=== PATIENT | female | born 1995 | race Caucasian/White ===

== ENCOUNTER → 2025-04-26 | Outpatient (CLI) | payer OTHER, SELFPAY ==
--- NOTE | 2025-04-26 15:47 | MRI_ITS ---
PROCEDURE: BRAIN WITHOUT CONTRAST 04/26/2025 REASON FOR EXAM: EPILEPSY AND HEADACHES TECHNIQUE: Procedure Code: MRIBR Modality: MR Procedure: BRAIN WITHOUT CONTRAST Multiplanar and multisequence images were obtained. FINDINGS: A cluster of FLAIR hyperintensities are noted in the subcortical and deep white matter of the right frontal lobe, nonspecific. Otherwise the brain parenchyma appears unremarkable. No rivera matter heterotopia or cortical dysplasia. The bilateral hippocampal gyri are symmetric, without asymmetric atrophy nor abnormal signal. The midline structures are intact, specifically the corpus callosum, septum pellucidum, pituitary gland, and cerebellar vermis. The cervicomedullary junction appears unremarkable. A 10 mm oval low T1, low T2 lesion is noted in the midline of the posterior scalp, probably representing a small sebaceous cyst. The paranasal sinuses and mastoid air cells are clear. MRI/Brain without Contrast IMPRESSION: Cluster of nonspecific FLAIR hyperintensities in the right frontal white matter . Diagnostic considerations include findings which can be seen in patients experiencing migraine headaches. Otherwise unremarkable MRI of the brain. 10 mm oval posterior scalp lesion, probably a sebaceous cyst. Reading Location: [id number]
--- OUTSIDE RECORDS SUMMARY | 2025-04-26 17:54 | XMS RPT_ITS | CCD ---
Author Organization [facility] Care Team Providers Care Pattern Developer Name Role Phone Sam Orlando Unavailable Unavailable Rosalina Santillan Unavailable Unavailable Rosalina Santillan MD Primary Care Provider Rosalina Santillan Unavailable Unavailable Unavailable HANS SIMMONS Referring UnavailHANS Savage Attending UnavailVicenta Jc Primary Care Unavailable Unavailable Primary Care Provider UnavailRosalina Ackerman MD Primary Care Provider [phone] Unavailable Primary Care Provider UnavailGERARD Aquino Attending Unavailable HANS SIMMONS Attending Unavailable HANS SIMMONS Attending Unavailable Rosalina Santillan MD Primary Care Provider Unavailable Primary Care Provider UnavailLIBERTAD Wiley Attending Unavailable Assessment, Health Risk Referring Unavaila ellis Garcia, Health Risk Attending UnavailHANS Savage Attending Unavailable HANS SIMMONS Referring Unavailable ROSALINA SANTILLAN Primary Care Unavailable ROSALINA SANTILLAN Attending Unavailable ROSALINA SANTILLAN Primary Care Unavailable CATE ZAPATA Attending Unavailable ROSALINA SANTILLAN Primary Care Unavailable Medications Current Medications Medication Drug Class(es) Dates Sig (Normalized) Sig (Original) cholecalciferol 0.05 mg oral tablet (7 sources) Vitamin D take 1 tablet by mouth once daily cholecalciferol (Vitamin D-3) 50 MCG (1999 UT) tablet Take 1 tablet (2,000 Units) by mouth once daily. Active ferrous sulfate 325 mg oral tablet (17 sources) Start: 06-04-2023 End: 12-20-2024 take 1 tablet by mouth once daily at breakfast FeroSul 325 (65 Fe) MG tablet TAKE 1 TABLET BY MOUTH DAILY WITH BREAKFAST 90 tablet 1 12/20/2024 Active fluconazole 150 mg oral tablet (1 source) Azole Antifungal Start: 10-12-2024 fluconazole (Diflucan) 150 mg tablet Indications: Theresa vaginitis Take 1 tablet by mouth every 72 hours as needed, up to 3 doses 3 tablet 10/12/2024 Active folic acid 1 mg oral tablet (20 sources) Start: 03-14-2020 End: 02-01-2025 take 1 tablet by mouth once daily folic acid (Folvite) 1 MG tablet Take 1,000 mcg by mouth daily. 05/21/2023 Active Start: 11-04-2013 folic acid 1 m g tablet Take 1,000 mcg by mouth. 0 11/04/2013 Active Comment on above: Take 1,000 mcg by mo uth. lamoTRIgine 150 mg oral tablet (20 sources) Mood Stabilizer, Anti-epileptic Agent Start: 07-17-2015 lamoTRIgine (LAMICTAL) 150 MG tablet 150 mg daily 150 mg in the morning, and 1.5 tablets in the evening (225 mg) 11 07/17/2015 Active Start: 05-06-2014 take 1 tablet by haim th once daily in the morning, then take 1 tablet by mouth once daily at bedtime lamoTRIgine (LaMICtal) 150 MG tablet TAKE 1 TABLET BY MOUTH EVERY MORNING and TAKE 1 & 1/2 (ONE AND ONE-HALF) TABLETS BY MOUTH EVERY DAY AT BEDTIME 05/21/2023 Active Comment on above: TAKE 1 TABLET BY HAIM TH EVERY MORNING and TAKE 1 & 1/2 (ONE AND ONE-HALF) TABLETS BY MOUTH EVERY DAY AT BEDTIME Multiple Vitamins-Minerals (THERAPEUTIC MULTIVITAMIN-MINERA LS) tablet (4 sources) take 1 tablet by mouth once daily Multiple Vitamins-Minerals (THERAPEUTIC MULTIVITAMIN-MINERALS) tablet Take 1 tablet by mouth daily 0 Active ofloxacin 3 mg/ml ophthalmic solution (1 source) Quinolone Antimicrobial Start: 06-26-19 End: 07-03-19 take 2 drop(s) into the eye(s) three times daily ofloxacin (OCUFLOX) 0.3 % ophthalmic solution Indications: Acute bacterial conjunctivitis of right eye Use 2 Drops in the right eye three times a day for 7 days. 5 mL 0 06/26/2023 07/03/2023 Active Comment on above: Use 2 Drops in the r ight eye three times a day for 7 days. omega-3 fatty acids-fish oil (One-Per-Day [place]-3) 684-1,200 mg capsule (3 sources) omega-3 fatty acids-fish oil (One-Per-Day [place]-3) 684-1,200 mg capsule Take by mouth. Active omega-3 fatty ac ids-fish oil (One-Per-Day [place]-3) 684-1,200 mg capsule Take by mouth. 0 Active spironolactone 50 mg oral tablet (8 sources) Aldosterone Antagonist Start: 04-19-2015 take 1 tablet by mouth twice daily spironolactone (ALDACTONE) 50 MG tablet Take 50 mg by mouth 2 times daily 0 04/19/2015 Active End: 03-14-2022 take 1 tablet by mouth once daily Spironolactone 50 MG Oral Tablet TAKE 1 TABLET DAILY. Quantity: 30 Refills: 4 Ordered: 14-Mar-2022 DO End : 14-Mar-2022 Complete vitamin b12 1 mg oral tablet (7 sources) Vitamin B12 take 1 tablet by mouth once daily cyanocobalamin (Vitamin B-12) 1,000 mcg tablet Take 1 tablet (1,000 mcg) by mouth once daily. Active Completed/Discontinued Medications Medication Drug Class(es) Dates Sig (Normalized) Sig (Original) ibuprofen 600 mg oral tablet (3 sources) Nonsteroidal Anti-inflammatory Drug Start: 06-21-2020 End: 03-14-2022 take 1 tablet by mouth every six hours Ibuprofen 600 MG Oral Tablet TAKE 1 TABLET EVERY 6 HOURS. Start one day pre-op Quantity: 15 Refills: 0 Ordered: 21-Jun-2020 DO Start : 21-Jun-2020 End : 14-Mar-2022 Complete norethindrone 0.35 mg oral tablet (1 source) Norethindrone 0. 35 MG Oral Tablet Refills: 0 Active [place] 3 1200 MG Oral Capsule (4 sources) [place] 3 1200 MG Oral Capsule TAKE DIRECTED. Quantity: 0 Refills: 0 Ordered: 14-Mar-2022 DO Active [place] 3 1200 MG Oral Capsule TAKE DIRECTED. Quantity: 0 Refills: 0 Ordered: 28-Feb-2021 DO Active Vitamin K TABS (4 sources) Vitamin K TABS T THIAGO 1 TABLET DAILY DIRECTED. Quantity: 0 Refills: 0 Ordered: 14-Mar-2022 DO Active Vitamin K TABS T THIAGO 1 TABLET DAILY DIRECTED. 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-relat ed (focal) (partial) epilepsy and epileptic syndromes with simple partial seizures, without mention of intractable epilepsy] Onset: 04-02-2023 04-03-2023 Chronic Epilepsy; convulsions (20 sources) Seizure; Translations: [Unspecified convulsions] Onset: 02-27-2021 Episodic Headache; including migraine (1 source) Tension-type headache; Translations: [Tension-type headache, unspecified, not intractable] 02-12-2024 Chronic Inflammation; infection of eye (except that caused by tuberculosis or sexually transmitteddisease) (1 source) Acute infectious conjunctivitis; Translations: [Unspecified acute conjunctivitis, right eye] 06-26-2023 Episodic Malaise and fatigue (7 sources) Malaise and fatigue; Translations: [Chronic fatigue, unspecified] Onset: 11-25-2024 06-03-2023 Chronic Malaise and fatigue (2 sources) Other malaise; Translations: [Other malaise] Onset: 11-25-2024 Episodic Menstrual disorders (5 sources) Irregular periods; Translations: [Irregular menstruation, unspecified] 06-03-2023 Chronic Mycoses (1 source) Candidiasis of vagina; Translations: [Theresa vaginitis] 10-12-2024 Episodic Nutritional deficiencies (2 sources) Vitamin D deficiency; Translations: [Vitamin D deficiency, unspecified] 10-24-2023 Chronic Nutritional deficiencies (2 sources) Iron deficiency; Translations: [Iron deficiency] 10-24-2023 Episodic Other lower respiratory disease (3 sources) Cough; Translations: [Cough in adult] 06-03-2023 Episodic Other screening for suspected conditions (not mental disorders or infectious disease) (2 sources) Patient encounter status; Translations: [Encounter for screening for lipoid disorders] 10-24-2023 Episodic Other skin disorders (4 sources) Loss of hair; Translations: [Nonscarring hair loss, unspecified] Episodic Other skin disorders (2 sources) Nonscarring hair loss, unspecified; Translations: [Nonscarring hair loss, unspecified] Onset: 11-25-2024 Episodic Residual codes; unclassified (2 sources) Family history of cancer of colon; Translations: [Family history of malignant neoplasm of digestive organs] 10-24-2023 Episodic Residual codes; unclassified (2 sources) Blood pressure alteration; Translations: [Other general symptoms and signs] 11-25-2024 Episodic Past or Other Problems Problem Classification Problem Date Documented Date Episodic/Chronic Headache; including migraine (2 sources) Headache; Translations: [Headache] Onset: 02-12-2024 Episodic Other aftercare (4 sources) Surgical follow-up; Translations: [Encounter for follow-up examination after completed treatment for conditions other than malignant neoplasm] Onset: 12-21-2015 Resolved: 02-19-2018 02-19-2018 Episodic Other and unspecified benign neoplasm (20 sources) Benign neoplasm, unspecified site; Translations: [Benign neoplasm of unspecified site] Onset: 10-27-2015 10-27-2015 Episodic Other skin disorders (20 sources) Cyst of scalp; Translations: [Follicular cyst of the skin and subcutaneous tissue, unspecified] Onset: 12-07-2015 12-07-2015 Episodic Other skin disorders (20 sources) Acne; Translations: [Acne, unspecified] Onset: 02-27-2021 02-27-2021 Episodic Unclassified (3 sources) Onset: 04-03-2023 Resolved: 02-02-2024 04-03-2023 NEGATED: Highlighted row has been ruled out! trauma (4 sources) trauma; Translations: [ trauma, unspecified] Episodic NEGATED: Highlighted row has been ruled out!Other injuries and conditions due to external causes (4 sources) H/O: head injury; Translations: [Personal history of other injury] Episodic NEGATED: Highlighted row has been ruled out!Other nervous system disorders (4 sources) H/O: meningitis; Translations: [Personal history of infections of the central nervous system] Episodic NEGATED: Highlighted row has been ruled out!Other nervous system disorders (4 sources) H/O: encephalitis; Translations: [Personal history of infections of the central nervous system] Episodic NEGATED: Highlighted row has been ruled out!Other nutritional; endocrine; and metabolic disorders (4 sources) Developmental delay; Translations: [Lack of normal physiological development, unspecified] Episodic NEGATED: Highlighted row has not occurred!Residual codes; unclassified (2 sources) Disease Episodic NEGATED: Highlighted row has been ruled out!Residual codes; unclassified (4 sources) H/O: febrile convulsions; Translations: [Personal history of other disorders of nervous system and sense organs] Episodic NEGATED: Highlighted row has been ruled out!Short gestation; low weight; and growth retardation (4 sources) Premature infant; Translations: [Other infants, unspecified [weight]] Episodic Results Test Name Value Interpretation Reference Range Facility 36on 12-20-2024 36 Recent Visits Date Type Provider Dept 11/25/24 Office Visit Rosalina Santillan MD [facility] Showing recent visits within past 365 days and meeting all other requirements Future Appointments No visits were found meeting these conditions. Showing future appointments within next 90 days and meeting all other requirements Requested Prescriptions Pending Prescriptions Disp Refills FeroSul 325 (65 Fe) MG tablet [Pharmacy Med Name: FeroSul 325 mg (65 mg iron) tablet] 90 tablet 1 Sig: TAKE 1 TABLET BY MOUTH DAILY WITH BREAKFAST Provider: Rosalina Santillan MD Verified pharmacy: yes Verified day(s) supplied: yes Verified refill(s) needed (previous prescription showing no refills in chart): Yes Have you received any controlled medications from any other provider? N/A Overdue for visit: No If yes - patient scheduled? No Most recent labs completed in chart? Yes Anemia: Lab Results Component Value Date HGB 13.8 10/25/2023 HCT 40.7 10/25/2023 MCV 87.9 10/25/2023 MCH 29.8 10/25/2023 MCHC 33.9 10/25/2023 Normal [facility] Office Visiton 11-25-2024 Follow-up visit [id number] Sweta Chris 1995 F Date Provider Department Center 11/25/2024 [id number] SANTILLAN [facility] Family History Problem Relation Age of Onset Breast cancer Mother's Sister Other Brother No Known Problems Mother Heart attack Father's Brother No Known Problems Father Asthma Brother Family Status - Relation Status Age at Mother's Sister Brother Alive Mother Alive Father's Brother Father Alive Brother Alive Sister Alive Level of Service:55661 [place] OFFICE/OUTPATIENT ESTABLISHED LOW MDM 20 MIN Reason for Visit and Comments: Hypertension [[id number]] Normal [facility] Progress Noteon 11-25-2024 Progress Note [facility] - [address] [place] [address] Dept: [phone] Dept Loc: [phone] Reason for Visit: Hypertension Assessment and Plan Assessment & Plan Chronic fatigue and malaise Orders: CBC auto differential; Future Comprehensive metabolic panel; Future Lipid panel; Future Iron level; Future Seizures (HCC) Chronic stable issue neurology is following patient currently on Lamictal Orders: CBC auto differential; Future Comprehensive metabolic panel; Future Lipid panel; Future Iron level; Future Hair loss No acute issue. I ordered vitamin D to TSH recommend [id number] multivitamin or biotin. Orders: Vitamin D Deficiency Screening (Vit D 25); Future Vitamin D Deficiency Screening (Vit D 25); Future TSH; Future Blood pressure alteration Blood pressure was discussed in detail will have her return in about 1 to 2 weeks to get another blood pressure we can continue to monitor if it does get elevated we discussed starting medications but at this time we will continue to monitor a low-salt DASH diet recommended current treatment plan is effective, no change in therapy, orders and follow up as documented in EMR, lab results reviewed with patient, repeat labs ordered prior to next appointment, reviewed compliance with lifestyle measures, reviewed diet, exercise and weight control, reviewed medications and side effects in detail Return visit in 3 months. Subjective Hypertension Pertinent negatives include no headaches. is a 29-year-old female who is here for follow-up. She was seeing her neurologist who stated that her blood pressure was elevated at the time. During his appointment. Her blood pressure today is borderline. We discussed this. She states sometimes she gets anxious at doctors offices she is asymptomatic no chest pain or shortness of breath no headache or blurred vision her past medical history significant as her seizures in which she is seeing neurology for. Review of Systems Constitutional: Negative. Negative for activity change, appetite change and fever. HENT: Negative. Negative for congestion. Eyes: Negative. Negative for discharge. Respiratory: Negative. Negative for chest tightness. Cardiovascular: Negative. Gastrointestinal: Negative. Endocrine: Negative. Negative for cold intolerance. Genitourinary: Negative for difficulty urinating. Musculoskeletal: Negative. Neurological: Negative. Negative for dizziness, facial asymmetry and headaches. Hematological: Negative. Allergies[1] Current Medications[2] Problem List[3] Medical History[4] Social History Tobacco Use Smoking status: Never Smokeless tobacco: Never Substance Use Topics Alcohol use: Not Currently Alcohol/week: 2.0 standard drinks of alcohol Surgical History[5] Family History[6] Health Maintenance Topic Date Due HIV Screening Never done Varicella Vaccines (1 of 2 - 13+ 2-dose series) Never done Pap Smear Never done DTaP/Tdap/Td Vaccines (7 - Td or Tdap) 08/08/2020 COVID-19 Vaccine ( - season) Never done Influenza Vaccine (1) 01/24/2025 Depression Screening 11/25/2025 Zoster Vaccines (1 of 2) 11/15/2045 RSV Immunization for Adults (1 - 1-dose 75+ series) 11/15/2070 HIB Vaccines Completed Hepatitis B Vaccines Completed IPV Vaccines Completed Hepatitis A Vaccines Completed MMR Vaccines Completed Hepatitis C Screening Completed RSV Immunization under 20 Months Aged Out Meningococcal Vaccine Aged Out Rotavirus Vaccines Aged Out HPV Vaccines Aged Out Pneumococcal Vaccine: Pediatrics (0 to 5 Years) and At-Risk Patients (6 to 49 Years) Aged Out Meningococcal B Vaccine Aged Out Objective BP 138/88 (BP Location: Left arm, Patient Position: Sitting, BP Cuff Size: Adult) Pulse 95 Temp 36.8 ?C (98.2 ?F) (Temporal) Ht 5' 10.5 (1.791 m) Wt 212 lb (96.2 kg) BMI 29.99 kg/m? Physical Exam Vitals and nursing note reviewed. Constitutional: Appearance: Normal appearance. HENT: Head: Normocephalic and atraumatic. Nose: No congestion or rhinorrhea. Mouth/Throat: Mouth: Mucous membranes are moist. Pharynx: Oropharynx is clear. No posterior oropharyngeal erythema. Eyes: Extraocular Movements: Extraocular movements intact. Conjunctiva/sclera: Conjunctivae normal. Pupils: Pupils are equal, round, and reactive to light. Cardiovascular: Pulses: Normal pulses. Heart sounds: Normal heart sounds. No murmur heard. Pulmonary: Effort: Pulmonary effort is normal. No respiratory distress. Breath sounds: Normal breath sounds. No wheezing. Abdominal: General: Abdomen is flat. Bowel sounds are normal. Palpations: Abdomen is soft. Tenderness: There is no abdominal tenderness. Musculoskeletal: General: No swelling. Cervical back: Normal range of motion. Skin: General: Skin is warm and dry. Neur (more content not included)... Normal [facility] Progress Note Chronic stable issue neurology is following patient currently on Lamictal Orders: CBC auto differential; Future Comprehensive metabolic panel; Future Lipid panel; Future Iron level; Future Normal [facility] Hepatitis B Surface Antibody on 11-23-2024 HEP B Surf Ab Non-Reactive Normal [facility] Comment on above: Result Comment: <8.5 mIU/mL: Non-Reactive 8.5<= x <11.5 mIU/mL: Indeterminate >=11.5 mIU/mL: Reactive Non Reactive: Inconsistent with immunity less than <10 mIU/mL Reactive: Consistent with immunity greater than or equal to 10 mIU/mL Performed By: #### L [id number] #### [facility] Laboratory [facility] [address]el[address]ero. [place], [place], [id number] Lamotrigine levelon 09-29-19 25 lamoTRIgine [Mass/Vol] 7.[address] [facility] Comment on above: This test was developed and its analytical performance characteristics have been determined by [employer] [place], [place]. It has not been cleared or approved by the U.S. Food and Drug Administration. This assay has been validated pursuant to the CLIA regulations and is used for clinical purposes. Test Performed by [employer], [employer] [facility], [address] [facility], [place], [place] Norman Ward M.D., Ph.D., Director of Laboratories , CLIA [id number] [facility] LAMOTRIGINE LEVEL (BKR QUEST )on 09-25-2024 QUEST LAMOTRIGINE 7.5 mcg/mL Normal 2.5-15.0 [facility] Comment on above: Result Comment: This test was developed and its analytical performance characteristics have been determined by [facility]. It has not been cleared or approved by the U.S. Food and Drug Administration. This assay has been validated pursuant to the CLIA regulations and is used for clinical purposes. Test Performed by [employer] [facility] [place] [facility], [address] [place], [place] Norman Ward M.D., Ph.D., Director of Laboratories , CLIA [id number] Performed By: #### L [id number] #### [employer]) [address] [place], [place] [facility] 36on 03-15-2024 36 Recent Visits Date Type Provider Dept 10/24/23 Office Visit Rosalina Santillan MD [facility] 06/03/23 Office Visit Rosalina Santillan MD [facility] Showing recent visits within past 365 days and meeting all other requirements Future Appointments Date Type Provider Dept 04/30/24 Appointment Rosalina Santillan MD [facility] Showing future appointments within next 90 days and meeting all other requirements Requested Prescriptions Pending Prescriptions Disp Refills FeroSul 325 (65 Fe) MG tablet [Pharmacy Med Name: FeroSul 325 mg (65 mg iron) tablet] 90 tablet 1 Sig: TAKE 1 TABLET BY MOUTH DAILY WITH BREAKFAST Provider: Rosalina Santillan MD Verified pharmacy: yes Verified day(s) supplied: yes Verified refill(s) needed (previous prescription showing no refills in chart): Yes Have you received any controlled medications from any other provider? N/A Overdue for visit: No If yes - patient scheduled? Yes Most recent labs completed in chart? Yes Anemia: Lab Results Component Value Date HGB 13.8 10/25/2023 HCT 40.7 10/25/2023 MCV 87.9 10/25/2023 MCH 29.8 10/25/2023 MCHC 33.9 10/25/2023 Normal [facility] Office Visiton 02-12-2024 Follow-up visit [id number] Cole 1995 F Date Provider Department Center 02/12/2024 [id number] ZAPATA [facility] Family History Problem Relation Age of Onset Breast cancer Mother's Sister Other Brother No Known Problems Mother Heart attack Father's Brother No Known Problems Father Asthma Brother Family Status - Relation Status Age at Mother's Sister Brother Alive Mother Alive Father's Brother Father Alive Brother Alive Sister Alive Level of Service:04926 [place] OFFICE/OUTPATIENT ESTABLISHED LOW [facility] 20 MIN Reason for Visit and Comments: Headache [52] - Ongoing headaches. Started last Friday02/03/24. Has had a headache everyday since then. Some days are better than others. Has been taking tylenol. Pain is mostly in the front behind eyes, sometimes its on the top of head, sometimes its on the side. Started period last Friday-unsure if related. Normal [facility] Progress Noteon 02-12-2024 Progress Note [facility] [place] [id number] [facility] [address] [facility] [address] Dept Visit Date: 02/12/24 HPI: Sweta Chris is a 28 y.o. female who presents today for: Chief Complaint Patient presents with Headache Ongoing headaches. Started last Friday02/03/24. Has had a headache everyday since then. Some days are better than others. Has been taking tylenol. Pain is mostly in the front behind eyes, sometimes its on the top of head, sometimes its on the side. Started period last Friday-unsure if related. Patient of Dr. Santillan, here today for evaluation of acute problem; POD schedule. Headache This is a new problem. The current episode started in the past 7 days. The problem occurs constantly. The problem has been gradually improving. The pain is located in the Left unilateral and temporal region. The pain does not radiate. The pain quality is not similar to prior headaches. The quality of the pain is described as aching and band-like. The pain is at a severity of 4/10. The pain is moderate. Associated symptoms include insomnia and phonophobia. Pertinent negatives include no abnormal behavior, anorexia, blurred vision, dizziness, ear pain, eye pain, eye redness, fever, hearing loss, loss of balance, nausea, numbness, photophobia, scalp tenderness, sinus pressure, sore throat, tinnitus, visual change or weakness. The symptoms are aggravated by menstrual cycle and fatigue. She has tried acetaminophen and darkened room for the symptoms. The treatment provided mild relief. There is no history of cluster headaches, hypertension, migraine headaches or migraines in the family. Answers submitted by the patient for this visit: Other (Submitted on 02/11/2024) Please describe your symptoms.: Headache that varies in intensity and can sometimes be helped with Tylenol. Occurs mostly around the zoroastrian or behind the eyes, but sometimes on top of head as well. Have you had these symptoms before?: No How long have you been having these symptoms?: For a week Please list any medications you are currently taking for this condition.: Tylenol Extra Strength Please describe any probable cause for these symptoms. : The first day I had the headache was after I had a random sleepless night. I gave it a few days to go away thinking it was from lack of sleep, but it hasn?t gone away in the last 7 days Current Outpatient Medications Medication Sig Dispense Refill FeroSul 325 (65 Fe) MG tablet TAKE 1 TABLET BY MOUTH DAILY WITH BREAKFAST 90 tablet 1 folic acid (Folvite) 1 MG tablet Take 1,000 mcg by mouth daily. lamoTRIgine (LaMICtal) 150 MG tablet TAKE 1 TABLET BY MOUTH EVERY MORNING and TAKE 1 & 1/2 (ONE AND ONE-HALF) TABLETS BY MOUTH EVERY DAY AT BEDTIME No current facility-administered medications for this visit. No Known Allergies Past Medical History: Diagnosis Date Epilepsy (HCC) Scalp cyst Subjective: Review of Systems Constitutional: Negative for fever. HENT: Negative for ear pain, hearing loss, sinus pressure, sore throat and tinnitus. Eyes: Negative for blurred vision, photophobia, pain and redness. Gastrointestinal: Negative for anorexia and nausea. Neurological: Positive for headaches. Negative for dizziness, weakness, numbness and loss of balance. Psychiatric/Behaviora l: Positive for sleep disturbance. The patient has insomnia. Objective: BP (!) 142/80 Pulse 90 Temp 36.8 ?C (98.2 ?F) (Temporal) Ht 5' 10.7 (1.796 m) Wt 195 lb (88.5 kg) SpO2 97% BMI 27.43 kg/m? Physical Exam Vitals and nursing note reviewed. Constitutional: General: She is not in acute distress. Appearance: Normal appearance. She is not toxic-appearing. HENT: Head: Normocephalic and atraumatic. Jaw: There is normal jaw occlusion. Eyes: Extraocular Movements: Extraocular movements intact. Conjunctiva/sclera: Conjunctivae normal. Pupils: Pupils are equal, round, and reactive to light. Cardiovascular: Rate and Rhythm: Normal rate and regular rhythm. Pulmonary: Effort: Pulmonary effort is normal. Neurological: Mental Status: She is alert and oriented to person, place, and time. Cranial Nerves: No cranial nerve deficit. Motor: No weakness. Coordination: Coordination normal. Gait: Gait normal. Psychiatric: Mood and Affect: Mood normal. Assessment: Diagnosis Plan 1. Acute non intractable tension-type headache Plan: Sweta was seen today for headache. Diagnoses and all orders for this visit: Acute non intractable tension-type headache (Primary) Acute problem. Symptoms and exam consistent with tension headache. No red flags, no neuro deficits. No signs of URI/sinusitis or other infectious process. Offered toradol today, declines. Advised to continue to treat with rest, cold packs, tylenol, dark room, ensure adequate hydration. Reviewed red flags to return. Follow up if symptoms worsen or fail to improve. (more content not included)... Normal [facility] 25-hydroxyvitamin D3 [Mass/V ol]on 10-25-2023 Interpretation and review of laboratory results Normal [facility] Therapy is based on measurement of Total 25-OHD with the following classification levels: Less than 20 ng/mL: Indicative of Vit D deficiency 20-30 ng/mL: Suggests Vit D insufficiency Optimal: Greater than or equal to 30 ng/mL Test performed by [employer] Competitive Immunoassay, measuring Total Vitamin D, not individual fractions. [facility] CBC W Auto Differential pane l (Bld)on 10-25-2023 Basophils (Bld) [#/Vol] 0.1 10*3/uL 0.0 - 0.2 10*3/uL [facility] Basophils/100 WBC (Bld) 1.1 % 0.0 - 2.0 % [facility] Eosinophils (Bld) [#/Vol] 0.2 10*3/uL 0.0 - 0.5 10*3/uL [facility] Eosinophils/100 WBC (Bld) 5.1 % 0.0 - 6.0 % [facility] Erythrocyte distribution width (RBC) [Ratio] 12.7 % 11.5 - 15.0 % [facility] Hematocrit (Bld) [Volume fraction] 40.7 % 35.0 - 47.0 % [facility] Hemoglobin (Bld) [Mass/Vol] 13.8 g/dL 11.7 - 16.0 g/dL [facility] Immature granulocytes (Bld) [#/Vol] 0.0 10*3/uL NINF - 0.1 10*3/uL [facility] Immature granulocytes/100 WBC (Bld) 0.2 % 0.0 - 2.0 % [facility] Interpretation and review of laboratory results Normal [facility] Lymphocytes (Bld) [#/Vol] 1.3 10*3/uL 1.0 - 4.3 10*3/uL [facility] Lymphocytes/100 WBC (Bld) 26.7 % 15.0 - 45.0 % [facility] MCH (RBC) [Entitic mass] 29.8 pg 26.0 - 34.0 pg [facility] MCHC (RBC) [Mass/Vol] 33.9 % 30.5 - 36.0 % [facility] MCV (RBC) [Entitic vol] 87.9 fL 77.0 - 99.0 fL [facility] Monocytes (Bld) [#/Vol] 0.4 10*3/uL 0.0 - 0.9 10*3/uL [facility] Monocytes/100 WBC (Bld) 8.9 % 5.0 - 13.0 % [facility] Neutrophils (Bld) [#/Vol] 2.7 10*3/uL 1.8 - 7.5 10*3/uL [facility] Neutrophils/100 WBC (Bld) 58.0 % 38.0 - 82.0 % [facility] Nucleated RBC/100 WBC (Bld) [Ratio] 0.0 % [facility] Platelet mean volume (Bld) [Entitic vol] 9.8 fL 9.0 - 12.7 fL [facility] Comment on above: MPV is a calculated measurement using platelet volume ratio Platelets (Bld) [#/Vol] 281 10*3/uL 140 - 440 10*3/uL [facility] RBC (Bld) [#/Vol] 4.63 10*6/uL 3.80 - 5.2 0 10*6/uL [facility] WBC (Bld) [#/Vol] 4.7 10*3/uL 3.6 - 10.7 10*3/uL [facility] Iron and Iron binding capaci ty panelon 10-25-2023 Interpretation and review of laboratory results Normal [facility] Iron [Mass/Vol] 131 ug/dL 37 - 170 ug/dL [facility] Lipid 1996 panelon Cholesterol [Mass/Vol] 185 mg/dL NINF - 200 mg/dL [facility] Cholesterol in HDL [Mass/Vol] 65 mg/dL High 40 - 60 mg/dL [facility] Cholesterol in LDL [Mass/Vol] 107 mg/dL High 0 - <100 [facility] Cholesterol.total/Lashawn sterol in HDL [Mass ratio] 3 {ratio} [facility] Comment on above: Ref Range: < 3 Low Risk for CHD 3-6 Mod Risk for CHD > 6 High Risk for CHD Interpretation and review of laboratory results Abnormal [facility] Triglyceride [Mass/Vol] 66 mg/dL NINF - 150 mg/dL [facility] No Panel Informationon 10-24 [facility] TSHon 10-25-2023 [facility] Interpretation and review of laboratory results Normal [facility] Vitamin D Deficiency Screeni ng (Vit D 25)on 10-25-2023 25-hydroxyvitamin D3 [Mass/Vol] 54 ng/mL 30 - 100 ng/mL [facility] US Pelvison 08-15-2023 1. Normal pelvic ultrasound. Report Dictated on Electronically Signed By: Tanmay De La Fuente MD Electronically Signed Date/Time: 08/15/2023 4:04 PM EDT [facility] Patient Name: SWETA CHRIS : 1995 Exam Date/Time: 08/15/2023 15:19 Procedure: US PELVIS Ordering Provider: SANTILLAN DIANA Reason For Exam: PELVIC PAIN ULTRASOUND PELVIS: CLINICAL INDICATION: Pelvic pain, irregular menses LMP: 07/01/2023 COMPARISON: none TECHNIQUE: Transabdominal ultrasound of pelvis, including color flow and spectral Doppler imaging FINDINGS: Uterus: Orientation: Anteverted Size: 8.6 x 5.2 x 3.9 cm Endometrium: 10 mm Mass: none Cervix: Normal Right Ovary: Size: 2.0 x 2.0 x 1.7 cm Mass: none Cyst: None Color flow/Doppler waveform: normal Left Ovary: Size: 1.9 x 1.7 x 2.5 cm Mass: none Cyst: None Color flow/Doppler waveform: normal Cul-de-sac: No free pelvic fluid [facility] Tanmay De La Fuente MD - 08/15/2023 Patient Name: SWETA CHRIS : 1995 Exam Date/Time: 08/15/2023 15:19 Procedure: US PELVIS Ordering Provider: SANTILLAN DIANA Reason For Exam: PELVIC PAIN ULTRASOUND PELVIS: CLINICAL INDICATION: Pelvic pain, irregular menses LMP: 07/01/2023 COMPARISON: none TECHNIQUE: Transabdominal ultrasound of pelvis, including color flow and spectral Doppler imaging FINDINGS: Uterus: Orientation: Anteverted Size: 8.6 x 5.2 x 3.9 cm Endometrium: 10 mm Mass: none Cervix: Normal Right Ovary: Size: 2.0 x 2.0 x 1.7 cm Mass: none Cyst: None Color flow/Doppler waveform: normal Left Ovary: Size: 1.9 x 1.7 x 2.5 cm Mass: none Cyst: None Color flow/Doppler waveform: normal Cul-de-sac: No free pelvic fluid IMPRESSION: 1. Normal pelvic ultrasound. Report Dictated on Electronically Signed By: Tanmay De La Fuente MD Electronically Signed Date/Time: 08/15/2023 4:04 PM EDT [facility] Radiology Study observation (narrative) [facility] US PelvisOrdered By: Avril De La Fuente on 08-15-2023 [employer] Work Phone: [facility] 06-26-2023 [facility] Office Visit ([place] ) SWETA CHRIS ([id number]) 1995 F Date Time Provider Department 06/26/23 6:05 PM GERARD HARPER During your visit today, we recorded the following information about you: Temperature Pulse Respiration Blood pressure 98.6 degrees 84/minute 18/minute 117/84 Weight 92.7 kg Gerard Harper PA-C 06/26/2023 6:23 PM Signed 06/26/2023 Patient presents with: Eye Problem: Right eye discomfort, red, swollen and drainage. Started this morning SUBJECTIVE: This is a 27 year old that is here today here for right red eye with matting and thick discharge that she awoke with today. It has gradually worsened throughout the day today. The upper lid is slightly swollen but not tender. 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 No vision changes or eye pain. No concern for foreign object or trauma. No itchy or watery eyes. No other allergy or sinus symptoms. Denies fever, chills, sweats, or fatigue. Patient denies wheezing, shortness of breath, increased WOB, or chest pain. No other URI or sick symptoms. Pain on scale of 0-10 with 0 being no pain and 10 being greatest pain: - Nothing makes the symptoms better. Nothing makes them worse. Self-treatment:. none The severity is mild and the symptoms are not improving. The patient did not have a similar problem in the last 3 months. The patient did not take any antibiotics in the last 3 months. Barriers to learning: none. Reviewed meds, OTCs, herbals or supplements. Reviewed allergies, medications, social history, and past medical history. No past medical history on file. ALLERGIES Patient has no known allergies. MEDICATIONS No current outpatient medications on file. No current facility-administered medications for this visit. Medications and allergies reviewed by this provider SOCIAL HISTORY REVIEW OF SYSTEMS Review of Systems ROS: constitutional-neg, HENT-neg, Eyes- eye complaint, heart-neg, respiratory-neg, skin-neg, lymph-neg, neuro- neg, Allergy- neg- All systems neg except as noted above in HPI. OBJECTIVE: BP 117/84 Pulse 84 Temp 37 ?C (98.6 ?F) (Tympanic) Resp 18 Wt 92.7 kg (204 lb 5.9 oz) SpO2 99% . Vital signs reviewed by this provider. Physical Exam Vitals reviewed. Constitutional: General: She is not in acute distress. Appearance: Normal appearance. She is well-developed and normal weight. She is not ill-appearing, toxic-appearing or diaphoretic. HENT: Head: Normocephalic and atraumatic. No right periorbital erythema or left periorbital erythema. Salivary Glands: Right salivary gland is not diffusely enlarged or tender. Left salivary gland is not diffusely enlarged or tender. Right Ear: Tympanic membrane, ear canal and external ear normal. Left Ear: Tympanic membrane, ear canal and external ear normal. Nose: Nose normal. No congestion or rhinorrhea. Right Sinus: No maxillary sinus tenderness or frontal sinus tenderness. Left Sinus: No maxillary sinus tenderness or frontal sinus tenderness. Eyes: General: Lids are normal. No allergic shiner, visual field deficit or scleral icterus. Right eye: No foreign body, discharge or hordeolum. Left eye: No foreign body, discharge or hordeolum. Extraocular Movements: Extraocular movements intact. Right eye: Normal extraocular motion and no nystagmus. Left eye: Normal extraocular motion and no nystagmus. Conjunctiva/sclera: Right eye: Right conjunctiva is injected. Exudate present. Pupils: Pupils are equal, round, and reactive to light. Pupils are equal. Musculoskeletal: Cervical back: Full passive range of motion without pain. No spinous process tenderness or muscular tenderness. Lymphadenopathy: Head: Right side of head: No submental, submandibular, tonsillar, preauricular or posterior auricular adenopathy. Left side of head: No submental, submandibular, tonsillar, preauricular or posterior auricular adenopathy. Cervical: No cervical adenopathy. Skin: General: Skin is warm. Capillary Refill: Capillary refill takes less than 2 seconds. Findings: No rash. Neurological: General: No focal deficit present. Mental Status: She is alert and oriented to person, place, and time. Cranial Nerves: No facial asymmetry. Psychiatric: Attention and Perception: Attention normal. Behavior: Behavior is cooperative. ASSESSMENT/PLAN: 1. Acute bacterial conjunctivitis of right eye - ICD9: 372.03, ICD10: H10.31 - OFLOXACIN 0.3 % EYE DROPS - Wash hands frequently. - Do not itch or touch eyes. - Use paper towels to wash eyes, and then dispose of after using. - Wash all linens (wash cloths) after each use. Do not share linens.. - Keep out contacts until symptoms have been gone for 3 days, and then start with a new pair.. - Recommend that if you wear eye make-up, you throw away everything you have used recently (more content not included)... Normal [facility] 25-hydroxyvitamin D3 [Mass/V ol]on 06-03-2023 Interpretation and review of laboratory results Abnormal [employer] [facility] Therapy is based on measurement of Total 25-OHD with the following classification levels: Less than 20 ng/mL: Indicative of Vit D deficiency 20-30 ng/mL: Suggests Vit D insufficiency Optimal: Greater than or equal to 30 ng/mL Test performed by [employer] Competitive Immunoassay, measuring Total Vitamin D, not individual fractions. [facility] CBC W Auto Differential pane l (Bld)Ordered By: Diaz Gould on 06-03-2023 Basophils (Bld) [#/Vol] 0.1 10*3/uL 0.0 - 0.2 10*3/uL [employer] [facility] [employer] Basophils/100 WBC (Bld) 1.0 % 0.0 - 2.0 % [facility] [employer] Eosinophils (Bld) [#/Vol] 0.1 10*3/uL 0.0 - 0.5 10*3/uL [employer] [facility] [employer] Eosinophils/100 WBC (Bld) 2.1 % 1.0 - 6.0 % [employer] [facility] [employer] Erythrocyte distribution width (RBC) [Ratio] 13.6 % 11.5 - 14.5 % [employer] [facility] [employer] Hematocrit (Bld) [Volume fraction] 37.8 % 35.0 - 47.0 % [employer] [facility] [employer] Hemoglobin (Bld) [Mass/Vol] 12.2 g/dL 11.7 - 16.0 g/dL [facility] Immature granulocytes (Bld) [#/Vol] 0.0 10*3/uL NINF - 0.0 10*3/uL [facility] Immature granulocytes/100 WBC (Bld) 0.2 % High NINF - 0.0 % [facility] Interpretation and review of laboratory results Abnormal [facility] Lymphocytes (Bld) [#/Vol] 1.6 10*3/uL 1.0 - 4.3 10*3/uL [facility] Lymphocytes/100 WBC (Bld) 25.3 % 20.0 - 40.0 % [facility] MCH (RBC) [Entitic mass] 26.6 pg 26.0 - 34.0 pg [facility] MCHC (RBC) [Mass/Vol] 32.3 % 32.0 - 36.0 % [facility] MCV (RBC) [Entitic vol] 82.5 fL 80.0 - 98.0 fL [facility] Monocytes (Bld) [#/Vol] 0.5 10*3/uL 0.0 - 0.8 10*3/uL [facility] Monocytes/100 WBC (Bld) 7.7 % 2.0 - 10.0 % [facility] Neutrophils (Bld) [#/Vol] 4.0 10*3/uL 1.8 - 7.0 10*3/uL [facility] Neutrophils/100 WBC (Bld) 63.7 % 40.0 - 80.0 % [facility] Platelet mean volume (Bld) [Entitic vol] 9.7 fL 7.4 - 12.4 fL [facility] Comment on above: MPV is a calculated measurement using platelet volume ratio Platelets (Bld) [#/Vol] 349 10*3/uL 140 - 440 10*3/uL [facility] RBC (Bld) [#/Vol] 4.58 10*6/uL 3.8 - 5.20 10*6/uL [facility] WBC (Bld) [#/Vol] 6.3 10*3/uL 3.6 - 10.7 10*3/uL [facility] CBC W Auto Differential pane l (Bld)on 06-03-2023 Basophils (Bld) [#/Vol] 0.1 10*3/uL 0.0 - 0.2 10*3/uL [facility] Basophils/100 WBC (Bld) 0.8 % 0.0 - 2.0 % [facility] Eosinophils (Bld) [#/Vol] 0.1 10*3/uL 0.0 - 0.5 10*3/uL [facility] Eosinophils/100 WBC (Bld) 1.5 % 1.0 - 6.0 % [facility] Erythrocyte distribution width (RBC) [Ratio] 13.7 % 11.5 - 14.5 % [facility] Hematocrit (Bld) [Volume fraction] 37.6 % 35.0 - 47.0 % [facility] Hemoglobin (Bld) [Mass/Vol] 12.2 g/dL 11.7 - 16.0 g/dL [facility] Immature granulocytes (Bld) [#/Vol] 0.0 10*3/uL NINF - 0.0 10*3/uL [facility] Immature granulocytes/100 WBC (Bld) 0.0 % NINF - 0.0 % [facility] Interpretation and review of laboratory results Normal [facility] Lymphocytes (Bld) [#/Vol] 1.8 10*3/uL 1.0 - 4.3 10*3/uL [facility] Lymphocytes/100 WBC (Bld) 27.0 % 20.0 - 40.0 % [facility] MCH (RBC) [Entitic mass] 26.8 pg 26.0 - 34.0 pg [facility] MCHC (RBC) [Mass/Vol] 32.4 % 32.0 - 36.0 % [facility] MCV (RBC) [Entitic vol] 82.6 fL 80.0 - 98.0 fL [facility] Monocytes (Bld) [#/Vol] 0.5 10*3/uL 0.0 - 0.8 10*3/uL [facility] Monocytes/100 WBC (Bld) 7.9 % 2.0 - 10.0 % [facility] Neutrophils (Bld) [#/Vol] 4.1 10*3/uL 1.8 - 7.0 10*3/uL [facility] Neutrophils/100 WBC (Bld) 62.8 % 40.0 - 80.0 % [facility] Platelet mean volume (Bld) [Entitic vol] 9.7 fL 7.4 - 12.4 fL [facility] Comment on above: MPV is a calculated measurement using platelet volume ratio Platelets (Bld) [#/Vol] 343 10*3/uL 140 - 440 10*3/uL [facility] RBC (Bld) [#/Vol] 4.55 10*6/uL 3.8 - 5.20 10*6/uL [facility] WBC (Bld) [#/Vol] 6.5 10*3/uL 3.6 - 10.7 10*3/uL [facility] Cobalamin (Vitamin B12) [Mas s/Vol]on 06-03-2023 Interpretation and review of laboratory results Normal [facility] Comprehensive metabolic 1998 panelon 06-03-2023 Albumin [Mass/Vol] 4.8 g/dL 3.5 - 5.0 g/dL [facility] ALP [Catalytic activity/Vol] 69 U/L 38 - 126 U/L [facility] ALT [Catalytic activity/Vol] 29 U/L 0 - 34 U/L [facility] Anion gap [Moles/Vol] 10 mmol/L 3 - 13 mmol/L [facility] AST [Catalytic activity/Vol] 33 U/L 15 - 46 U/L [facility] Bilirubin [Mass/Vol] 0.4 mg/dL 0.2 - 1 .3 mg/dL [facility] Calcium [Mass/Vol] 9.4 mg/dL 8.4 - 10. 4 mg/dL [facility] Chloride [Moles/Vol] 103 mmol/L 98 - 10 7 mmol/L [facility] CO2 [Moles/Vol] 26 mmol/L 22 - 30 mmol/L [facility] Creatinine [Mass/Vol] 0.56 mg/dL 0.52 - 1.04 mg/dL [facility] GFR/1.73 sq M.predicted MDRD (S/P/Bld) [Vol rate/Area] - PINF [facility] Comment on above: Calculation based on the Chronic Kidney Disease Epidemiology Collaboration (CKD-EPI) equation refit without adjustment for race Glucose [Mass/Vol] 97 mg/dL 70 - 100 mg/dL [facility] Potassium [Moles/Vol] 3.9 mmol/L 3.5 - 5.1 mmol/L [facility] Protein [Mass/Vol] 8.1 g/dL 6.3 - 8.2 g/dL [facility] Sodium [Moles/Vol] 139 mmol/L 135 - 145 mmol/L [facility] Urea nitrogen [Mass/Vol] 6 mg/dL Low 7 - 17 mg/dL [facility] Hepatic function 2000 panelo n 06-03-2023 Albumin [Mass/Vol] 4.8 g/dL 3.5 - 5.0 g/dL [facility] ALP [Catalytic activity/Vol] 67 U/L 38 - 126 U/L [facility] ALT [Catalytic activity/Vol] 29 U/L 0 - 34 U/L [facility] AST [Catalytic activity/Vol] 34 U/L 15 - 46 U/L [facility] Bilirubin [Mass/Vol] 0.4 mg/dL 0.2 - 1 .3 mg/dL [facility] Bilirubin.conjugated [Mass/Vol] 0.0 mg/dL 0.0 - 0.3 mg/dL [facility] Interpretation and review of laboratory results Normal [facility] Protein [Mass/Vol] 7.8 g/dL 6.3 - 8.2 g/dL [facility] Iron and Iron binding capaci ty panelon 06-03-2023 Iron [Mass/Vol] 33 ug/dL Low 37 - 170 ug/dL [facility] No Panel Informationon 06-03 Interpretation and review of laboratory results Abnormal [facility] Vitamin B12on 06-03-2023 Cobalamin (Vitamin B12) [Mass/Vol] 772 pg/mL 239 - 931 pg/mL [facility] Vitamin D Deficiency Screeni ng (Vit D 25)on 06-03-2023 25-hydroxyvitamin D3 [Mass/Vol] 28 ng/mL Low 30 - 100 ng/mL [facility] XR Chest 2 Viewson No acute cardiopulmonary abnormality identified. Report Dictated on Electronically Signed By: David hO MD Electronically Signed Date/Time: 06/03/2023 4:42 PM [facility] Patient Name: SWETA CHRIS : 1995 Exam Date/Time: 06/03/2023 16:17 Procedure: XR CHEST 2 VIEWS Ordering Provider: SANTILLAN DIANA Reason For Exam: COUGH EXAMINATION: XR chest PA and lateral. EXAM DATE & TIME: 06/03/2023 4:17 PM EST INDICATION: COUGH ADDITIONAL INFORMATION: 27-year-old female with cough presents for evaluation COMPARISON: None TECHNIQUE: Frontal and lateral views of the chest were obtained. FINDINGS: The cardiomediastinal silhouette is within normal limits. No focal consolidation, pleural effusion or pneumothorax. No acute osseous abnormality is demonstrated. [facility] David Oh MD - 06/03/2023 Patient Name: SWETA CHRIS : 1995 Exam Date/Time: 06/03/2023 16:17 Procedure: XR CHEST 2 VIEWS Ordering Provider: SANTILLAN DIANA Reason For Exam: COUGH EXAMINATION: XR chest PA and lateral. EXAM DATE & TIME: 06/03/2023 4:17 PM EST INDICATION: COUGH ADDITIONAL INFORMATION: 27-year-old female with cough presents for evaluation COMPARISON: None TECHNIQUE: Frontal and lateral views of the chest were obtained. FINDINGS: The cardiomediastinal silhouette is within normal limits. No focal consolidation, pleural effusion or pneumothorax. No acute osseous abnormality is demonstrated. IMPRESSION: No acute cardiopulmonary abnormality identified. Report Dictated on Electronically Signed By: David Oh MD Electronically Signed Date/Time: 06/03/2023 4:42 PM EST [facility] Radiology Study observation (narrative) [facility] XR Chest 2 ViewsOrdered By: David Oh on 06-03-2023 [facility] Work Phone: CBC W Auto Differential pane l (Bld)Ordered By: Adilene Strange on 04-06-2022 Basophils (Bld) [#/Vol] 0.0 10*3/uL 0.0 - 0.2 10*3/uL [facility] Basophils/100 WBC (Bld) 0.6 % 0.0 - 2.0 % [facility] Eosinophils (Bld) [#/Vol] 0.1 10*3/uL 0.0 - 0.5 10*3/uL [facility] Eosinophils/100 WBC (Bld) 2.0 % 1.0 - 6.0 % [facility] Erythrocyte distribution width (RBC) [Ratio] 12.2 % 11.5 - 14.5 % [facility] Hematocrit (Bld) [Volume fraction] 40.1 % 35.0 - 47.0 % [facility] Hemoglobin (Bld) [Mass/Vol] 13.3 g/dL 11.7 - 16.0 g/dL [facility] Immature granulocytes (Bld) [#/Vol] 0.0 10*3/uL NINF - 0.0 10*3/uL [facility] Immature granulocytes/100 WBC (Bld) 0.3 % High NINF - 0.0 % [facility] Interpretation and review of laboratory results Abnormal [facility] Lymphocytes (Bld) [#/Vol] 1.6 10*3/uL 1.0 - 4.3 10*3/uL [facility] Lymphocytes/100 WBC (Bld) 25.0 % 20.0 - 40.0 % [facility] MCH (RBC) [Entitic mass] 28.9 pg 26.0 - 34.0 pg [facility] MCHC (RBC) [Mass/Vol] 33.2 % 32.0 - 36.0 % [facility] MCV (RBC) [Entitic vol] 87.2 fL 80.0 - 98.0 fL [facility] Monocytes (Bld) [#/Vol] 0.6 10*3/uL 0.0 - 0.8 10*3/uL [facility] Monocytes/100 WBC (Bld) 8.7 % 2.0 - 10.0 % [facility] Neutrophils (Bld) [#/Vol] 4.0 10*3/uL 1.8 - 7.0 10*3/uL [facility] Neutrophils/100 WBC (Bld) 63.4 % 40.0 - 80.0 % [facility] Platelet mean volume (Bld) [Entitic vol] 10.0 fL 7.4 - 12.4 fL [facility] Comment on above: MPV is a calculated measurement using platelet volume ratio Platelets (Bld) [#/Vol] 290 10*3/uL 140 - 440 10*3/uL [facility] RBC (Bld) [#/Vol] 4.60 10*6/uL 3.8 - 5.20 10*6/uL [facility] WBC (Bld) [#/Vol] 6.4 10*3/uL 3.6 - 10.7 10*3/uL [facility] Hepatic function 2000 panelo n 04-06-2022 Albumin [Mass/Vol] 4.7 g/dL 3.5 - 5.0 g/dL [facility] ALP [Catalytic activity/Vol] 62 U/L 38 - 126 U/L [facility] ALT [Catalytic activity/Vol] 13 U/L 0 - 34 U/L [facility] AST [Catalytic activity/Vol] 26 U/L 15 - 46 U/L [facility] Bilirubin [Mass/Vol] 0.6 mg/dL 0.2 - 1 .3 mg/dL [facility] Bilirubin.conjugated [Mass/Vol] 0.0 mg/dL 0.0 - 0.3 mg/dL [facility] Interpretation and review of laboratory results Normal [facility] Protein [Mass/Vol] 7.8 g/dL 6.3 - 8.2 g/dL [facility] Office Visit (Neuro-General) on 03-14-2022 Follow-up visit Patient Discussion/Summary The patient is stable from a neurological standpoint. The patient should continue her lamotrigine at the current dose. The patient needs to continue folic acid 1 mg a day The patient does need a CBC and liver function test done every 6 months. The patient needs to get at least 8 hours of sleep a night and avoid excessive alcohol intake. It is certainly okay for the patient to drive. I discussed all these issues in detail with the patient and answered all her questions. The patient will follow up with me in one year. 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) Orders Jacksonian epilepsy Continue: lamoTRIgine 150 MG Oral Tablet; TAKE 1 TABLET IN THE MORNING and TAKE 1 AND 1/2 (ONE AND ONE-HALF) TABLETS AT BEDTIME EVERY DAY Seizure Continue: Folic Acid 1 MG Oral Tablet; TAKE 1 TABLET BY MOUTH EVERY DAY Complete Blood Count + Differential; Status:Active; Requested for:14Mar2022; Hepatic Function Panel; Status:Active; Requested for:14Mar2022; SocHx: Occupation Continue: [place] 3 1200 MG Oral Capsule; TAKE DIRECTED Continue: Vitamin B-12 1000 MCG Oral Tablet; Take 1 tablet daily Continue: Vitamin D 50 MCG (2000 UT) Oral Tablet; TAKE ONE TABLET BY MOUTH DAILY Continue: Vitamin K TABS; TAKE 1 TABLET DAILY DIRECTED Chief Complaint Seizures Neurologic Evaluation. Follow up on seizures History of Present Illness The patient states that she is doing well from a neurological standpoint. The patient has had no seizures or new neurological problems. She is compliant with her lamotrigine and folic acid. The patient states that she gets about 8 to 9 hours of sleep at night. She rarely drinks alcohol. In February 2020, the patient had a CBC liver function tests were normal. Her lamotrigine level at that time was 12.9. The patient did have a CBC and liver function test done last year that were normal. Her B12 and vitamin D levels were normal as well. Review of Systems Constitutional: no fever, no unexplained weight gain and no unexplained weight loss. Eyes: no blurred vision and no diplopia. ENT: no hearing loss, no tinnitus, no earache, no sore throat, no hoarseness and no swollen glands in the neck. Cardiovascular: no chest pain, no shortness of breath, no palpitations and no lower extremity edema. Respiratory: no chronic cough, not coughing up sputum and no wheezing that is consistent with asthma. Gastrointestinal: no abdominal pain, no nausea, no vomiting, no diarrhea, no constipation and no bloody stools. Genitourinary: no urinary frequency, no dysuria, no burning sensation during urination and no hematuria. Musculoskeletal: no arthralgias, no joint stiffness, no muscle weakness, no back pain and no difficulty walking. Skin: no skin rashes, no change in skin color and pigmentation, no skin lesions and no skin lumps. Neurological: seizures, but no headaches, no dizziness, no tingling, no numbness and no limb weakness. Psychiatric: no confusion, no memory lapses or loss, no depression and no sleep disturbances. Endocrine: no excessive thirst, no cold intolerance, no heat intolerance, no dry skin and no increased urinary frequency. Hematologic/Lymphatic : is not slow to heal, does not bleed easily, does not bruise easily, no thrombophlebitis and no anemia. All other systems have been reviewed and are negative for complaint. 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) Seizure (780.39) (R56.9) Past Medical History Problems Denied: History of trauma Denied: History of Developmental delay History of Epilepsy (345.90) (G40.909) Denied: History of encephalitis Denied: History of febrile seizure Denied: History of head injury Denied: History of meningitis Denied: History of Premature baby Surgical History Problems History of Cyst excision History of [place] tooth extraction Family History Brother Family history of Duchenne muscle dystrophy (V17.89) (Z82.0) Denied: Family history of seizures Maternal Grandmother Family history of Alzheimer's disease (V17.2) (Z82.0) Family history of cerebrovascular accident (CVA) (V17.1) (Z82.3) Paternal Grandmother Family history of Alzheimer's disease (V17.2) (Z82.0) Social History Problems Lives with parents No alcohol use Non-smoker (V49.89) (Z78.9) Occupation Allergies Medication No Known Drug Allergies Recorded By: Kathya Loera; 07/22/2014 9:08:11 AM Current Meds Medication NameInstruction Folic Acid 1 MG Oral TabletTAKE 1 TABLET BY MOUTH EVERY DAY lamoTRIgine 150 MG Oral TabletTAKE 1 TABLET IN THE MORNING and TAKE 1 AND 1/2 (ONE AND ONE-HALF) TABLETS AT BEDTIME EVERY DAY [place] 3 1200 MG Oral CapsuleTAKE DIRECTED. Vitamin B-12 1000 MCG Oral TabletTake 1 tablet daily Vitamin D 50 MCG (2000 UT) Oral TabletTAKE ONE TABLET BY MOUTH DAILY Vitamin K TABSTAKE 1 TABLET DAILY DIRECTED. Vit (more content not included)... Normal [employer] Tobacco Screening.on 022 Fall risk assessment a) No falls within the last year -Neurology- [place] [address] Work Phone: Tobacco use status CP b) No M -Neurology- [place] [address] Work Phone: CBC Auto DifferentialOrdered By: Rosalina Santillan on 02-27-2021 Absolute Baso # 0.1 10*3/uL 0.0 - 0.2 10*3/uL [facility] Work Phone: Absolute Neut # 3.1 10*3/uL 1.8 - 7.0 10*3/uL [facility] Work Phone: Basophils/100 WBC (Bld) 1.1 % 0.0 - 2.0 % [facility] Work Phone: Eosinophils (Bld) [#/Vol] 0.0 10*3/uL 0.0 - 0.5 10*3/uL [facility] Work Phone: Eosinophils/100 WBC (Bld) 1.0 % 1.0 - 6.0 % [facility] Work Phone: Granulocytes/100 WBC (Bld) 67.7 % 40.0 - 80.0 % [facility] Work Phone: Hematocrit (Bld) [Volume fraction] 39.7 % 35.0 - 47.0 % [facility] Work Phone: Hemoglobin.gastrointest inal spec 1 Ql (Stl) 13.5 g/dL 11.7 - 16.0 g/dL [facility] Work Phone: Lymphocytes (Bld) [#/Vol] 1.0 10*3/uL 1.0 - 4.3 10*3/uL [facility] Work Phone: Lymphocytes/100 WBC (Bld) 22.2 % 20.0 - 40.0 % [facility] Work Phone: MCH (RBC) [Entitic mass] 31.0 pg 26.0 - 34.0 pg [facility] Work Phone: MCHC (RBC) [Mass/Vol] 33.9 % 32.0 - 36.0 % [facility] Work Phone: MCV (RBC) [Entitic vol] 91.5 fL 79.0 - 98.0 fL [facility] Work Phone: Monocytes (Bld) [#/Vol] 0.4 10*3/uL 0.0 - 0.8 10*3/uL [facility] Work Phone: Monocytes/100 WBC (Bld) 8.0 % 2.0 - 10.0 % [facility] Work Phone: Platelet distribution width (Bld) [Ratio] 12.4 % 11.5 - 14.5 % [employer] Work Phone: Platelet mean volume (Bld) [Entitic vol] 8.4 fL 7.4 - 10.4 fL [employer] Work Phone: Platelets (Bld) [#/Vol] 236 10*3/uL 140 - 440 10*3/uL [facility] Work Phone: RBC (Bld) [#/Vol] 4.33 10*6/uL 3.80 - 5.2 0 10*6/uL [employer] Work Phone: WBC (Bld) [#/Vol] 4.6 10*3/uL 3.6 - 10.7 10*3/uL [employer] Work Phone: Test Performed by [employer], [address] [facility]. [address] Work Phone: [employer] Work Phone: Comp Metabolic Panelon 02-27 Calcium [Mass/Vol] 10.1 mg/dL Normal 8.4-10.4 [facility] [employer] Comment on above: Performed By: #### H EMDF, B12, CMP3, TSH5 #### [facility] [address] [place] [address] #### [id number] #### [employer] [address] [place] [address] #### HEPC #### [facility] [address] [place] [id number] ALP [Catalytic activity/Vol] 59 U/L Normal 38-126 [facility] [employer] Comment on above: Performed By: #### H EMDF, B12, CMP3, TSH5 #### [employer] [address] [place] [address] #### VD25H #### [facility] [address] [place] [address] #### HEPC #### [facility] [address] [place] [phone] ALT [Catalytic activity/Vol] 9 U/L Normal 0-34 [facility] Comment on above: Result Comment: The ALT test is performed by an updated assay method. Please note that the reference intervals have been changed and are now sex specific. Performed By: #### H EMDF, B12, CMP3, TSH5 #### [facility] [address] [place] [address] #### [id number] #### [facility] [address] [place] [address] #### HEPC #### [address] [phone] Anion gap [Moles/Vol] 8 mmol/L Normal 3-13 [facility] Comment on above: Performed By: #### H EMDF, B12, CMP3, TSH5 #### [facility] [address] [place] [address] #### [id number] #### [place] [address] [place] [address] #### HEPC #### [address] [address] AST [Catalytic activity/Vol] 21 U/L Normal 15-46 [facility] Comment on above: Performed By: #### H EMDF, B12, CMP3, TSH5 #### [facility] [address] [place] [address] #### [id number] #### [place] [address] [place] [address] #### HEPC #### [address] [address] Bilirubin [Mass/Vol] 0.6 mg/dL Normal 0.2-1.3 [facility] Comment on above: Performed By: #### H EMDF, B12, CMP3, TSH5 #### [facility] [address] [place] [address] #### VD25H #### [place] [address] [place] [address] #### HEPC #### [address] [place] [address] CO2 [Moles/Vol] 27 mmol/L Normal 22-30 [facility] Comment on above: Performed By: #### H EMDF, B12, CMP3, TSH5 #### [facility] [address] [place] [address] #### VD25H #### [address] [place] [address] #### HEPC #### [address] [address] Creatinine [Mass/Vol] 0.71 mg/dL Normal 0.52-1.25 [facility] Comment on above: Performed By: #### H EMDF, B12, CMP3, TSH5 #### [facility] [address] [place] [address] #### VD25H #### [address] [address] #### HEPC #### [address] [address] eGFR OTHER > 90.0 Normal >60 [facility] Comment on above: Result Comment: KDIG O guidelines provide the following GFR categories: Stage GFR(ml/min/1.73 m2) Terms G1 >=90 Normal or high G2 60-89 Mildly decreased* G3a 45-59 Mildly to moderately decreased G3b 30-44 Moderately to severely decreased G4 15-29 Severely decreased G5 <15 Kidney failure *Relative to young adult level. In the absence of evidence of kidney damage, neither GFR category G1 nor G2 fulfill the criteria for CKD. The CKD-EPI equation is validated in individuals 18 years of age and older. Currently the best equation for estimating glomerular filtration rate (GFR) from serum creatinine in children is the Bedside Francisco equation. It is less accurate in patients with extremes of muscle mass, restriction of dietary protein, ingestion of creatine, extra-renal metabolism of creatinine, or treatment with medications that affect renal tubular creatinine secretion. Performed By: #### H EMDF, B12, CMP3, TSH5 #### [facility] [address] [place] [address] #### VD25H #### [address] [place] [address] #### HEPC #### [address] [address] GFR/1.73 sq M.predicted among blacks MDRD (S/P/Bld) [Vol rate/Area] mL/min/{1.73_m2} Normal >60 [facility] Comment on above: Performed By: #### H EMDF, B12, CMP3, TSH5 #### [facility] [address] [place] [address] #### VD25H #### [place] [address] [place] [address] #### HEPC #### [address] [address] Glucose [Mass/Vol] 84 mg/dL Normal 70-100 [facility] Comment on above: Performed By: #### H EMDF, B12, CMP3, TSH5 #### [facility] [address] [place] [address] #### VD25H #### [address] [place] [address] #### HEPC #### [address] [address] Protein [Mass/Vol] 7.6 g/dL Normal 6.3-8.2 [facility] Comment on above: Performed By: #### H EMDF, B12, CMP3, TSH5 #### [facility] [address] [place] [address] #### VD25H #### [facility] [address] [place] [address] #### HEPC #### [address] [address] Urea nitrogen [Mass/Vol] 6 mg/dL Low 9-20 [facility] Comment on above: Performed By: #### H EMDF, B12, CMP3, TSH5 #### [facility] [address] [place] [address] #### VD25H #### [place] [address] [place] [address] #### HEPC #### [address] [address] Albumin [Mass/Vol] 4.6 g/dL Normal 3.5-5.0 [facility] Comment on above: Performed By: #### H EMDF, B12, CMP3, TSH5 #### [facility] [address] [place] [address] #### VD25H #### [facility] [address] [place] [address] #### HEPC #### [address] [address] Chloride [Moles/Vol] 105 mmol/L Normal 98-107 [facility] Comment on above: Performed By: #### H EMDF, B12, CMP3, TSH5 #### [facility] [address] [place] [address] #### VD25H #### [place] [address] [place] [address] #### HEPC #### [address] [address] Potassium [Moles/Vol] 4.7 mmol/L Normal 3.5-5.1 [facility] Comment on above: Performed By: #### H EMDF, B12, CMP3, TSH5 #### [facility] [address] [place] [address] #### VD25H #### [place] [address] [place] [address] #### HEPC #### [address] [address] Sodium [Moles/Vol] 140 mmol/L Normal 135-145 [facility] Comment on above: Performed By: #### H EMDF, B12, CMP3, TSH5 #### [facility] [address] [place] [address] #### VD25H #### [place] [address] [place] [address] #### HEPC #### [facility] [address] [place] [phone] Comprehensive Metabolic Pane lOrdered By: Rosalina Santillan on 02-27-2021 Albumin [Mass/Vol] 4.6 g/dL 3.5 - 5.0 g/dL [employer] Work Phone: ALP (Bld) [Catalytic activity/Vol] 59 U/L 38 - 126 U/L [employer] Work Phone: ALT [Catalytic activity/Vol] 9 U/L 0 - 34 U/L [employer] Work Phone: Comment on above: The ALT test is perf ormed by an updated assay method. Please note that the reference intervals have been changed and are now sex specific. Anion gap [Moles/Vol] 8 mmol/L 3 - 13 mmol/L [employer] Work Phone: AST [Catalytic activity/Vol] 21 U/L 15 - 46 U/L [employer] Work Phone: Bilirubin [Mass/Vol] 0.6 mg/dL 0.2 - 1 .3 mg/dL [employer] Work Phone: Calcium [Mass/Vol] 10.1 mg/dL 8.4 - 10. 4 mg/dL [employer] Work Phone: Chloride [Moles/Vol] 105 mmol/L 98 - 10 7 mmol/L [employer] Work Phone: CO2 [Moles/Vol] 27 mmol/L 22 - 30 mmol/L [employer] Work Phone: Creatinine [Mass/Vol] 0.71 mg/dL 0.52 - 1.25 mg/dL [employer] Work Phone: EGFR IF NonAfrican Citizen Of [place] >90.0 >60 mL/min [employer] Work Phone: Comment on above: KDIGO guidelines pro vide the following GFR categories: Stage GFR(ml/min/1.73 m2) Terms G1 >=90 Normal or high G2 60-89 Mildly decreased* G3a 45-59 Mildly to moderately decreased G3b 30-44 Moderately to severely decreased G4 15-29 Severely decreased G5 <15 Kidney failure *Relative to young adult level. In the absence of evidence of kidney damage, neither GFR category G1 nor G2 fulfill the criteria for CKD. The CKD-EPI equation is validated in individuals 18 years of age and older. Currently the best equation for estimating glomerular filtration rate (GFR) from serum creatinine in children is the Bedside Francisco equation. It is less accurate in patients with extremes of muscle mass, restriction of dietary protein, ingestion of creatine, extra-renal metabolism of creatinine, or treatment with medications that affect renal tubular creatinine secretion. Free PSA/Total PSA [Mass fraction] 7.6 g/dL 6.3 - 8.2 g/dL [employer] Work Phone: GFR/1.73 sq M.predicted among blacks MDRD (S/P/Bld) [Vol rate/Area] mL/min/{1.73_m2} >60 mL/min [employer] Work Phone: Glucose [Mass/Vol] 84 mg/dL 70 - 100 mg/dL [employer] Work Phone: Interpretation and review of laboratory results Abnormal [employer] Work Phone: Potassium [Moles/Vol] 4.7 mmol/L 3.5 - 5.1 mmol/L [employer] Work Phone: Sodium [Moles/Vol] 140 mmol/L 135 - 145 mmol/L [employer] Work Phone: Urea nitrogen (BldV) [Mass/Vol] 6 mg/dL Low 9 - 20 mg/dL [employer] Phone: Test Performed by [employer], [address] [place] [address] [employer] Work Phone: [employer] Phone: Hemogram w/ [employer] 02-27 Abs Baso Cnt 0.1 10*3/uL Normal 0.0-0.2 [employer] Comment on above: Performed By: #### H EMDF, B12, CMP3, TSH5 #### [employer] [address] [place] [address] #### VD25H #### [facility] [address] [place] [address] #### HEPC #### [facility] [address] [place] [address] Abs Neutrophile Cnt 3.1 10*3/uL Normal 1.8-7.0 [facility] Comment on above: Performed By: #### H EMDF, B12, CMP3, TSH5 #### [facility] [address] [facility] [place] [address] #### VD25H #### [facility] [address] [place] [address] #### HEPC #### [address] [address] Basophils/100 WBC (Bld) 1.1 % Normal 0.0-2.0 [facility] Comment on above: Performed By: #### H EMDF, B12, CMP3, TSH5 #### [facility] [address] [place] [address] #### VD25H #### [place] [address] [place] [address] #### HEPC #### [address] [address] Eosinophils (Bld) [#/Vol] 0.0 10*3/uL Normal 0.0-0.5 [facility] Comment on above: Performed By: #### H EMDF, B12, CMP3, TSH5 #### [facility] [address] [place] [address] #### VD25H #### [place] [address] [place] [address] #### HEPC #### [address] [address] Eosinophils/100 WBC (Bld) 1.0 % Normal 1.0-6.0 [facility] Comment on above: Performed By: #### H EMDF, B12, CMP3, TSH5 #### [facility] [address] [place] [address] #### VD25H #### [facility] [address] [place] [address] #### HEPC #### [address] [address] Erythrocyte distribution width (RBC) [Ratio] 12.4 % Normal 11.5-14.5 [facility] Comment on above: Performed By: #### H EMDF, B12, CMP3, TSH5 #### [facility] [address] [place] [address] #### VD25H #### [facility] [address] [place] [address] #### HEPC #### [address] [address] Granulocytes/100 WBC (Bld) 67.7 % Normal 40.0-80.0 [facility] Comment on above: Performed By: #### H EMDF, B12, CMP3, TSH5 #### [facility] [address] [place] [address] #### VD25H #### [place] [address] [place] [address] #### HEPC #### [address] [address] Hematocrit (Bld) [Volume fraction] 39.7 % Normal 35.0-47.0 [facility] Comment on above: Performed By: #### H EMDF, B12, CMP3, TSH5 #### [facility] [address] [place] [address] #### VD25H #### [place] [address] [place] [address] #### HEPC #### [address] [address] Hemoglobin (Bld) [Mass/Vol] 13.5 g/dL Normal 11.7-16.0 [facility] Comment on above: Performed By: #### H EMDF, B12, CMP3, TSH5 #### [facility] [address] [place] [address] #### VD25H #### [place] [address] [facility] [address] #### HEPC #### [address] [address] Lymphocytes (Bld) [#/Vol] 1.0 10*3/uL Normal 1.0-4.3 [facility] Comment on above: Performed By: #### H EMDF, B12, CMP3, TSH5 #### [facility] [address] [place] [address] #### VD25H #### [facility] [address] [facility] [place] [address] #### HEPC #### [address] Lymphocytes/100 WBC (Bld) 22.2 % Normal 20.0-40.0 [facility] Comment on above: Performed By: #### H EMDF, B12, CMP3, TSH5 #### [facility] [address] [place] [address] #### VD25H #### [facility] [address] [place] [address] #### HEPC #### [address] [address] MCH (RBC) [Entitic mass] 31.0 pg Normal 26.0-34.0 [facility] Comment on above: Performed By: #### H EMDF, B12, CMP3, TSH5 #### [facility] [address] [place] [address] #### VD25H #### [facility] [address] [place] [address] #### HEPC #### [address] [address] MCHC 33.9 % Normal 32.0-36.0 [facility] Comment on above: Performed By: #### H EMDF, B12, CMP3, TSH5 #### [facility] [address] [place] [address] #### VD25H #### [facility] [address] [place] [address] #### HEPC #### [address] [address] MCV (RBC) [Entitic vol] 91.5 fL Normal 79.0-98.0 [facility] Comment on above: Performed By: #### H EMDF, B12, CMP3, TSH5 #### [facility] [address] [place] [address] #### VD25H #### [facility] [address] [place] [address] #### HEPC #### [address] [address] Monocytes (Bld) [#/Vol] 0.4 10*3/uL Normal 0.0-0.8 [facility] Comment on above: Performed By: #### H EMDF, B12, CMP3, TSH5 #### [facility] [address] [place] [address] #### VD25H #### [address] [place] [address] #### HEPC #### [address] [address] Monocytes/100 WBC (Bld) 8.0 % Normal 2.0-10.0 [facility] Comment on above: Performed By: #### H EMDF, B12, CMP3, TSH5 #### [facility] [address] [place] [address] #### VD25H #### [address] [place] [address] #### HEPC #### [address] [address] Platelet mean volume (Bld) [Entitic vol] 8.4 fL Normal 7.4-10.4 [facility] Comment on above: Performed By: #### H EMDF, B12, CMP3, TSH5 #### [facility] [address] [place] [address] #### VD25H #### [address] [place] [address] #### HEPC #### [address] [address] Platelets (Bld) [#/Vol] 236 10*3/uL Normal 140-440 [facility] Comment on above: Performed By: #### H EMDF, B12, CMP3, TSH5 #### [facility] [address] [place] [address] #### VD25H #### [facility] [address] [place] [address] #### HEPC #### [address] [phone] RBC (Bld) [#/Vol] 4.33 10*6/uL Normal 3.80-5.20 [facility] Comment on above: Performed By: #### H EMDF, B12, CMP3, TSH5 #### [address] [address] #### VD25H #### [address] [place] [address] #### HEPC #### [address] [address] WBC (Bld) [#/Vol] 4.6 10*3/uL Normal 3.6-10.7 [facility] Comment on above: Performed By: #### H EMDF, B12, CMP3, TSH5 #### [facility] [address] [place] [address] #### [id number] #### [address] [place] [address] #### HEPC #### [address] [phone] Hep C Antibodyon 02-27-2021 Hep C Antibody Not detected Normal Not Detected [facility] Comment on above: Result Comment: Patients with DETECTED Hepatitis C Ab results should have a new specimen submitted for supplemental testing with a Hepatitis C Quantitative RNA assay (viral load), if clinically indicated. Performed By: #### H EMDF, B12, CMP3, TSH5 #### [facility] [address] [place] [address] #### [id number] #### [employer] [address] [place] [address] #### HEPC #### [employer] [address] [place] [phone] Hepatitis C AntibodyOrdered By: Rosalina Santillan on 02-27-2021 Hepatitis C Ab Not detected Not Detected NA [employer] Work Phone: Comment on above: Patients with DETECTED Hepatitis C Ab results should have a new specimen submitted for supplemental testing with a Hepatitis C Quantitative RNA assay (viral load), if clinically indicated. Test Performed by [employer], [address] [place] [id number] [employer] Work Phone: [employer] Work Phone: TSH without ReflexOrdered By : Rosalina Santillan on 02-27-2021 TSH Qn 2.849 u[IU]/mL 0.465 - 4.680 u[IU]/mL [employer] Work Phone: Test Performed by [employer], [address] [place] [address]. , [place] [address] [employer] Work Phone: [employer] Work Phone: Thyroid Stim. Hormoneon Thyroid Stim. Hormone 2.849 u[IU]/mL Normal 0.465-4.68 0 [employer] Comment on above: Performed By: #### H EMDF, B12, CMP3, TSH5 #### [employer] [address] [place] [address] #### [id number] #### [employer] [address] [place] [address] #### HEPC #### [employer] [address] [place] [phone] Vit D 25-OH, Totalon 021 Vit D 25-OH, Total 61 ng/mL Normal 30-100 [employer] Comment on above: Result Comment: Ther apy is based on measurement of Total 25-OHD with the following classification levels: Less than 20 ng/mL: Indicative of Vit D deficiency 20-30 ng/mL: Suggests Vit D insufficiency Optimal: Greater than or equal to 30 ng/mL Test performed by [employer] Immuno[employer], measuring Total Vitamin D, not individual fractions. Performed By: #### H EMDF, B12, CMP3, TSH5 #### [facility] [address] [place] [address] #### [id number] #### [employer] [facility] [address] [place] [address] #### HEPC #### [facility] [address] [place] [address] Vitamin B12on 02-27-2021 Cobalamin (Vitamin B12) [Mass/Vol] 998 pg/mL High 239-931 [facility] [employer] Comment on above: Performed By: #### H EMDF, B12, CMP3, TSH5 #### [facility] [address] [place] [address] #### [id number] #### [employer] [facility] [address] [place] [address] #### HEPC #### [employer] [address] [place] [phone] Vitamin H38Czzsbul By: Rosalina Santillan on 02-27-2021 Cobalamin (Vitamin B12) [Mass/Vol] 998 pg/mL High 239 - 931 pg/mL [employer] Work Phone: Interpretation and review of laboratory results Abnormal [employer] Work Phone: Test Performed by [employer], [address] [place], [place] [address] [employer] Work Phone: [employer] Work Phone: Vitamin D 25 HydroxyOrdered By: Rosalina Santillan on 02-27-2021 Vit D, 25-Hydroxy 61 ng/mL 30 - 100 ng/mL [employer] Work Phone: Comment on above: Therapy is based on measurement of Total 25-OHD with the following classification levels: Less than 20 ng/mL: Indicative of Vit D deficiency 20-30 ng/mL: Suggests Vit D insufficiency Optimal: Greater than or equal to 30 ng/mL Test performed by [employer] Immuno[employer], measuring Total Vitamin D, not individual fractions. Test Performed by [employer], [address] [place] [address] [employer] Work Phone: [employer] Work Phone: Vital Signs Date Time Vital Sign Value Performing Clinician Facility 11-25-2024 09:24-0400 Diastolic blood pressure 88 mm[Hg] Rosalina Santillan MD Work Phone: [facility] 11-25-2024 09:24-0400 Systolic blood pressure 138 mm[Hg] Rosalina Santillan MD Work Phone: [facility] 11-25-2024 08:52-0400 Body height 179.1 cm Rosalina Santillan MD Work Phone: [facility] 11-25-2024 08:52-0400 Body mass index (BMI) [Ratio] 29.99 kg/m2 Rosalina Santillan MD Work Phone: [employer] [facility] 11-25-2024 08:52-0400 Body temperature 98.2 [degF] Rosalina Santillan MD Work Phone: [facility] 11-25-2024 08:52-0400 Body weight 96.16 kg Rosalina Santillan MD Work Phone: [facility] 11-25-2024 08:52-0400 Heart rate 95 /min Roslaina Santillan MD Work Phone: [facility] 10-12-2024 17:32-0400 Body height 180.3 cm Libertad Lopez MD Work Phone: [facility] 10-12-2024 17:32-0400 Body mass index (BMI) [Ratio] 29.99 kg/m2 Libertad Lopez MD Work Phone: [facility] 10-12-2024 17:32-0400 Body temperature 98.29 [degF] Libertad Lopez MD Work Phone: [facility] 10-12-2024 17:32-0400 Body weight 97.52 kg Libertad Lopez MD Work Phone: [facility] 10-12-2024 17:32-0400 Diastolic blood pressure 93 mm[Hg] Libertad Lopez MD Work Phone: [facility] 10-12-2024 17:32-0400 Heart rate 89 /min Libertad Lopez MD Work Phone: [facility] 10-12-2024 17:32-0400 Respiratory rate 16 /min Libertad Lopez MD Work Phone: [facility] 10-12-2024 17:32-0400 SaO2% (BldA) [Mass fraction] 98 % Libertad Lopez MD Work Phone: [facility] 10-12-2024 17:32-0400 Systolic blood pressure 154 mm[Hg] Libertad Lopez MD Work Phone: [facility] 02-12-2024 12:25-0400 Diastolic blood pressure 80 mm[Hg] Cate Zapata APRN - FILM LABORATORY TECHNICIAN Work Phone: [facility] 02-12-2024 12:25-0400 Systolic blood pressure 142 mm[Hg] Cate Zapata APRN - FILM LABORATORY TECHNICIAN Work Phone: [facility] 02-12-2024 12:02-0400 Body height 179.6 cm Cate Zapata APRN - FILM LABORATORY TECHNICIAN Work Phone: [facility] 02-12-2024 12:02-0400 Body mass index (BMI) [Ratio] 27.43 kg/m2 Cate Zapata APRN - FILM LABORATORY TECHNICIAN Work Phone: [facility] 02-12-2024 12:02-0400 Body temperature 98.2 [degF] Cate Zapata APRN - FILM LABORATORY TECHNICIAN Work Phone: [facility] 02-12-2024 12:02-0400 Body weight 88.45 kg Cate Zapata CHAIN SAW MECHANIC - FILM LABORATORY TECHNICIAN Work Phone: [facility] 02-12-2024 12:02-0400 Heart rate 90 /min Cate Zapata CHAIN SAW MECHANIC - FILM LABORATORY TECHNICIAN Work Phone: [facility] 02-12-2024 12:02-0400 SaO2% (BldA) [Mass fraction] 97 % Cate Zapata CHAIN SAW MECHANIC - FILM LABORATORY TECHNICIAN Work Phone: [facility] 02-02-2024 09:22-0400 Body height 180.3 cm Hans Simmons MD Work Phone: [facility] 02-02-2024 09:22-0400 Body mass index (BMI) [Ratio] 27.42 kg/m2 Hans Simmons MD Work Phone: [facility] 02-02-2024 09:22-0400 Body temperature 97.5 [degF] Hans Simmons MD Work Phone: [facility] 02-02-2024 09:22-0400 Body weight 89.18 kg Hans Simmons MD Work Phone: [facility] 02-02-2024 09:22-0400 Diastolic blood pressure 90 mm[Hg] Hans Simmons MD Work Phone: [facility] 02-02-2024 09:22-0400 Heart rate 98 /min Hans Simmons MD Work Phone: [facility] 02-02-2024 09:22-0400 Respiratory rate 16 /min Hans Simmons MD Work Phone: [facility] 02-02-2024 09:22-0400 Systolic blood pressure 142 mm[Hg] Hans Simmons MD Work Phone: [facility] 10-24-2023 08:22-0400 Body height 179.6 cm Rosalina Santillan MD Work Phone: [facility] 10-24-2023 08:22-0400 Body mass index (BMI) [Ratio] 28.55 kg/m2 Rosalina Santillan MD Work Phone: [facility] 10-24-2023 08:22-0400 Body temperature 98.01 [degF] Rosalina Santillan MD Work Phone: [facility] 10-24-2023 08:22-0400 Body weight 92.08 kg Rosalina Santillan MD Work Phone: [facility] 10-24-2023 08:22-0400 Diastolic blood pressure 72 mm[Hg] Rosalina Santillan MD Work Phone: [facility] 10-24-2023 08:22-0400 Heart rate 90 /min Rosalina Santillan MD Work Phone: [facility] 10-24-2023 08:22-0400 SaO2% (BldA) [Mass fraction] 97 % Rosalina Santillan MD Work Phone: [facility] 10-24-2023 08:22-0400 Systolic blood pressure 108 mm[Hg] Rosalina Santillan MD Work Phone: [facility] 06-26-2023 18:07-0500 Body temperature 98.6 [degF] Gerard Slabaugh PA-C Work Phone: [facility] 06-26-2023 18:07-0500 Body weight 92.7 kg Gerard Slabaugh PA-C Work Phone: [facility] 06-26-2023 18:07-0500 Diastolic blood pressure 84 mm[Hg] Gerard Slabaugh PA-C Work Phone: [facility] 06-26-2023 18:07-0500 Heart rate 84 /min Gerard Slabaugh PA-C Work Phone: [facility] 06-26-2023 18:07-0500 Respiratory rate 18 /min Gerard Slabaugh PA-C Work Phone: [facility] 06-26-2023 18:07-0500 SaO2% (BldA) [Mass fraction] 99 % Gerard Harper PA-C Work Phone: [facility] 06-26-2023 18:07-0500 Systolic blood pressure 117 mm[Hg] Gerard Harper PA-C Work Phone: [facility] 06-03-2023 14:59-0500 Body height 179.6 cm Rosalina Santillan MD Work Phone: [facility] 06-03-2023 14:59-0500 Body mass index (BMI) [Ratio] 28.55 kg/m2 Rosalina Santillan MD Work Phone: [facility] 06-03-2023 14:59-0500 Body temperature 98.4 [degF] Rosalina Santillan MD Work Phone: [employer] [facility] 06-03-2023 14:59-0500 Body weight 92.08 kg Rosalina Santillan MD Work Phone: [employer] [facility] 06-03-2023 14:59-0500 Diastolic blood pressure 76 mm[Hg] Rosalina Santillan MD Work Phone: [employer] [facility] 06-03-2023 14:59-0500 Heart rate 93 /min Rosalina Santillan MD Work Phone: [employer] [facility] 06-03-2023 14:59-0500 SaO2% (BldA) [Mass fraction] 99 % Rosalina Santillan MD Work Phone: [employer] [facility] 06-03-2023 14:59-0500 Systolic blood pressure 146 mm[Hg] Rosalina Santillan MD Work Phone: [facility] 04-03-2023 07:56-0500 Body height 180.3 cm Hans Simmons MD Work Phone: [facility] 04-03-2023 07:56-0500 Body mass index (BMI) [Ratio] 27.98 kg/m2 Hans Simmons MD Work Phone: [facility] 04-03-2023 07:56-0500 Body temperature 98.1 [degF] Hans Simmons MD Work Phone: [facility] 04-03-2023 07:56-0500 Body weight 90.99 kg Hans Simmons MD Work Phone: [facility] 04-03-2023 07:56-0500 Diastolic blood pressure 74 mm[Hg] Hans Simmons MD Work Phone: [facility] 04-03-2023 07:56-0500 Heart rate 92 /min Hans Simmons MD Work Phone: [facility] 04-03-2023 07:56-0500 Respiratory rate 18 /min Hans Simmons MD Work Phone: [facility] 04-03-2023 07:56-0500 Systolic blood pressure 118 mm[Hg] Hans Simmons MD Work Phone: [facility] 03-14-2022 08:22-0400 Body height 180.34 cm Rosalina Santillan Work Phone: VN-Gpobrsjwz-Gzvtm 204 Work Phone: 03-14-2022 08:22-0400 Body mass index (BMI) [Ratio] 25.44 kg/m2 Rosalina Santillan Work Phone: ON-Txyemmold-Kmeqh 204 Work Phone: 03-14-2022 08:22-0400 Body surface area Derived from formula 2.03 m2 Rosalina Santillan Work Phone: XS-Hosnaogwe-Oopzc 204 Work Phone: 03-14-2022 08:22-0400 Body temperature 97 [degF] Rosalina Santillan Work Phone: OX-Bhizqjqhf-Tgzxz 204 Work Phone: 03-14-2022 08:22-0400 Body weight 82.73 kg Rosalina Bartholomewmellisacolinski Work Phone: LU-Bjkqmqokd-Kadwz 204 Work Phone: 03-14-2022 08:22-0400 Diastolic blood pressure 78 mm[Hg] Rosalina Bartholomewmellisaevski Work Phone: WF-Qeryyetgd-Wgqis 204 Work Phone: 03-14-2022 08:22-0400 Heart rate 86 /min Rosalina Lismellisaevski Work Phone: WZ-Hhsxppspt-Jjgpa 204 Work Phone: 03-14-2022 08:22-0400 Respiratory rate 16 /min Rosalina Bartholomewmellisaevski Work Phone: WA-Qtvbfmmgf-Ktkzg 204 Work Phone: 03-14-2022 08:22-0400 SaO2% (BldA) [Mass fraction] 99 % Rosalinafabio Bartholomewrobertski Work Phone: DI-Bswbmjjgo-Tqdtc 204 Work Phone: 03-14-2022 08:22-0400 Systolic blood pressure 124 mm[Hg] Rosalina Santillan Work Phone: YU-Hjcvtccth-Lwnok 204 Work Phone: Encounters Encounter Date Encounter Type Care Provider Facility Start: 12-18-2024 End: 12-20-2024 Refill Rosalina Santillan MD Work Phone: [facility] Start: 11-25-2024 End: 11-25-2024 Office outpatient visit 15 minutes Rosalina Santillan MD Work Phone: [facility] Comment on above: Chronic fatigue and malaise (Primary Dx); Seizures (HCC); Hair loss; Blood pressure alteration Start: 11-25-2024 End: 11-25-2024 [facility] Start: 11-23-2024 ambulatory Health Risk Assessment Facility:[facility] Start: 10-12-2024 End: 10-12-2024 Office outpatient new 30 minutes Libertad Lopez MD Work Phone: [facility] Comment on above: Theresa vaginitis (P rimary Dx) Start: 09-25-2024 End: 12-25-2024 ambulatory [facility] Comment on above: Unspecified convulsi ons (HCC) (Primary Dx) Start: 03-14-2024 End: 03-15-2024 Refill Rosalina Santillan MD Work Phone: [facility] Start: 02-12-2024 End: 02-12-2024 Office outpatient visit 15 minutes Cate Zapata APRN - FILM LABORATORY TECHNICIAN Work Phone: [facility] Comment on above: Acute non intractabl e tension-type headache (Primary Dx) Start: 02-12-2024 End: 02-12-2024 ambulatory CATE JODI [facility] Start: 02-02-2024 End: 02-02-2024 Office outpatient visit 25 minutes Hans Simmons MD Work Phone: [facility] Comment on above: Seizure (Multi) (Madie sonny Dx); Jacksonian epilepsy (Multi) Start: 02-02-2024 End: 02-02-2024 ambulatory [facility] Start: 10-24-2023 End: 10-24-2023 Office outpatient visit 25 minutes Rosalina Santillan MD Work Phone: [facility] Comment on above: Chronic fatigue and malaise (Primary Dx); Screening, lipid; Vitamin D deficiency; Iron deficiency; Abdominal discomfort; Family history of colon cancer Start: 10-09-2023 Refill Rosalina france MD Work Phone: [facility] Start: 08-15-2023 End: 08-15-2023 Subsequent hospital visit by physician Rosalina Santillan MD Work Phone: [facility] US Comment on above: Abdominal discomfort ; Irregular periods Start: 06-26-2023 End: 06-26-2023 ambulatory GERARD HARPER Facility:[facility] Start: 06-26-2023 End: 06-26-2023 Patient encounter procedure Gerard Harper PA-C Work Phone: [facility] Comment on above: Acute bacterial conj unctivitis of right eye (Primary Dx) Start: 06-03-2023 End: 06-03-2023 Office outpatient visit 25 minutes Rosalina Santillan MD Work Phone: [facility] Comment on above: Seizures (HCC) (Prim rosalba Dx); Chronic fatigue and malaise; Hair loss; Cough in adult; Abdominal discomfort; Irregular periods Start: 06-03-2023 End: 06-03-2023 Subsequent hospital visit by physician Rosalina Santillan MD Work Phone: [facility] Radiology Comment on above: Cough in adult Localization-related (focal) (partial) symptomatic epilepsy and epileptic syndromes with simple partial seizures, not intractable, without status epilepticus (HCC) (Primary Dx) Start: 04-03-2023 End: 04-03-2023 Office outpatient visit 25 minutes Hans Simmons MD Work Phone: [facility] Comment on above: Jacksonian epilepsy (CMS/HCC) (Primary Dx) Start: 04-03-2023 End: 04-03-2023 ambulatory [facility] Start: 01-07-2023 Rx Renewal Rosalina france Work Phone: [facility] 109 Work Phone: Start: 04-06-2022 Transcribe Orders Hans shore Work Phone: [facility] Laboratory Comment on above: Unspecified convulsi ons (HCC) (Primary Dx) Start: 03-14-2022 [facility]ulatory [id number] Start: 03-14-2022 Office outpatient vi sit 15 minutes Rosalina Santillan Work Phone: [facility]Cgdxcfnkp-Clivn 204 Work Phone: Start: 03-04-2022 AUDIT Rosalina france Work Phone: VD-Trofumxkn-Wypcl 204 Work Phone: Start: 01-09-2022 Rx Renewal Rosalina Mikki france Work Phone: WU-Kfgeshnhv-Xpbil 204 Work Phone: Start: 04-23-2021 End: 04-23-2021 Subsequent hospital visit by physician Rosalina Santillan MD Work Phone: [facility] [place] [facility] Start: 04-11-2021 End: 04-11-2021 Subsequent hospital visit by physician [facility] Start: 03-26-2021 End: 03-26-2021 Subsequent hospital visit by physician [facility]alina [facility] MD [facility] Start: 02-27-2021 End: 02-27-2021 Subsequent hospital visit by physician Rosalina Santillan MD Work Phone: [facility] Laboratory Comment on above: Seizures (HCC); Hair loss Start: 02-02-2018 Patient encounter procedure [facility] Work Phone: Start: 03-19-2017 Patient encounter procedure [facility] Work Phone: Procedures Date Procedure Procedure Detail Performing Clinician Start: 11-25-2024 Adult depression scr eening assessment Rosalina Santillan MD Work Phone: Start: 08-15-2023 Us pelvic nonobstetr ic real-time image complete Rosalina Santillan MD Work Phone: Start: 06-03-2023 Radiologic exam ches t 2 views Rosalina Santillan MD Work Phone: Start: 04-06-2022 Blood count complete auto&auto difrntl wbc Hans Simmons Work Phone: Start: 04-06-2022 Hepatic function panel Hans Simmons Work Phone: Start: 02-27-2021 Comprehensive metabo lic panel Rosalina Santillan MD Work Phone: Start: 02-27-2021 Hepatitis c antibody Rachele Santillan MD Work Phone: Excision of cyst Rosalina white Work Phone: Extraction of wisdom tooth D bruna Santillan Work Phone: Plan of Treatment Date Care Activity Detail Author Start: 11-15-2070 RSV Immunization for Adults (1 - 1-dose 75+ series) RSV Immunization for Adults (1 - 1-dose 75+ series) [facility] Start: 2055 RSV Immunization age d 60 or older (1 - 1-dose 60+ series) RSV Immunization aged 60 or older (1 - 1-dose 60+ series) [facility] Start: 11-15-2045 Zoster Vaccines (1 of 2) Zoste r Vaccines (1 of 2) [facility] Start: 11-25-2025 Depression Screening Depression Scre ening [facility] Start: 01-24-2025 Influenza vaccination U [facility] Start: 11-25-2024 End: 11-25-2025 25-hydroxyvitamin D3 [Mass/volume] in Serum or Plasma Vitamin D Deficiency Screening (Vit D 25) Lab Routine Hair loss Expected: 11/25/2024 (Approximate), Expires: 11/25/2025 [facility] Comment on above: Expected: 11/25/2024 (Approximate), Expires: 11/25/2025 Start: 11-25-2024 End: 11-25-2025 CBC W Auto Differential panel - Blood CBC auto differential Lab Routine Chronic fatigue and malaise Seizures (HCC) Expected: 11/25/2024 (Approximate), Expires: 11/25/2025 [facility] Work Phone: Comment on above: Expected: 11/25/2024 (Approximate), Expires: 11/25/2025 Start: 11-25-2024 End: 11-25-2025 Comprehensive metabolic 1998 panel - Serum or Plasma Comprehensive metabolic panel Lab Routine Chronic fatigue and malaise Seizures (HCC) Expected: 11/25/2024 (Approximate), Expires: 11/25/2025 [facility] Comment on above: Expected: 11/25/2024 (Approximate), Expires: 11/25/2025 Start: 11-25-2024 End: 11-25-2025 Iron and Iron binding capacity panel - Serum or Plasma Iron level Lab Routine Chronic fatigue and malaise Seizures (HCC) Expected: 11/25/2024 (Approximate), Expires: 11/25/2025 [facility] Comment on above: Expected: 11/25/2024 (Approximate), Expires: 11/25/2025 Start: 11-25-2024 End: 11-25-2025 Lipid 1996 panel - Serum or Plasma Lipid panel Lab Routine Chronic fatigue and malaise Seizures (HCC) Expected: 11/25/2024 (Approximate), Expires: 11/25/2025 [facility] Comment on above: Expected: 11/25/2024 (Approximate), Expires: 11/25/2025 Start: 11-25-2024 End: 11-25-2025 Thyrotropin [Units/volume] in Serum or Plasma TSH Lab Routine Hair loss Expected: 11/25/2024 (Approximate), Expires: 11/25/2025 [facility] Comment on above: Expected: 11/25/2024 (Approximate), Expires: 11/25/2025 Start: 04-30-2024 End: 04-30-2024 Patient encounter procedure [facility] Start: 04-01-2024 End: 04-01-2024 Patient encounter procedure 04/01/2024 10:45 AM EST Office Visit [facility] Obstetrics and Gynecology [facility] [address] [place] [id number] Rosalina Bales MD [address] [facility] [address] [place] [address] [facility] Obstetrics and Gynecology - [place] Start: 02-02-2024 End: 02-01-2025 lamoTRIgine [Mass/volume] in Serum or Plasma Lamotrigine level Lab Routine Seizure (Multi) Expected: 02/02/2024 (Approximate), Expires: 02/01/2025 [facility] Work Phone: Comment on above: Expected: 02/02/2024 (Approximate), Expires: 02/01/2025 Start: 01-25-2024 COVID-19 Vaccine () COVID-19 Vaccine () [facility] Start: 01-25-2024 COVID-19 Vaccine () COVID-19 Vaccine () [facility] Start: 01-25-2024 [facility] Start: 10-24-2023 End: 10-23-2024 25-hydroxyvitamin D3 [Mass/volume] in Serum or Plasma Vitamin D Deficiency Screening (Vit D 25) Lab Routine Chronic fatigue and malaise Screening, lipid Vitamin D deficiency Iron deficiency Expected: 10/24/2023 (Approximate), Expires: 10/23/2024 [facility] Comment on above: Expected: 10/24/2023 (Approximate), Expires: 10/23/2024 Start: 10-24-2023 End: 10-23-2024 CBC W Auto Differential panel - Blood CBC auto differential Lab Routine Chronic fatigue and malaise Screening, lipid Vitamin D deficiency Iron deficiency Expected: 10/24/2023 (Approximate), Expires: 10/23/2024 [facility] Comment on above: Expected: 10/24/2023 (Approximate), Expires: 10/23/2024 Start: 10-24-2023 End: 10-23-2024 Iron and Iron binding capacity panel - Serum or Plasma Iron level Lab Routine Chronic fatigue and malaise Screening, lipid Vitamin D deficiency Iron deficiency Expected: 10/24/2023 (Approximate), Expires: 10/23/2024 [facility] Comment on above: Expected: 10/24/2023 (Approximate), Expires: 10/23/2024 Start: 10-24-2023 End: 10-23-2024 Lipid 1996 panel - Serum or Plasma Lipid panel Lab Routine Chronic fatigue and malaise Screening, lipid Vitamin D deficiency Iron deficiency Expected: 10/24/2023 (Approximate), Expires: 10/23/2024 [facility] Comment on above: Expected: 10/24/2023 (Approximate), Expires: 10/23/2024 Start: 10-24-2023 End: 10-23-2024 Thyrotropin [Units/volume] in Serum or Plasma TSH Lab Routine Chronic fatigue and malaise Screening, lipid Vitamin D deficiency Iron deficiency Expected: 10/24/2023 (Approximate), Expires: 10/23/2024 [facility] Work Phone: Comment on above: Expected: 10/24/2023 (Approximate), Expires: 10/23/2024 Start: 10-24-2023 End: 10-24-2023 Patient encounter procedure 10/24/2023 8:20 AM EDT Office Visit [facility] [address] [place] [address] Rosalina Santillan MD [address] [place], [place] [id number] [facility] Start: 06-03-2023 End: 06-03-2024 US Abdomen US abdomen complete Imaging Routine Abdominal discomfort Irregular periods Expected: 06/03/2023, Expires: 06/03/2024 [facility] [employer] Work Phone: Comment on above: Expected: 06/03/2023 , Expires: 06/03/2024 Start: 06-03-2023 End: 06-03-2024 US Pelvis US pelvis Imaging Routine Abdominal discomfort Irregular periods Expected: 06/03/2023, Expires: 06/03/2024 [facility] Comment on above: Expected: 06/03/2023 , Expires: 06/03/2024 Start: 05-26-2023 Depression Assessment Depression Ass essment [facility] Start: 04-03-2023 End: 04-03-2024 CBC W Auto Differential panel - Blood CBC and Auto Differential Lab Routine [facility] epilepsy (CMS/HCC) Expected: 04/03/2023 (Approximate), Expires: 04/03/2024 [facility] Work Phone: Comment on above: Expected: 04/03/2023 (Approximate), Expires: 04/03/2024 Start: 04-03-2023 End: 04-03-2024 Hepatic function 2000 panel - Serum or Plasma Hepatic Function Panel Lab Routine [facility] epilepsy (CMS/HCC) Expected: 04/03/2023 (Approximate), Expires: 04/03/2024 [facility] Work Phone: Comment on above: Expected: 04/03/2023 (Approximate), Expires: 04/03/2024 Start: 04-03-2023 FUVGENERAL, Provider : Hans Simmons, Status: Pen, Time: 8:00 AM FUVGENERAL, Provider: Hans Simmons, Status: Pen, Time: 8:00 AM UP-Fxlxrpjbw[facility] Work Phone: Start: 01-24-2023 COVID-19 Vaccine ( season) COVID-19 Vaccine ( season) [facility] Start: 01-24-2023 Influenza vaccination Influenza Vacc ine (#1) [facility] Start: 03-14-2022 FUVGENERAL, Provider : Hans Simmons, Status: Pen, Time: 8:15 AM FUVGENERAL, Provider: Hans Simmons, Status: Pen, Time: 8:15 AM [id number]-[facility] Work Phone: Start: 02-27-2022 Creatinine measurement Creatinine mo nitoring [facility] Start: 02-27-2022 Potassium monitoring Potassium monit oring [facility] Start: 01-24-2022 Influenza vaccination Influenza Vacc ine (#1) [facility] Start: 03-28-2021 End: 03-28-2021 Patient encounter procedure 03/28/2021 Office Visit Plastic Surgery Cliff Tejeda MD [address] [place] [address] [address] [place], [place] [id number] [facility] [place] Start: 01-24-2021 Influenza vaccination Flu vaccine (# 1) [facility] Start: 08-08-2020 DTaP/Tdap/Td vaccine (7 - Td or Tdap) DTaP/Tdap/Td vaccine (7 - Td or Tdap) [facility] Start: 08-08-2020 DTaP/Tdap/Td Vaccine s (7 - Td or Tdap) DTaP/Tdap/Td Vaccines (7 - Td or Tdap) [facility] Start: 08-08-2020 Urine microalbumin profile DTaP,Tdap,Td Vaccine (7 - Td or Tdap) [facility] Start: 11-15-2016 Screening for malign ant neoplasm of cervix [facility] Start: 11-15-2013 Hepatitis C screening Hepatitis C [facility] Start: 11-15-2013 HIV screening HIV Screening [facility] Start: 11-15-2010 HIV screening HIV screen [facility] Start: 11-15-2008 Varicella vaccination Varicell a Vaccines (1 of 2 - 13+ 2-dose series) [facility] Start: 2007 COVID-19 Vaccine (1) COVID-19 Vaccin e (1) [facility] Start: 2007 Depression Screening Depression Scre ening [facility] Start: 11-15-2006 HPV vaccine (1 - 2-d ose series) HPV vaccine (1 - 2-dose series) [facility] Start: 11-15-2006 HPV Vaccines (1 - 2- dose series) HPV Vaccines (1 - 2-dose series) [facility] Start: 11-15-2005 Diabetic foot examination Diabetes: Foot Exam [facility] Start: 11-15-2005 Glaucoma screening Diabetes: R etinopathy Screening [facility] Start: 11-15-2005 Preventive dental service Diabetes: Dental Exam [facility] Start: 11-19-2000 Varicella vaccination Varicell a Vaccines (1 of 2 - 2-dose childhood series) [facility] Start: 11-15-2000 COVID-19 Vaccine (1) COVID-19 Vaccin e (1) [facility] Start: 11-15-1996 Varicella vaccine (1 of 2 - 2-dose childhood series) Varicella vaccine (1 of 2 - 2-dose childhood series) [facility] Start: 05-17-1996 COVID-19 Vaccine (#1) COVID-19 Vacci ne (#1) [facility] Start: 1995 Hemoglobin A1c measurement Diabetes: Hemoglobin A1C [facility] Start: 1995 HIV screening HIV Screening [facility] Start: 1995 Lipid panel Lipid Panel [facility] Start: 1995 Yearly Adult Physical Yearly Adult P hysical [facility] OUTSIDE PROCEDURE SCAN OUTSIDE P ROCEDURE SCAN Procedures Ordered: 06/03/2023 [facility] Comment on above: Ordered: 06/03/2023 OUTSIDE PROCEDURE SCAN OUTSIDE P ROCEDURE SCAN Procedures Ordered: 08/15/2023 [facility] Comment on above: Ordered: 08/15/2023 OUTSIDE PROCEDURE SCAN OUTSIDE P ROCEDURE SCAN Procedures Ordered: 09/25/2024 [facility] Comment on above: Ordered: 09/25/2024 End: 08-15-2023 [facility] Work Phone: Comment on above: Once for 1 Occurrenc es starting 08/15/2023 until 08/15/2023 Immunizations Immunization Date Immunization Notes Care Provider Maribel toscano 10-31-2011 hepatitis A vaccine, pediatric/adolescent dosage, 2 dose schedule Hans Simmons MD Work Phone: [facility] Work Phone: 08-08-2010 hepatitis A vaccine, pediatric/adolescent dosage, 2 dose schedule Hans Simmons MD Work Phone: [facility] Work Phone: 08-08-2010 meningococcal polysaccharide (groups A, C, Y and W-135) diphtheria toxoid conjugate vaccine (MCV4P) Hans Simmons MD Work Phone: [facility] Work Phone: 08-08-2010 tetanus toxoid, redu dusty diphtheria toxoid, and acellular pertussis vaccine, adsorbed Hans Simmons MD Work Phone: [facility] Work Phone: 03-11-2008 influenza virus vacc ine, whole virus Hans Simmons MD Work Phone: [facility] Work Phone: 03-11-2008 influenza virus vacc ine, unspecified formulation Hans Simmons Work Phone: [facility] 03-06-2007 influenza virus vacc ine, whole virus Hans Simmons MD Work Phone: [facility] Work Phone: 06-06-2006 influenza virus vacc ine, whole virus Hans Simmnos MD Work Phone: [facility] Work Phone: 04-25-2003 influenza virus vacc ine, whole virus Hans Simmons MD Work Phone: [facility] Work Phone: 03-24-2003 influenza virus vacc ine, whole virus Hans Simmons MD Work Phone: [facility] Work Phone: 10-22-2000 diphtheria, tetanus toxoids and acellular pertussis vaccine, unspecified formulation Hans Simmons MD Work Phone: [facility] Work Phone: 10-22-2000 measles, mumps and rubella virus vaccine Hans Simmons MD Work Phone: [facility] Work Phone: 10-22-2000 poliovirus vaccine, inactivated Hans Simmons MD Work Phone: [facility] Work Phone: 01-17-1999 measles, mumps and rubella virus vaccine Hans Simmons MD Work Phone: [facility] Work Phone: 10-22-1997 poliovirus vaccine, inactivated Hans Simmons MD Work Phone: [facility] Work Phone: 06-09-1997 diphtheria, tetanus toxoids and acellular pertussis vaccine, unspecified formulation Hans Simmons MD Work Phone: [facility] Work Phone: 06-09-1997 haemophilus influenz ae type b vaccine, PRP-T conjugate Hans Simmons MD Work Phone: [facility] Work Phone: 06-09-1997 poliovirus vaccine, inactivated Hans Simmons MD Work Phone: [facility] Work Phone: 05-17-1996 diphtheria, tetanus toxoids and acellular pertussis vaccine, unspecified formulation Hans Simmons MD Work Phone: [facility] Work Phone: 05-17-1996 haemophilus influenz ae type b vaccine, PRP-T conjugate Hans Simmons MD Work Phone: [facility] Work Phone: 05-17-1996 hepatitis B vaccine, pediatric or pediatric/adolescent dosage Hans Simmons MD Work Phone: [facility] Work Phone: 03-23-1996 diphtheria, tetanus toxoids and acellular pertussis vaccine, unspecified formulation Hans Simmons MD Work Phone: [facility] Work Phone: 03-23-1996 haemophilus influenz ae type b vaccine, PRP-T conjugate Hans Simmons MD Work Phone: [facility] Work Phone: 03-23-1996 hepatitis B vaccine, pediatric or pediatric/adolescent dosage Hans Simmons MD Work Phone: [facility] Work Phone: 03-23-1996 poliovirus vaccine, inactivated Hans Simmons MD Work Phone: [facility] Work Phone: 01-28-1996 diphtheria, tetanus toxoids and acellular pertussis vaccine, unspecified formulation Hans Simmons MD Work Phone: [facility] Work Phone: 01-28-1996 haemophilus influenz ae type b vaccine, PRP-T conjugate Hans Simmons MD Work Phone: [facility] Work Phone: 01-28-1996 hepatitis B vaccine, pediatric or pediatric/adolescent dosage Hnas Simmons MD Work Phone: [facility] Work Phone: 01-28-1996 poliovirus vaccine, inactivated Hans Simmons MD Work Phone: [facility] Work Phone: Payers Date Payer Category Payer Self-pay 2021 Medicaid [id number] 2021 Medicaid (Managed Care) [facility] [id number] 2021 Medicaid HMO [id number] 2021 Unknown 2021 Unknown [id number] 2020 Unknown BCBS BCBS OUT OF STATE [id number] 2020-Present [address] [place] [address] [id number] 2015 Unknown [id number] 1995 Unknown [id number] 1995 Unknown [id number] 1995 Unknown [id number] 1995 Unknown [id number] Social History Date Type Detail Facility Assertion Unknown if ever smoked [id number] Work Phone: Start: 02-27-2021 End: 02-02-2024 Tobacco smoking status NHIS Never smoker [facility] Start: 02-27-2021 End: 02-02-2024 Tobacco use and exposure Never used [facility] Start: 02-27-2021 Alcohol intake Current drinke r of alcohol (finding) [facility] Work Phone: Start: 02-27-2021 End: 11-25-2024 Alcohol intake [facility] Work Phone: Start: 02-27-2021 Alcohol Comment occasional [facility] Work Phone: Start: 1995 Sex Assigned At Not on file [facility] Work Phone: Start: 03-27-2022 End: 02-02-2024 Exposure to SARS-CoV-2 (event) Not sure [facility] Start: 04-03-2023 End: 02-02-2024 Alcohol intake Lifetime non-drinker (finding) [facility] Work Phone: Start: 04-03-2023 End: 11-25-2024 Alcohol Use Disorder Identification Test - Consumption [AUDIT-C] [facility] Work Phone: How often to you hav e a drink containing alcohol? Never [facility] Work Phone: Average Number of Drinks Not on file [facility] Work Phone: Start: 06-03-2023 End: 02-12-2024 Alcohol intake Ex-drinker (finding) [facility] Start: 1995 Sex Assigned At Female [facility] Start: 06-03-2023 Gender identity Identifies as female gender (finding) [facility] Start: 06-03-2023 Sexual orientation Heterosexua l (finding) [facility] Tobacco smoking stat [facility] Tobacco smoking consumption unknown [facility] Start: 12-24-2021 Sex Female (finding) [facility] NEGATED: Highlighted rowStart: NINF History of tobacco use Passive smoker [facility] Work Phone: Functional Status Date Assessment Result Facility 11-25-2024 Patient Health Questionnaire 2 item (PHQ-2) [Reported] [facility] 11-25-2024 Little interest or pleasure in doing things Several days 11/25/2024 12:25 AM EDT Mychart, Generic Several days [facility] 11-25-2024 Feeling down, depres sed, or hopeless Several days 11/25/2024 12:25 AM EDT Mychart, Generic Several days [facility] NEGATED: Highlighted row Functional performance Functional status health issues are not documented Disease [id number] Work Phone: Mental Status Date Assessment Result Facility NEGATED: Highlighted row Cognitive function [Interpretation] Cognitive status health issues are not documented Disease CP-Grjnqdghn-[facility] Work Phone: Clinical Notes 02-24-2020 to 12-20-2024 Telephone Encounter - Ilsa Felder MA - 12/20/2024 10:38 AM EDTTelephone Encounter - Ilsa Felder MA - 12/20/2024 10:38 AM EDTAssessment & Plan Note - Rosalina Santillan MD - 11/25/2024 9:00 AM EDT Note Date & Type Note Facility 12-20-2024 Telephone encounter Note Recent Visits Date Type Provider Dept 11/25/24 Office Visit Rosalina Santillan MD [facility] Showing recent visits within past 365 days and meeting all other requirements Future Appointments No visits were found meeting these conditions. Showing future appointments within next 90 days and meeting all other requirements Requested Prescriptions Pending Prescriptions Disp Refills FeroSul 325 (65 Fe) MG tablet [Pharmacy Med Name: FeroSul 325 mg (65 mg iron) tablet] 90 tablet 1 Sig: TAKE 1 TABLET BY MOUTH DAILY WITH BREAKFAST Provider: Rosalina Santillan MD Verified pharmacy: yes Verified day(s) supplied: yes Verified refill(s) needed (previous prescription showing no refills in chart): Yes Have you received any controlled medications from any other provider? N/A Overdue for visit: No If yes - patient scheduled? No Most recent labs completed in chart? Yes Anemia: Lab Results Component Value Date HGB 13.8 10/25/2023 HCT 40.7 10/25/2023 MCV 87.9 10/25/2023 MCH 29.8 10/25/2023 MCHC 33.9 10/25/2023 [facility] 12-20-2024 Miscellaneous Notes Recent Visits Date Type Provider Dept 11/25/24 Office Visit Rosalina Santillan MD [facility] Showing recent visits within past 365 days and meeting all other requirements Future Appointments No visits were found meeting these conditions. Showing future appointments within next 90 days and meeting all other requirements Requested Prescriptions Pending Prescriptions Disp Refills FeroSul 325 (65 Fe) MG tablet [Pharmacy Med Name: FeroSul 325 mg (65 mg iron) tablet] 90 tablet 1 Sig: TAKE 1 TABLET BY MOUTH DAILY WITH BREAKFAST Provider: Rosalina Santillan MD Verified pharmacy: yes Verified day(s) supplied: yes Verified refill(s) needed (previous prescription showing no refills in chart): Yes Have you received any controlled medications from any other provider? N/A Overdue for visit: No If yes - patient scheduled? No Most recent labs completed in chart? Yes Anemia: Lab Results Component Value Date HGB 13.8 10/25/2023 HCT 40.7 10/25/2023 MCV 87.9 10/25/2023 MCH 29.8 10/25/2023 MCHC 33.9 10/25/2023 documented in this encounter [facility] 11-25-2024 Evaluation + Plan note Associated Problem(s): Seizures (HCC) Chronic stable issue neurology is following patient currently on Lamictal Orders: CBC auto differential; Future Comprehensive metabolic panel; Future Lipid panel; Future Iron level; Future [facility] 11-25-2024 History of Present illness Narrative Images from the original note were not included. [facility] - [address] [facility] [address] Dept: [phone] Dept Loc: [phone] Reason for Visit: Hypertension Assessment and Plan Assessment & Plan Chronic fatigue and malaise Orders: CBC auto differential; Future Comprehensive metabolic panel; Future Lipid panel; Future Iron level; Future Seizures (HCC) Orders: CBC auto differential; Future Comprehensive metabolic panel; Future Lipid panel; Future Iron level; Future Hair loss Orders: Vitamin D Deficiency Screening (Vit D 25); Future Vitamin D Deficiency Screening (Vit D 25); Future TSH; Future Blood pressure alteration Blood pressure was discussed in detail will have her return in about 1 to 2 weeks to get another blood pressure we can continue to monitor if it does get elevated we discussed starting medications but at this time we will continue to monitor a low-salt DASH diet recommended current treatment plan is effective, no change in therapy, orders and follow up as documented in EMR, lab results reviewed with patient, repeat labs ordered prior to next appointment, reviewed compliance with lifestyle measures, reviewed diet, exercise and weight control, reviewed medications and side effects in detail Return visit in 3 months. Subjective Hypertension Pertinent negatives include no headaches. is a 29-year-old female who is here for follow-up. She was seeing her neurologist who stated that her blood pressure was elevated at the time. During his appointment. Her blood pressure today is borderline. We discussed this. She states sometimes she gets anxious at doctors offices she is asymptomatic no chest pain or shortness of breath no headache or blurred vision her past medical history significant as her seizures in which she is seeing neurology for. Review of Systems Constitutional: Negative. Negative for activity change, appetite change and fever. HENT: Negative. Negative for congestion. Eyes: Negative. Negative for discharge. Respiratory: Negative. Negative for chest tightness. Cardiovascular: Negative. Gastrointestinal: Negative. Endocrine: Negative. Negative for cold intolerance. Genitourinary: Negative for difficulty urinating. Musculoskeletal: Negative. Neurological: Negative. Negative for dizziness, facial asymmetry and headaches. Hematological: Negative. Allergies[1] Current Medications[2] Problem List[3] Medical History[4] Social History Tobacco Use Smoking status: Never Smokeless tobacco: Never Substance Use Topics Alcohol use: Not Currently Alcohol/week: 2.0 standard drinks of alcohol Surgical History[5] Family History[6] Health Maintenance Topic Date Due HIV Screening Never done Varicella Vaccines (1 of 2 - 13+ 2-dose series) Never done Pap Smear Never done DTaP/Tdap/Td Vaccines (7 - Td or Tdap) 08/08/2020 COVID-19 Vaccine ( - 2023- season) Never done Influenza Vaccine (1) 01/24/2025 Depression Screening 11/25/2025 Zoster Vaccines (1 of 2) 11/15/2045 RSV Immunization for Adults (1 - 1-dose 75+ series) 11/15/2070 HIB Vaccines Completed Hepatitis B Vaccines Completed IPV Vaccines Completed Hepatitis A Vaccines Completed MMR Vaccines Completed Hepatitis C Screening Completed RSV Immunization under 20 Months Aged Out Meningococcal Vaccine Aged Out Rotavirus Vaccines Aged Out HPV Vaccines Aged Out Pneumococcal Vaccine: Pediatrics (0 to 5 Years) and At-Risk Patients (6 to 49 Years) Aged Out Meningococcal B Vaccine Aged Out Objective BP 138/88 (BP Location: Left arm, Patient Position: Sitting, BP Cuff Size: Adult) Pulse 95 Temp 36.8 C (98.2 F) (Temporal) Ht 5' 10.5 (1.791 m) Wt 212 lb (96.2 kg) BMI 29.99 kg/m Physical Exam Vitals and nursing note reviewed. Constitutional: Appearance: Normal appearance. HENT: Head: Normocephalic and atraumatic. Nose: No congestion or rhinorrhea. Mouth/Throat: Mouth: Mucous membranes are moist. Pharynx: Oropharynx is clear. No posterior oropharyngeal erythema. Eyes: Extraocular Movements: Extraocular movements intact. Conjunctiva/sclera: Conjunctivae normal. Pupils: Pupils are equal, round, and reactive to light. Cardiovascular: Pulses: Normal pulses. Heart sounds: Normal heart sounds. No murmur heard. Pulmonary: Effort: Pulmonary effort is normal. No respiratory distress. Breath sounds: Normal breath sounds. No wheezing. Abdominal: General: Abdomen is flat. Bowel sounds are normal. Palpations: Abdomen is soft. Tenderness: There is no abdominal tenderness. Musculoskeletal: General: No swelling. Cervical back: Normal range of motion. Skin: General: Skin is warm and dry. Neurological: General: No focal deficit present. Mental Status: She is alert and oriented to person, place, and time. Mental status is at baseline. Psychiatric: Mood and Affect: Mood normal. Data Reviewed and Summarized Labs: Lab Results Component Value Date WBC 4.7 10/25/2023 HGB 13.8 10/25/2023 HCT 40.7 10/25/2023 PLT 281 10/25/2023 TSH 1.536 10/25/2023 Lab Results Component Value Date NA 139 06/03/2023 K 3.9 06/03/2023 CL 103 06/03/2023 CO2 26 06/03/2023 BUN 6 (L) 06/03/2023 CREATININE 0.56 06/03/2023 GLUCOSE 97 06/03/2023 CALCIUM 9.4 06/03/2023 PROT 7.8 06/03/2023 BILITOT 0.4 06/03/2023 ALKPHOS 67 06/03/2023 AST 34 06/03/2023 ALT 29 06/03/2023 @GLUCOSELAB@ Lab Results Component Value Date CHOL 185 10/25/2023 Lab Results Component Value Date TRIG 66 10/25/2023 Lab Results Component Value Date HDL 65 (H) 10/25/2023 Lab Results Component Value Date LDLCALC 107 (H) 10/25/2023 No results found for: VLDL Lab Results Component Value Date CHOLHDLRATIO 3 10/25/2023 Imaging/Testing: US abdomen complete Narrative: Patient Name: SWETA CHRIS : 1995 Exam Date/Time: 08/15/2023 15:20 Procedure: US ABDOMEN COMPLETE Ordering Provider: SANTILLAN DIANA Reason For Exam: ABDOMINAL PAIN EXAMINATION: Complete abdominal ultrasound. EXAM DATE & TIME: 08/15/2023 3:20 PM EDT INDICATION: ABDOMINAL PAIN ADDITIONAL INFORMATION: 27-year-old female with abdominal pain presents for evaluation COMPARISON: None LIMITATIONS: As below TECHNIQUE: Ultrasound real-time scan with image documentation of the abdominal contents was performed. Color Doppler imaging was also employed. FINDINGS: LIVER Greatest transverse dimension: 15.5 cm. Echogenicity: Normal. Surface nodularity: Not visualized. Masses (size and location): None. GALLBLADDER Size and morphology: Normal caliber and wall thickness. Cholelithiasis: None. Pericholecystic fluid: None. Sonographic Parra's sign: Negative. BILE DUCTS Intrahepatic ducts: No biliary dilation Common bile duct: Normal caliber. Diameter: 4 mm PANCREAS The imaged portion of the pancreatic head is unremarkable. Visualization of the body and tail is limited due to overlying bowel gas artifact. RIGHT KIDNEY Size: 12.2 x 5.1 x 4.2 cm Renal cortex: Normal. Hydronephrosis: None. Calculi, cysts or masses: None. LEFT KIDNEY Size: 13.3 x 5.6 x 5.5 cm Renal cortex: Normal. Hydronephrosis: None. Calculi, cysts or masses: None. SPLEEN Size: 11.1 x 6.0 x 2.1 cm Parenchyma: Unremarkable. VESSELS Aorta: Visualized portions are unremarkable. IVC: Visualized portions are unremarkable. OTHER FINDINGS None. Impression: No acute sonographic abnormality identified. Report Dictated on Electronically Signed By: David Oh MD Electronically Signed Date/Time: 08/16/2023 1:32 PM EDT Rosalina Santillan MD [1] No Known Allergies [2] Current Outpatient Medications Medication Sig Dispense Refill FeroSul 325 (65 Fe) MG tablet TAKE 1 TABLET BY MOUTH DAILY WITH BREAKFAST 90 tablet 1 folic acid (Folvite) 1 MG tablet Take 1,000 mcg by mouth daily. lamoTRIgine (LaMICtal) 150 MG tablet TAKE 1 TABLET BY MOUTH EVERY MORNING and TAKE 1 & 1/2 (ONE AND ONE-HALF) TABLETS BY MOUTH EVERY DAY AT BEDTIME No current facility-administered medications for this visit. [3] Patient Active Problem List Diagnosis Acne Seizures (HCC) Scalp cyst Dermoid cyst [4] Past Medical History: Diagnosis Date Epilepsy (HCC) Scalp cyst [5] Past Surgical History: Procedure Laterality Date SOFT TISSUE TUMOR RESECTION WISDOM TOOTH EXTRACTION 07/2020 [6] Family History Problem Relation Name Age of Onset Breast cancer Mother's Sister Aunt Other ([id number]) Brother No Known Problems Mother Heart attack Father's Brother No Known Problems Father Asthma Brother Brother documented in this encounter [facility] 11-25-2024 History of Present illness Narrative Images from the original note were not included. [facility] - [address] [place] [id number] Dept: [phone] Dept Loc: [phone] Reason for Visit: Hypertension Assessment and Plan Assessment & Plan Chronic fatigue and malaise Orders: CBC auto differential; Future Comprehensive metabolic panel; Future Lipid panel; Future Iron level; Future Seizures (HCC) Chronic stable issue neurology is following patient currently on Lamictal Orders: CBC auto differential; Future Comprehensive metabolic panel; Future Lipid panel; Future Iron level; Future Hair loss No acute issue. I ordered vitamin D to [facility] recommend [id number] multivitamin or biotin. Orders: Vitamin D Deficiency Screening (Vit D 25); Future Vitamin D Deficiency Screening (Vit D 25); Future TSH; Future Blood pressure alteration Blood pressure was discussed in detail will have her return in about 1 to 2 weeks to get another blood pressure we can continue to monitor if it does get elevated we discussed starting medications but at this time we will continue to monitor a low-salt DASH diet recommended current treatment plan is effective, no change in therapy, orders and follow up as documented in EMR, lab results reviewed with patient, repeat labs ordered prior to next appointment, reviewed compliance with lifestyle measures, reviewed diet, exercise and weight control, reviewed medications and side effects in detail Return visit in 3 months. Subjective Hypertension Pertinent negatives include no headaches. is a 29-year-old female who is here for follow-up. She was seeing her neurologist who stated that her blood pressure was elevated at the time. During his appointment. Her blood pressure today is borderline. We discussed this. She states sometimes she gets anxious at doctors offices she is asymptomatic no chest pain or shortness of breath no headache or blurred vision her past medical history significant as her seizures in which she is seeing neurology for. Review of Systems Constitutional: Negative. Negative for activity change, appetite change and fever. HENT: Negative. Negative for congestion. Eyes: Negative. Negative for discharge. Respiratory: Negative. Negative for chest tightness. Cardiovascular: Negative. Gastrointestinal: Negative. Endocrine: Negative. Negative for cold intolerance. Genitourinary: Negative for difficulty urinating. Musculoskeletal: Negative. Neurological: Negative. Negative for dizziness, facial asymmetry and headaches. Hematological: Negative. Allergies[1] Current Medications[2] Problem List[3] Medical History[4] Social History Tobacco Use Smoking status: Never Smokeless tobacco: Never Substance Use Topics Alcohol use: Not Currently Alcohol/week: 2.0 standard drinks of alcohol Surgical History[5] Family History[6] Health Maintenance Topic Date Due HIV Screening Never done Varicella Vaccines (1 of 2 - 13+ 2-dose series) Never done Pap Smear Never done DTaP/Tdap/Td Vaccines (7 - Td or Tdap) 08/08/2020 COVID-19 Vaccine ( - 2023- season) Never done Influenza Vaccine (1) 01/24/2025 Depression Screening 11/25/2025 Zoster Vaccines (1 of 2) 11/15/2045 RSV Immunization for Adults (1 - 1-dose 75+ series) 11/15/2070 HIB Vaccines Completed Hepatitis B Vaccines Completed IPV Vaccines Completed Hepatitis A Vaccines Completed MMR Vaccines Completed Hepatitis C Screening Completed RSV Immunization under 20 Months Aged Out Meningococcal Vaccine Aged Out Rotavirus Vaccines Aged Out HPV Vaccines Aged Out Pneumococcal Vaccine: Pediatrics (0 to 5 Years) and At-Risk Patients (6 to 49 Years) Aged Out Meningococcal B Vaccine Aged Out Objective BP 138/88 (BP Location: Left arm, Patient Position: Sitting, BP Cuff Size: Adult) Pulse 95 Temp 36.8 C (98.2 F) (Temporal) Ht 5' 10.5 (1.791 m) Wt 212 lb (96.2 kg) BMI 29.99 kg/m Physical Exam Vitals and nursing note reviewed. Constitutional: Appearance: Normal appearance. HENT: Head: Normocephalic and atraumatic. Nose: No congestion or rhinorrhea. Mouth/Throat: Mouth: Mucous membranes are moist. Pharynx: Oropharynx is clear. No posterior oropharyngeal erythema. Eyes: Extraocular Movements: Extraocular movements intact. Conjunctiva/sclera: Conjunctivae normal. Pupils: Pupils are equal, round, and reactive to light. Cardiovascular: Pulses: Normal pulses. Heart sounds: Normal heart sounds. No murmur heard. Pulmonary: Effort: Pulmonary effort is normal. No respiratory distress. Breath sounds: Normal breath sounds. No wheezing. Abdominal: General: Abdomen is flat. Bowel sounds are normal. Palpations: Abdomen is soft. Tenderness: There is no abdominal tenderness. Musculoskeletal: General: No swelling. Cervical back: Normal range of motion. Skin: General: Skin is warm and dry. Neurological: General: No focal deficit present. Mental Status: She is alert and oriented to person, place, and time. Mental status is at baseline. Psychiatric: Mood and Affect: Mood normal. Data Reviewed and Summarized Labs: Lab Results Component Value Date WBC 4.7 10/25/2023 HGB 13.8 10/25/2023 HCT 40.7 10/25/2023 PLT 281 10/25/2023 TSH 1.536 10/25/2023 Lab Results Component Value Date NA 139 06/03/2023 K 3.9 06/03/2023 CL 103 06/03/2023 CO2 26 06/03/2023 BUN 6 (L) 06/03/2023 CREATININE 0.56 06/03/2023 GLUCOSE 97 06/03/2023 CALCIUM 9.4 06/03/2023 PROT 7.8 06/03/2023 BILITOT 0.4 06/03/2023 ALKPHOS 67 06/03/2023 AST 34 06/03/2023 ALT 29 06/03/2023 @GLUCOSELAB@ Lab Results Component Value Date CHOL 185 10/25/2023 Lab Results Component Value Date TRIG 66 10/25/2023 Lab Results Component Value Date HDL 65 (H) 10/25/2023 Lab Results Component Value Date LDLCALC 107 (H) 10/25/2023 No results found for: VLDL Lab Results Component Value Date CHOLHDLRATIO 3 10/25/2023 Imaging/Testing: US abdomen complete Narrative: [facility] 1995 [id number] Exam Date/Time: 08/15/2023 15:20 Procedure: US ABDOMEN COMPLETE Ordering Provider: SANTILLAN DIANA Reason For Exam: ABDOMINAL PAIN EXAMINATION: Complete abdominal ultrasound. EXAM DATE & TIME: 08/15/2023 3:20 PM EDT INDICATION: ABDOMINAL PAIN ADDITIONAL INFORMATION: 27-year-old female with abdominal pain presents for evaluation COMPARISON: None LIMITATIONS: As below TECHNIQUE: Ultrasound real-time scan with image documentation of the abdominal contents was performed. Color Doppler imaging was also employed. FINDINGS: LIVER Greatest transverse dimension: 15.5 cm. Echogenicity: Normal. Surface nodularity: Not visualized. Masses (size and location): None. GALLBLADDER Size and morphology: Normal caliber and wall thickness. Cholelithiasis: None. Pericholecystic fluid: None. Sonographic Parra's sign: Negative. BILE DUCTS Intrahepatic ducts: No biliary dilation Common bile duct: Normal caliber. Diameter: 4 mm PANCREAS The imaged portion of the pancreatic head is unremarkable. Visualization of the body and tail is limited due to overlying bowel gas artifact. RIGHT KIDNEY Size: 12.2 x 5.1 x 4.2 cm Renal cortex: Normal. Hydronephrosis: None. Calculi, cysts or masses: None. LEFT KIDNEY Size: 13.3 x 5.6 x 5.5 cm Renal cortex: Normal. Hydronephrosis: None. Calculi, cysts or masses: None. SPLEEN Size: 11.1 x 6.0 x 2.1 cm Parenchyma: Unremarkable. VESSELS Aorta: Visualized portions are unremarkable. IVC: Visualized portions are unremarkable. OTHER FINDINGS None. Impression: No acute sonographic abnormality identified. Report Dictated on Electronically Signed By: David Oh MD Electronically Signed Date/Time: 08/16/2023 1:32 PM EDT Rosalina Santillan MD [1] No Known Allergies [2] Current Outpatient Medications Medication Sig Dispense Refill FeroSul 325 (65 Fe) MG tablet TAKE 1 TABLET BY MOUTH DAILY WITH BREAKFAST 90 tablet 1 folic acid (Folvite) 1 MG tablet Take 1,000 mcg by mouth daily. lamoTRIgine (LaMICtal) 150 MG tablet TAKE 1 TABLET BY MOUTH EVERY MORNING and TAKE 1 & 1/2 (ONE AND ONE-HALF) TABLETS BY MOUTH EVERY DAY AT BEDTIME No current facility-administered medications for this visit. [3] Patient Active Problem List Diagnosis Acne Seizures (HCC) Scalp cyst Dermoid cyst [4] Past Medical History: Diagnosis Date Epilepsy (HCC) Scalp cyst [5] Past Surgical History: Procedure Laterality Date SOFT TISSUE TUMOR RESECTION WISDOM TOOTH EXTRACTION 07/2020 [6] Family History Problem Relation Name Age of Onset Breast cancer Mother's Sister Aunt Other ([id number]) Brother No Known Problems Mother Heart attack Father's Brother No Known Problems Father Asthma Brother Brother documented in this encounter [facility] 11-25-2024 Miscellaneous Notes Associated Problem(s): Seizures (HCC) Orders: CBC auto differential; Future Comprehensive metabolic panel; Future Lipid panel; Future Iron level; Future documented in this encounter [facility] 11-25-2024 Miscellaneous Notes Associated Problem(s): Seizures (HCC) Chronic stable issue neurology is following patient currently on Lamictal Orders: CBC auto differential; Future Comprehensive metabolic panel; Future Lipid panel; Future Iron level; Future documented in this encounter [facility] 10-12-2024 History of Present illness Narrative Subjective Patient ID: Sweta Chris is a 28 y.o. female. She presents today with a chief complaint of Vaginal Discharge. Patient presents with a 2 day history of vaginal itching and white vaginal discharge. She is currently on day 5 of Amoxicillin s/p tooth extraction. She denies vaginal pain. No abdominal or pelvic pain is reported. History of Present Illness Vaginal Discharge Past Medical History Allergies as of 10/12/2024 (No Known Allergies) Prescriptions Prior to Admission[1] Medical History[2] Surgical History[3] reports that she has never smoked. She has never been exposed to tobacco smoke. She has never used smokeless tobacco. She reports that she does not currently use alcohol. She reports that she does not use drugs. Review of Systems Review of Systems Genitourinary: Positive for vaginal discharge. Objective Vitals: 10/12/24 1732 BP: (!) 154/93 Pulse: 89 Resp: 16 Temp: 36.8 C (98.3 F) TempSrc: Oral SpO2: 98% Weight: 97.5 kg (215 lb) Height: 1.803 m (5' 11) No LMP recorded. Physical Exam Vitals and nursing note reviewed. Constitutional: Appearance: Normal appearance. Abdominal: General: Abdomen is flat. Bowel sounds are normal. Palpations: Abdomen is soft. Neurological: Mental Status: She is alert. Procedures Point of Care Test & Imaging Results from this visit No results found for this visit on 10/12/24. Imaging No results found. Cardiology, Vascular, and Other Imaging No other imaging results found for the past 2 days Diagnostic study results (if any) were reviewed by Libertad Lopez MD. Assessment/Plan Allergies, medications, history, and pertinent labs/EKGs/Imaging reviewed by Libertad Lopez MD. Medical Decision Making Orders and Diagnoses There are no diagnoses linked to this encounter. Medical Admin Record Patient disposition: Home Electronically signed by Libertad Lopez MD 5:39 PM [1] (Not in a hospital admission) [2] Past Medical History: Diagnosis Date Epilepsy, unspecified, not intractable, without status epilepticus Epilepsy [3] Past Surgical History: Procedure Laterality Date OTHER SURGICAL HISTORY 03/14/2020 Cyst excision OTHER SURGICAL HISTORY 02/28/2021 [place] tooth extraction documented in this encounter [facility] Work Phone: 10-12-2024 Instructions Libertad Lopez MD - 10/12/2024 5:10 PM EDT Fluconazole as directed Follow up with new or worsening symptoms documented in this encounter [facility] Work Phone: 03-15-2024 Telephone encounter Note Recent Visits Date Type Provider Dept 10/24/23 Office Visit Rosalina Santillan MD [facility] 06/03/23 Office Visit Rosalina Santillan MD [facility] Showing recent visits within past 365 days and meeting all other requirements Future Appointments Date Type Provider Dept 04/30/24 Appointment Rosalina Santillan MD [facility] Showing future appointments within next 90 days and meeting all other requirements Requested Prescriptions Pending Prescriptions Disp Refills FeroSul 325 (65 Fe) MG tablet [Pharmacy Med Name: FeroSul 325 mg (65 mg iron) tablet] 90 tablet 1 Sig: TAKE 1 TABLET BY MOUTH DAILY WITH BREAKFAST Provider: Rosalina Santillan MD Verified pharmacy: yes Verified day(s) supplied: yes Verified refill(s) needed (previous prescription showing no refills in chart): Yes Have you received any controlled medications from any other provider? N/A Overdue for visit: No If yes - patient scheduled? Yes Most recent labs completed in chart? Yes Anemia: Lab Results Component Value Date HGB 13.8 10/25/2023 HCT 40.7 10/25/2023 MCV 87.9 10/25/2023 MCH 29.8 10/25/2023 MCHC 33.9 10/25/2023 [facility] 03-15-2024 Miscellaneous Notes Recent Visits Date Type Provider Dept 10/24/23 Office Visit Rosalina Santillan MD [facility] 06/03/23 Office Visit Rosalina Santillan MD [facility] Showing recent visits within past 365 days and meeting all other requirements Future Appointments Date Type Provider Dept 04/30/24 Appointment Rosalina Santillan MD [facility] Showing future appointments within next 90 days and meeting all other requirements Requested Prescriptions Pending Prescriptions Disp Refills FeroSul 325 (65 Fe) MG tablet [Pharmacy Med Name: FeroSul 325 mg (65 mg iron) tablet] 90 tablet 1 Sig: TAKE 1 TABLET BY MOUTH DAILY WITH BREAKFAST Provider: Rosalina aSntillan MD Verified pharmacy: yes Verified day(s) supplied: yes Verified refill(s) needed (previous prescription showing no refills in chart): Yes Have you received any controlled medications from any other provider? N/A Overdue for visit: No If yes - patient scheduled? Yes Most recent labs completed in chart? Yes Anemia: Lab Results Component Value Date HGB 13.8 10/25/2023 HCT 40.7 10/25/2023 MCV 87.9 10/25/2023 MCH 29.8 10/25/2023 MCHC 33.9 10/25/2023 documented in this encounter [facility] 02-12-2024 History of Present illness Narrative Images from the original note were not included. [facility] [address] [facility] [id number] Dept Visit Date: 02/12/24 HPI: Sweta Chris is a 28 y.o. female who presents today for: Chief Complaint Patient presents with Headache Ongoing headaches. Started last Friday02/03/24. Has had a headache everyday since then. Some days are better than others. Has been taking tylenol. Pain is mostly in the front behind eyes, sometimes its on the top of head, sometimes its on the side. Started period last Friday-unsure if related. Patient of Dr. Santillan, here today for evaluation of acute problem; POD schedule. Headache This is a new problem. The current episode started in the past 7 days. The problem occurs constantly. The problem has been gradually improving. The pain is located in the Left unilateral and temporal region. The pain does not radiate. The pain quality is not similar to prior headaches. The quality of the pain is described as aching and band-like. The pain is at a severity of 4/10. The pain is moderate. Associated symptoms include insomnia and phonophobia. Pertinent negatives include no abnormal behavior, anorexia, blurred vision, dizziness, ear pain, eye pain, eye redness, fever, hearing loss, loss of balance, nausea, numbness, photophobia, scalp tenderness, sinus pressure, sore throat, tinnitus, visual change or weakness. The symptoms are aggravated by menstrual cycle and fatigue. She has tried acetaminophen and darkened room for the symptoms. The treatment provided mild relief. There is no history of cluster headaches, hypertension, migraine headaches or migraines in the family. Answers submitted by the patient for this visit: Other (Submitted on 02/11/2024) Please describe your symptoms.: Headache that varies in intensity and can sometimes be helped with Tylenol. Occurs mostly around the zoroastrian or behind the eyes, but sometimes on top of head as well. Have you had these symptoms before?: No How long have you been having these symptoms?: For a week Please list any medications you are currently taking for this condition.: Tylenol Extra Strength Please describe any probable cause for these symptoms. : The first day I had the headache was after I had a random sleepless night. I gave it a few days to go away thinking it was from lack of sleep, but it hasn t gone away in the last 7 days Current Outpatient Medications Medication Sig Dispense Refill FeroSul 325 (65 Fe) MG tablet TAKE 1 TABLET BY MOUTH DAILY WITH BREAKFAST 90 tablet 1 folic acid (Folvite) 1 MG tablet Take 1,000 mcg by mouth daily. lamoTRIgine (LaMICtal) 150 MG tablet TAKE 1 TABLET BY MOUTH EVERY MORNING and TAKE 1 & 1/2 (ONE AND ONE-HALF) TABLETS BY MOUTH EVERY DAY AT BEDTIME No current facility-administered medications for this visit. No Known Allergies Past Medical History: Diagnosis Date Epilepsy (HCC) Scalp cyst Subjective: Review of Systems Constitutional: Negative for fever. HENT: Negative for ear pain, hearing loss, sinus pressure, sore throat and tinnitus. Eyes: Negative for blurred vision, photophobia, pain and redness. Gastrointestinal: Negative for anorexia and nausea. Neurological: Positive for headaches. Negative for dizziness, weakness, numbness and loss of balance. Psychiatric/Behavioral: Positive for sleep disturbance. The patient has insomnia. Objective: BP (!) 142/80 Pulse 90 Temp 36.8 C (98.2 F) (Temporal) Ht 5' 10.7 (1.796 m) Wt 195 lb (88.5 kg) SpO2 97% BMI 27.43 kg/m Physical Exam Vitals and nursing note reviewed. Constitutional: General: She is not in acute distress. Appearance: Normal appearance. She is not toxic-appearing. HENT: Head: Normocephalic and atraumatic. Jaw: There is normal jaw occlusion. Eyes: Extraocular Movements: Extraocular movements intact. Conjunctiva/sclera: Conjunctivae normal. Pupils: Pupils are equal, round, and reactive to light. Cardiovascular: Rate and Rhythm: Normal rate and regular rhythm. Pulmonary: Effort: Pulmonary effort is normal. Neurological: Mental Status: She is alert and oriented to person, place, and time. Cranial Nerves: No cranial nerve deficit. Motor: No weakness. Coordination: Coordination normal. Gait: Gait normal. Psychiatric: Mood and Affect: Mood normal. Assessment: Diagnosis Plan 1. Acute non intractable tension-type headache Plan: Sweta was seen today for headache. Diagnoses and all orders for this visit: Acute non intractable tension-type headache (Primary) Acute problem. Symptoms and exam consistent with tension headache. No red flags, no neuro deficits. No signs of URI/sinusitis or other infectious process. Offered toradol today, declines. Advised to continue to treat with rest, cold packs, tylenol, dark room, ensure adequate hydration. Reviewed red flags to return. Follow up if symptoms worsen or fail to improve. BRENNA Vasquez 02/12/2024 12:44 PM documented in this encounter [facility] 02-02-2024 History of Present illness Narrative Subjective Sweta Aries 28 y.o. HPI The patient states that she has been doing very well from a neurological standpoint. She has had no further seizures. She is compliant with her Lamictal and takes 150 mg in the morning and 225 mg in the evening. She is also compliant with iron, folic acid, B12, vitamin D and omega-3 fatty acids. The patient is getting about 8 hours of sleep and and does not drink any alcohol. The patient did have liver function test done on 06/03/2023 that were normal. She had a CBC done on 10/25/2023 that was normal. Review of Systems Neurological: Positive for seizures. All other systems reviewed and are negative. Patient Active Problem List Diagnosis Jacksonian epilepsy (Multi) Seizure (Multi) Past Medical History: Diagnosis Date Epilepsy, unspecified, not intractable, without status epilepticus (Multi) Epilepsy Past Surgical History: Procedure Laterality Date OTHER SURGICAL HISTORY 03/14/2020 Cyst excision OTHER SURGICAL HISTORY 02/28/2021 [place] tooth extraction Social History Socioeconomic History Marital status: Single Spouse name: Not on file Number of children: Not on file Years of education: Not on file Highest education level: Not on file Occupational History Not on file Tobacco Use Smoking status: Never Passive exposure: Never Smokeless tobacco: Never Vaping Use Vaping status: Never Used Substance and Sexual Activity Alcohol use: Never Drug use: Never Sexual activity: Not on file Other Topics Concern Not on file Social History Narrative Not on file Social Determinants of Health Financial Resource Strain: Not on file Food Insecurity: Not on file Transportation Needs: Not on file Physical Activity: Not on file Stress: Not on file Social Connections: Not on file Intimate Partner Violence: Not on file Housing Stability: Not on file Family History Problem Relation Name Age of Onset Other (D[place]henne muscle) Brother Alzheimer's disease Maternal Grandmother Other (Cerebrovascular) Maternal Grandmother Alzheimer's disease Maternal Grandfather Current Outpatient Medications Medication Instructions cholecalciferol (Vitamin D-3) 50 MCG (2000 UT) tablet 1 tablet, oral, Daily cyanocobalamin (Vitamin B-12) 1,000 mcg tablet 1 tablet, oral, Daily ferrous sulfate (325 mg ferrous sulfate) 325 mg, oral, Daily RT folic acid (Folvite) 1 mg tablet 1 tablet, oral, Daily lamoTRIgine (LaMICtal) 150 mg tablet TAKE 1 TABLET BY MOUTH EVERY MORNING and TAKE 1 & 1/2 (ONE AND ONE-HALF) TABLETS BY MOUTH EVERY DAY AT BEDTIME omega-3 fatty acids-fish oil (One-Per-Day [place]-3) 684-1,200 mg capsule oral No Known Allergies Objective BP 142/90 (BP Location: Left arm) Pulse 98 Temp 36.4 C (97.5 F) Resp 16 Ht 1.803 m (5' 11) Wt 89.2 kg (196 lb 9.6 oz) BMI 27.42 kg/m GENERAL APPEARANCE: No distress, alert and cooperative. CARDIOVASCULAR: Regular, rate and rhythm, without murmur. No carotid bruits. Pulses +2 and equal in all extremities. No edema, or tenderness to palpation. MENTAL STATE: Orientation was normal to time, place and person. Recent and remote memory was intact. Attention span and concentration were normal. Language testing was normal for comprehension, repetition, expression, and naming. Calculation was intact. The patient could correctly interpret a picture, and copy a diagram. General fund of knowledge was intact. Mini-mental status examination was performed with no errors. OPHTHALMOSCOPIC: The ophthalmoscopic exam normal. The fundi were well visualized with normal disc margins, clear vessels and vascular pulsations. No disc edema. The cup/disk ratio was not enlarged. No hemorrhages or exudates were present in the posterior segments that were visualized. CRANIAL NERVES: Cranial nerves were normal. CN 2- Visual Acuity OD: 20/20 (corrected) OS: 20/20 (corrected); visual bueno full to confrontation. CN 3, 4, 6- Pupils round, 4 mm in diameter, equally reactive to light. No ptosis. EOMs normal alignment, full range of movement, no nystagmus CN 5- Facial sensation intact bilaterally. Normal corneal reflexes. CN 7- Normal and symmetric facial strength. Nasolabial folds symmetric. CN 8- Hearing intact to finger rub, whisper. CN 9- Palate elevates symmetrically. Normal gag reflex. CN 11- Normal strength of shoulder shrug and neck turning CN 12- Tongue midline, with normal bulk and strength; no fasciculations. MOTOR: Motor exam was normal. Muscle bulk and tone were normal in both upper and lower extremities. Muscle strength was 5/5 in distal and proximal muscles in both upper and lower extremities. No fasciculations, tremor or other abnormal movements were present. GAIT: Station was stable with a normal base and negative Romberg sign. Gait was stable with a normal arm swing and speed. No ataxia, shuffling, steppage or waddling was noted. Tandem gait was intact. Postural reflexes were normal. Assessment/Plan The patient is stable from a neurological standpoint. The patient should continue her lamotrigine at the current dose. The patient needs to limit the level. The patient needs to continue folic acid 1 mg a day. The patient does need a CBC and liver function test done every 6 months. The patient needs to get at least 8 hours of sleep a night and avoid excessive alcohol intake. It is certainly okay for the patient to drive. The patient's blood pressure is mildly elevated and she needs follow-up with her primary care doctor for this. I discussed all these issues in detail with the patient and answered all her questions. The patient will follow up with me in one year. documented in this encounter [facility] Work Phone: 02-02-2024 Instructions Hans Simmons MD - 02/02/2024 9:30 AM EDT The patient is stable from a neurological standpoint. The patient should continue her lamotrigine at the current dose. The patient needs to limit the level. The patient needs to continue folic acid 1 mg a day. The patient does need a CBC and liver function test done every 6 months. The patient needs to get at least 8 hours of sleep a night and avoid excessive alcohol intake. It is certainly okay for the patient to drive. The patient's blood pressure is mildly elevated and she needs follow-up with her primary care doctor for this. I discussed all these issues in detail with the patient and answered all her questions. The patient will follow up with me in one year. documented in this encounter [facility] Work Phone: 10-24-2023 History of Present illness Narrative Images from the original note were not included. [facility] [address] [place] [id number] Dept: [phone] Dept Loc: [phone] Reason for Visit: Follow-up (Hair loss and fatigue, would like to have lab work to check for hypothyroidism pt said several family members have thyroid issues ) Assessment and Plan 1. Chronic fatigue and malaise - TSH - CBC auto differential - Iron level - Vitamin D Deficiency Screening (Vit D 25) - Lipid panel 2. Screening, lipid - TSH - CBC auto differential - Iron level - Vitamin D Deficiency Screening (Vit D 25) - Lipid panel 3. Vitamin D deficiency - TSH - CBC auto differential - Iron level - Vitamin D Deficiency Screening (Vit D 25) - Lipid panel 4. Iron deficiency - TSH - CBC auto differential - Iron level - Vitamin D Deficiency Screening (Vit D 25) - Lipid panel 5. Abdominal discomfort - [facility] 6. Family history of colon cancer - [facility] current treatment plan is effective, no change in therapy, orders and follow up as documented in EMR, lab results reviewed with patient, repeat labs ordered prior to next appointment, reviewed compliance with lifestyle measures, reviewed diet, exercise and weight control, reviewed medications and side effects in detail Return visit in 3 months. Subjective HPI this is a 27-year-old female patient who has been experiencing chronic fatigue. Since we found that she was iron deficient and vitamin D deficient she is taking supplementation she is feeling a bit better but she is noticing hair loss the fatigue is still there. She is also had a history of abdominal discomfort she had an ultrasound in the past which showed no acute findings there is a family history of grandmother having colon cancer sometimes her stool varies. No blood in her stool. Sometimes she will have a small amount of stool. Another times will be more diarrhea-like. Review of Systems Constitutional: Negative. Negative for activity change, appetite change and fever. HENT: Negative. Negative for congestion. Eyes: Negative. Negative for discharge. Respiratory: Negative. Negative for chest tightness. Cardiovascular: Negative. Gastrointestinal: Positive for abdominal distention. Endocrine: Negative. Negative for cold intolerance. Genitourinary: Negative for difficulty urinating. Musculoskeletal: Negative. Neurological: Negative. Negative for dizziness, facial asymmetry and headaches. Hematological: Negative. No Known Allergies Outpatient Medications Prior to Visit Medication Sig Dispense Refill FeroSul 325 (65 Fe) MG tablet TAKE 1 TABLET BY MOUTH DAILY WITH BREAKFAST 90 tablet 1 folic acid (Folvite) 1 MG tablet Take 1,000 mcg by mouth daily. lamoTRIgine (LaMICtal) 150 MG tablet TAKE 1 TABLET BY MOUTH EVERY MORNING and TAKE 1 & 1/2 (ONE AND ONE-HALF) TABLETS BY MOUTH EVERY DAY AT BEDTIME No facility-administered medications prior to visit. Patient Active Problem List Diagnosis Acne Seizures (HCC) Scalp cyst Dermoid cyst Past Medical History: Diagnosis Date Epilepsy (HCC) Scalp cyst Social History Tobacco Use Smoking status: Never Smokeless tobacco: Never Substance Use Topics Alcohol use: Not Currently Alcohol/week: 2.0 standard drinks of alcohol Past Surgical History: Procedure Laterality Date SOFT TISSUE TUMOR RESECTION WISDOM TOOTH EXTRACTION 07/2020 Family History Problem Relation Name Age of Onset Breast cancer Mother's Sister Aunt Other ([id number]) Brother No Known Problems Mother Heart attack Father's Brother No Known Problems Father Asthma Brother Brother Health Maintenance Topic Date Due HIV Screening Never done Depression Screening Never done Varicella Vaccines (1 of 2 - 13+ 2-dose series) Never done Pap Smear Never done DTaP/Tdap/Td Vaccines (7 - Td or Tdap) 08/08/2020 COVID-19 Vaccine ( - 2022- season) Never done Influenza Vaccine (Season Ended) 2024 Zoster Vaccines (1 of 2) 11/15/2045 RSV Immunization aged 60 or older (1 - 1-dose 60+ series) 2055 HIB Vaccines Completed Hepatitis B Vaccines Completed IPV Vaccines Completed Hepatitis A Vaccines Completed MMR Vaccines Completed Hepatitis C Screening Completed RSV Immunization under 20 Months Aged Out Meningococcal Vaccine Aged Out Rotavirus Vaccines Aged Out HPV Vaccines Aged Out Pneumococcal Vaccine: Pediatrics (0 to 5 Years) and At-Risk Patients (6 to 64 Years) Aged Out Objective BP 108/72 Pulse 90 Temp 36.7 C (98 F) Ht 5' 10.7 (1.796 m) Wt 203 lb (92.1 kg) LMP 10/16/2023 SpO2 97% BMI 28.55 kg/m Physical Exam Vitals and nursing note reviewed. Constitutional: Appearance: Normal appearance. HENT: Head: Normocephalic and atraumatic. Nose: No congestion or rhinorrhea. Mouth/Throat: Mouth: Mucous membranes are moist. Pharynx: Oropharynx is clear. No posterior oropharyngeal erythema. Eyes: Extraocular Movements: Extraocular movements intact. Conjunctiva/sclera: Conjunctivae normal. Pupils: Pupils are equal, round, and reactive to light. Cardiovascular: Pulses: Normal pulses. Heart sounds: Normal heart sounds. No murmur heard. Pulmonary: Effort: Pulmonary effort is normal. No respiratory distress. Breath sounds: Normal breath sounds. No wheezing. Abdominal: General: Abdomen is flat. Bowel sounds are normal. Palpations: Abdomen is soft. Tenderness: There is no abdominal tenderness. Musculoskeletal: General: No swelling. Cervical back: Normal range of motion. Skin: General: Skin is warm and dry. Neurological: General: No focal deficit present. Mental Status: She is alert and oriented to person, place, and time. Mental status is at baseline. Psychiatric: Mood and Affect: Mood normal. Data Reviewed and Summarized Labs: Lab Results Component Value Date WBC 6.3 06/03/2023 HGB 12.2 06/03/2023 HCT 37.8 06/03/2023 PLT 349 06/03/2023 TSH 2.849 02/27/2021 Lab Results Component Value Date NA 139 06/03/2023 K 3.9 06/03/2023 CL 103 06/03/2023 CO2 26 06/03/2023 BUN 6 (L) 06/03/2023 CREATININE 0.56 06/03/2023 GLUCOSE 97 06/03/2023 CALCIUM 9.4 06/03/2023 PROT 7.8 06/03/2023 BILITOT 0.4 06/03/2023 ALKPHOS 67 06/03/2023 AST 34 06/03/2023 ALT 29 06/03/2023 @GLUCOSELAB@ No results found for: CHLPL, CHOL No results found for: TRIG No results found for: HDL No results found for: LDLCALC No results found for: VLDL No results found for: CHOLHDLRATIO Imaging/Testing: US abdomen complete Narrative: Patient Name: SWETA CHRIS : 1995 Exam Date/Time: 08/15/2023 15:20 Procedure: US ABDOMEN COMPLETE Ordering Provider: SANTILLAN DIANA Reason For Exam: ABDOMINAL PAIN EXAMINATION: Complete abdominal ultrasound. EXAM DATE & TIME: 08/15/2023 3:20 PM EDT INDICATION: ABDOMINAL PAIN ADDITIONAL INFORMATION: 27-year-old female with abdominal pain presents for evaluation COMPARISON: None LIMITATIONS: As below TECHNIQUE: Ultrasound real-time scan with image documentation of the abdominal contents was performed. Color Doppler imaging was also employed. FINDINGS: LIVER Greatest transverse dimension: 15.5 cm. Echogenicity: Normal. Surface nodularity: Not visualized. Masses (size and location): None. GALLBLADDER Size and morphology: Normal caliber and wall thickness. Cholelithiasis: None. Pericholecystic fluid: None. Sonographic Parra's sign: Negative. BILE DUCTS Intrahepatic ducts: No biliary dilation Common bile duct: Normal caliber. Diameter: 4 mm PANCREAS The imaged portion of the pancreatic head is unremarkable. Visualization of the body and tail is limited due to overlying bowel gas artifact. RIGHT KIDNEY Size: 12.2 x 5.1 x 4.2 cm Renal cortex: Normal. Hydronephrosis: None. Calculi, cysts or masses: None. LEFT KIDNEY Size: 13.3 x 5.6 x 5.5 cm Renal cortex: Normal. Hydronephrosis: None. Calculi, cysts or masses: None. SPLEEN Size: 11.1 x 6.0 x 2.1 cm Parenchyma: Unremarkable. VESSELS Aorta: Visualized portions are unremarkable. IVC: Visualized portions are unremarkable. OTHER FINDINGS None. Impression: No acute sonographic abnormality identified. Report Dictated on Electronically Signed By: David Oh MD Electronically Signed Date/Time: 08/16/2023 1:32 PM EDT Rosalina Santillan MD documented in this encounter [facility] 10-24-2023 History of Present illness Narrative Images from the original note were not included. [facility] [address] [place] [address] [address] [place] [id number] Dept: [phone] Dept Loc: [phone] Reason for Visit: Follow-up (Hair loss and fatigue, would like to have lab work to check for hypothyroidism pt said several family members have thyroid issues ) Assessment and Plan 1. Chronic fatigue and malaise - TSH - CBC auto differential - Iron level - Vitamin D Deficiency Screening (Vit D 25) - Lipid panel 2. Screening, lipid - TSH - CBC auto differential - Iron level - Vitamin D Deficiency Screening (Vit D 25) - Lipid panel 3. Vitamin D deficiency - TSH - CBC auto differential - Iron level - Vitamin D Deficiency Screening (Vit D 25) - Lipid panel 4. Iron deficiency - TSH - CBC auto differential - Iron level - Vitamin D Deficiency Screening (Vit D 25) - Lipid panel 5. Abdominal discomfort - [facility] 6. Family history of colon cancer - [facility] current treatment plan is effective, no change in therapy, orders and follow up as documented in EMR, lab results reviewed with patient, repeat labs ordered prior to next appointment, reviewed compliance with lifestyle measures, reviewed diet, exercise and weight control, reviewed medications and side effects in detail Return visit in 3 months. Subjective HPI this is a 27-year-old female patient who has been experiencing chronic fatigue. Since we found that she was iron deficient and vitamin D deficient she is taking supplementation she is feeling a bit better but she is noticing hair loss the fatigue is still there. She is also had a history of abdominal discomfort she had an ultrasound in the past which showed no acute findings there is a family history of grandmother having colon cancer sometimes her stool varies. No blood in her stool. Sometimes she will have a small amount of stool. Another times will be more diarrhea-like. Review of Systems Constitutional: Negative. Negative for activity change, appetite change and fever. HENT: Negative. Negative for congestion. Eyes: Negative. Negative for discharge. Respiratory: Negative. Negative for chest tightness. Cardiovascular: Negative. Gastrointestinal: Positive for abdominal distention. Endocrine: Negative. Negative for cold intolerance. Genitourinary: Negative for difficulty urinating. Musculoskeletal: Negative. Neurological: Negative. Negative for dizziness, facial asymmetry and headaches. Hematological: Negative. No Known Allergies Outpatient Medications Prior to Visit Medication Sig Dispense Refill FeroSul 325 (65 Fe) MG tablet TAKE 1 TABLET BY MOUTH DAILY WITH BREAKFAST 90 tablet 1 folic acid (Folvite) 1 MG tablet Take 1,000 mcg by mouth daily. lamoTRIgine (LaMICtal) 150 MG tablet TAKE 1 TABLET BY MOUTH EVERY MORNING and TAKE 1 & 1/2 (ONE AND ONE-HALF) TABLETS BY MOUTH EVERY DAY AT BEDTIME No facility-administered medications prior to visit. Patient Active Problem List Diagnosis Acne Seizures (HCC) Scalp cyst Dermoid cyst Past Medical History: Diagnosis Date Epilepsy (HCC) Scalp cyst Social History Tobacco Use Smoking status: Never Smokeless tobacco: Never Substance Use Topics Alcohol use: Not Currently Alcohol/week: 2.0 standard drinks of alcohol Past Surgical History: Procedure Laterality Date SOFT TISSUE TUMOR RESECTION WISDOM TOOTH EXTRACTION 07/2020 Family History Problem Relation Name Age of Onset Breast cancer Mother's Sister Aunt Other ([id number]) Brother No Known Problems Mother Heart attack Father's Brother No Known Problems Father Asthma Brother Brother Health Maintenance Topic Date Due HIV Screening Never done Depression Screening Never done Varicella Vaccines (1 of 2 - 13+ 2-dose series) Never done Pap Smear Never done DTaP/Tdap/Td Vaccines (7 - Td or Tdap) 08/08/2020 COVID-19 Vaccine ( - 2022- season) Never done Influenza Vaccine (Season Ended) 2024 Zoster Vaccines (1 of 2) 11/15/2045 RSV Immunization aged 60 or older (1 - 1-dose 60+ series) 2055 HIB Vaccines Completed Hepatitis B Vaccines Completed IPV Vaccines Completed Hepatitis A Vaccines Completed MMR Vaccines Completed Hepatitis C Screening Completed RSV Immunization under 20 Months Aged Out Meningococcal Vaccine Aged Out Rotavirus Vaccines Aged Out HPV Vaccines Aged Out Pneumococcal Vaccine: Pediatrics (0 to 5 Years) and At-Risk Patients (6 to 64 Years) Aged Out Objective BP 108/72 Pulse 90 Temp 36.7 C (98 F) Ht 5' 10.7 (1.796 m) Wt 203 lb (92.1 kg) LMP 10/16/2023 SpO2 97% BMI 28.55 kg/m Physical Exam Vitals and nursing note reviewed. Constitutional: Appearance: Normal appearance. HENT: Head: Normocephalic and atraumatic. Nose: No congestion or rhinorrhea. Mouth/Throat: Mouth: Mucous membranes are moist. Pharynx: Oropharynx is clear. No posterior oropharyngeal erythema. Eyes: Extraocular Movements: Extraocular movements intact. Conjunctiva/sclera: Conjunctivae normal. Pupils: Pupils are equal, round, and reactive to light. Cardiovascular: Pulses: Normal pulses. Heart sounds: Normal heart sounds. No murmur heard. Pulmonary: Effort: Pulmonary effort is normal. No respiratory distress. Breath sounds: Normal breath sounds. No wheezing. Abdominal: General: Abdomen is flat. Bowel sounds are normal. Palpations: Abdomen is soft. Tenderness: There is no abdominal tenderness. Musculoskeletal: General: No swelling. Cervical back: Normal range of motion. Skin: General: Skin is warm and dry. Neurological: General: No focal deficit present. Mental Status: She is alert and oriented to person, place, and time. Mental status is at baseline. Psychiatric: Mood and Affect: Mood normal. Data Reviewed and Summarized Labs: Lab Results Component Value Date WBC 6.3 06/03/2023 HGB 12.2 06/03/2023 HCT 37.8 06/03/2023 PLT 349 06/03/2023 TSH 2.849 02/27/2021 Lab Results Component Value Date NA 139 06/03/2023 K 3.9 06/03/2023 CL 103 06/03/2023 CO2 26 06/03/2023 BUN 6 (L) 06/03/2023 CREATININE 0.56 06/03/2023 GLUCOSE 97 06/03/2023 CALCIUM 9.4 06/03/2023 PROT 7.8 06/03/2023 BILITOT 0.4 06/03/2023 ALKPHOS 67 06/03/2023 AST 34 06/03/2023 ALT 29 06/03/2023 @GLUCOSELAB@ No results found for: CHLPL, CHOL No results found for: TRIG No results found for: HDL No results found for: LDLCALC No results found for: VLDL No results found for: CHOLHDLRATIO Imaging/Testing: US abdomen complete Narrative: Patient Name: SWETA CHRIS : 1995 Exam Date/Time: 08/15/2023 15:20 Procedure: US ABDOMEN COMPLETE Ordering Provider: SANTILLAN DIANA Reason For Exam: ABDOMINAL PAIN EXAMINATION: Complete abdominal ultrasound. EXAM DATE & TIME: 08/15/2023 3:20 PM EDT INDICATION: ABDOMINAL PAIN ADDITIONAL INFORMATION: 27-year-old female with abdominal pain presents for evaluation COMPARISON: None LIMITATIONS: As below TECHNIQUE: Ultrasound real-time scan with image documentation of the abdominal contents was performed. Color Doppler imaging was also employed. FINDINGS: LIVER Greatest transverse dimension: 15.5 cm. Echogenicity: Normal. Surface nodularity: Not visualized. Masses (size and location): None. GALLBLADDER Size and morphology: Normal caliber and wall thickness. Cholelithiasis: None. Pericholecystic fluid: None. Sonographic Parra's sign: Negative. BILE DUCTS Intrahepatic ducts: No biliary dilation Common bile duct: Normal caliber. Diameter: 4 mm PANCREAS The imaged portion of the pancreatic head is unremarkable. Visualization of the body and tail is limited due to overlying bowel gas artifact. RIGHT KIDNEY Size: 12.2 x 5.1 x 4.2 cm Renal cortex: Normal. Hydronephrosis: None. Calculi, cysts or masses: None. LEFT KIDNEY Size: 13.3 x 5.6 x 5.5 cm Renal cortex: Normal. Hydronephrosis: None. Calculi, cysts or masses: None. SPLEEN Size: 11.1 x 6.0 x 2.1 cm Parenchyma: Unremarkable. VESSELS Aorta: Visualized portions are unremarkable. IVC: Visualized portions are unremarkable. OTHER FINDINGS None. Impression: No acute sonographic abnormality identified. Report Dictated on Electronically Signed By: David Oh MD Electronically Signed Date/Time: 08/16/2023 1:32 PM EDT Rosalina Santillan MD documented in this encounter [facility] 10-24-2023 Miscellaneous Notes Addended by: LILLIAN SARGENT on: 10/25/2023 09:25 AM Modules accepted: Orders documented in this encounter [facility] 10-24-2023 Note Addended by: LILLIAN SARGENT on: 10/25/2023 09:25 AM Modules accepted: Orders [facility] 10-09-2023 Telephone encounter Note Recent Visits Date Type Provider Dept 06/03/23 Office Visit Rosalina Santillan MD [facility] Showing recent visits within past 365 days and meeting all other requirements Future Appointments Date Type Provider Dept 10/24/23 Appointment Rosalina Santillan MD [facility] Showing future appointments within next 90 days and meeting all other requirements Requested Prescriptions Pending Prescriptions Disp Refills FeroSul 325 (65 Fe) MG tablet [Pharmacy Med Name: FeroSul 325 mg (65 mg iron) tablet] 30 tablet 3 Sig: TAKE 1 TABLET BY MOUTH DAILY WITH BREAKFAST Provider: Rosalina Santillan MD Verified pharmacy: yes Verified day(s) supplied: yes Verified refill(s) needed (previous prescription showing no refills in chart): No - unable to verify prescription refills in chart Have you received any controlled medications from any other provider? No Overdue for visit: No If yes - patient scheduled? Yes Most recent labs completed in chart? N/A [facility] 10-09-2023 Miscellaneous Notes Recent Visits Date Type Provider Dept 06/03/23 Office Visit Rosalina Santillan MD [facility] Showing recent visits within past 365 days and meeting all other requirements Future Appointments Date Type Provider Dept 10/24/23 Appointment Rosalina Santillan MD [facility] Showing future appointments within next 90 days and meeting all other requirements Requested Prescriptions Pending Prescriptions Disp Refills FeroSul 325 (65 Fe) MG tablet [Pharmacy Med Name: FeroSul 325 mg (65 mg iron) tablet] 30 tablet 3 Sig: TAKE 1 TABLET BY MOUTH DAILY WITH BREAKFAST Provider: Rosalina Santillan MD Verified pharmacy: yes Verified day(s) supplied: yes Verified refill(s) needed (previous prescription showing no refills in chart): No - unable to verify prescription refills in chart Have you received any controlled medications from any other provider? No Overdue for visit: No If yes - patient scheduled? Yes Most recent labs completed in chart? N/A documented in this encounter [facility] 06-26-2023 Note HNO ID: [id number] Author: GERARD HARPER PA-C Service: ? Author Type: Physician Biology Faculty Member Type: Progress Notes Filed: 06/26/2023 18:23 Note Text: 06/26/2023 Patient presents with: Eye Problem: Right eye discomfort, red, swollen and drainage. Started this morning SUBJECTIVE: This is a 27 year old that is here today here for right red eye with matting and thick discharge that she awoke with today. It has gradually worsened throughout the day today. The upper lid is slightly swollen but not tender. 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 No vision changes or eye pain. No concern for foreign object or trauma. No itchy or watery eyes. No other allergy or sinus symptoms. Denies fever, chills, sweats, or fatigue. Patient denies wheezing, shortness of breath, increased WOB, or chest pain. No other URI or sick symptoms. Pain on scale of 0-10 with 0 being no pain and 10 being greatest pain: - Nothing makes the symptoms better. Nothing makes them worse. Self-treatment:. none The severity is mild and the symptoms are not improving. The patient did not have a similar problem in the last 3 months. The patient did not take any antibiotics in the last 3 months. Barriers to learning: none. Reviewed meds, OTCs, herbals or supplements. Reviewed allergies, medications, social history, and past medical history. No past medical history on file. ALLERGIES Patient has no known allergies. MEDICATIONS No current outpatient medications on file. No current facility-administered medications for this visit. Medications and allergies reviewed by this provider SOCIAL HISTORY REVIEW OF SYSTEMS Review of Systems ROS: constitutional-neg, HENT-neg, Eyes- eye complaint, heart-neg, respiratory-neg, skin-neg, lymph-neg, neuro- neg, Allergy- neg- All systems neg except as noted above in HPI. OBJECTIVE: BP 117/84 Pulse 84 Temp 37 ?C (98.6 ?F) (Tympanic) Resp 18 Wt 92.7 kg (204 lb 5.9 oz) SpO2 99% . Vital signs reviewed by this provider. Physical Exam Vitals reviewed. Constitutional: General: She is not in acute distress. Appearance: Normal appearance. She is well-developed and normal weight. She is not ill-appearing, toxic-appearing or diaphoretic. HENT: Head: Normocephalic and atraumatic. No right periorbital erythema or left periorbital erythema. Salivary Glands: Right salivary gland is not diffusely enlarged or tender. Left salivary gland is not diffusely enlarged or tender. Right Ear: Tympanic membrane, ear canal and external ear normal. Left Ear: Tympanic membrane, ear canal and external ear normal. Nose: Nose normal. No congestion or rhinorrhea. Right Sinus: No maxillary sinus tenderness or frontal sinus tenderness. Left Sinus: No maxillary sinus tenderness or frontal sinus tenderness. Eyes: General: Lids are normal. No allergic shiner, visual field deficit or scleral icterus. Right eye: No foreign body, discharge or hordeolum. Left eye: No foreign body, discharge or hordeolum. Extraocular Movements: Extraocular movements intact. Right eye: Normal extraocular motion and no nystagmus. Left eye: Normal extraocular motion and no nystagmus. Conjunctiva/sclera: Right eye: Right conjunctiva is injected. Exudate present. Pupils: Pupils are equal, round, and reactive to light. Pupils are equal. Musculoskeletal: Cervical back: Full passive range of motion without pain. No spinous process tenderness or muscular tenderness. Lymphadenopathy: Head: Right side of head: No submental, submandibular, tonsillar, preauricular or posterior auricular adenopathy. Left side of head: No submental, submandibular, tonsillar, preauricular or posterior auricular adenopathy. Cervical: No cervical adenopathy. Skin: General: Skin is warm. Capillary Refill: Capillary refill takes less than 2 seconds. Findings: No rash. Neurological: General: No focal deficit present. Mental Status: She is alert and oriented to person, place, and time. Cranial Nerves: No facial asymmetry. Psychiatric: Attention and Perception: Attention normal. Behavior: Behavior is cooperative. ASSESSMENT/PLAN: 1. Acute bacterial conjunctivitis of right eye - ICD9: 372.03, ICD10: H10.31 - OFLOXACIN 0.3 % EYE DROPS - Wash hands frequently. - Do not itch or touch eyes. - Use paper towels to wash eyes, and then dispose of after using. - Wash all linens (wash cloths) after each use. Do not share linens.. - Keep out contacts until symptoms have been gone for 3 days, and then start with a new pair.. - Recommend that if you wear eye make-up, you throw away everything you have used recently and buy new. - To remove crusting, wash eyes with no tears baby shampoo.. - Apply warm compresses to sore eyes/eyelids and then wash, 3x daily. Call PCP if sx worsen or no better. If you get eye pain or vision changes- go to ER If symptoms worsen, or new symptoms develop go to ER (more content not included)... [facility] 06-26-2023 Instructions Gerard Harper PA-C - 06/26/2023 6:17 PM EST ASSESSMENT/PLAN: 1. Acute bacterial conjunctivitis of right eye - - OFLOXACIN 0.3 % EYE DROPS - Wash hands frequently. - Do not itch or touch eyes. - Use paper towels to wash eyes, and then dispose of after using. - Wash all linens (wash cloths) after each use. Do not share linens.. - Keep out contacts until symptoms have been gone for 3 days, and then start with a new pair.. - Recommend that if you wear eye make-up, you throw away everything you have used recently and buy new. - To remove crusting, wash eyes with no tears baby shampoo.. - Apply warm compresses to sore eyes/eyelids and then wash, 3x daily. Call PCP if sx worsen or no better. If you get eye pain or vision changes- go to ER If symptoms worsen, or new symptoms develop go to ER. If you have worsening of breathing or breathing changes- go to ER. If you have persistent fever unrelieved by Tylenol/Motrin- go to the ER. Follow up as needed. Pt agreeable with plan and verbalized understanding. Barriers to learning: none. Gerard Harper PA-C documented in this encounter [facility] 06-26-2023 History of Present illness Narrative Images from the original note were not included. 06/26/2023 Patient presents with: Eye Problem: Right eye discomfort, red, swollen and drainage. Started this morning SUBJECTIVE: This is a 27 year old that is here today here for right red eye with matting and thick discharge that she awoke with today. It has gradually worsened throughout the day today. The upper lid is slightly swollen but not tender. 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 No vision changes or eye pain. No concern for foreign object or trauma. No itchy or watery eyes. No other allergy or sinus symptoms. Denies fever, chills, sweats, or fatigue. Patient denies wheezing, shortness of breath, increased WOB, or chest pain. No other URI or sick symptoms. Pain on scale of 0-10 with 0 being no pain and 10 being greatest pain: - Nothing makes the symptoms better. Nothing makes them worse. Self-treatment:. none The severity is mild and the symptoms are not improving. The patient did not have a similar problem in the last 3 months. The patient did not take any antibiotics in the last 3 months. Barriers to learning: none. Reviewed meds, OTCs, herbals or supplements. Reviewed allergies, medications, social history, and past medical history. No past medical history on file. ALLERGIES Patient has no known allergies. MEDICATIONS No current outpatient medications on file. No current facility-administered medications for this visit. Medications and allergies reviewed by this provider SOCIAL HISTORY REVIEW OF SYSTEMS Review of Systems ROS: constitutional-neg, HENT-neg, Eyes- eye complaint, heart-neg, respiratory-neg, skin-neg, lymph-neg, neuro- neg, Allergy- neg- All systems neg except as noted above in HPI. OBJECTIVE: BP 117/84 Pulse 84 Temp 37 C (98.6 F) (Tympanic) Resp 18 Wt 92.7 kg (204 lb 5.9 oz) SpO2 99% . Vital signs reviewed by this provider. Physical Exam Vitals reviewed. Constitutional: General: She is not in acute distress. Appearance: Normal appearance. She is well-developed and normal weight. She is not ill-appearing, toxic-appearing or diaphoretic. HENT: Head: Normocephalic and atraumatic. No right periorbital erythema or left periorbital erythema. Salivary Glands: Right salivary gland is not diffusely enlarged or tender. Left salivary gland is not diffusely enlarged or tender. Right Ear: Tympanic membrane, ear canal and external ear normal. Left Ear: Tympanic membrane, ear canal and external ear normal. Nose: Nose normal. No congestion or rhinorrhea. Right Sinus: No maxillary sinus tenderness or frontal sinus tenderness. Left Sinus: No maxillary sinus tenderness or frontal sinus tenderness. Eyes: General: Lids are normal. No allergic shiner, visual field deficit or scleral icterus. Right eye: No foreign body, discharge or hordeolum. Left eye: No foreign body, discharge or hordeolum. Extraocular Movements: Extraocular movements intact. Right eye: Normal extraocular motion and no nystagmus. Left eye: Normal extraocular motion and no nystagmus. Conjunctiva/sclera: Right eye: Right conjunctiva is injected. Exudate present. Pupils: Pupils are equal, round, and reactive to light. Pupils are equal. Musculoskeletal: Cervical back: Full passive range of motion without pain. No spinous process tenderness or muscular tenderness. Lymphadenopathy: Head: Right side of head: No submental, submandibular, tonsillar, preauricular or posterior auricular adenopathy. Left side of head: No submental, submandibular, tonsillar, preauricular or posterior auricular adenopathy. Cervical: No cervical adenopathy. Skin: General: Skin is warm. Capillary Refill: Capillary refill takes less than 2 seconds. Findings: No rash. Neurological: General: No focal deficit present. Mental Status: She is alert and oriented to person, place, and time. Cranial Nerves: No facial asymmetry. Psychiatric: Attention and Perception: Attention normal. Behavior: Behavior is cooperative. ASSESSMENT/PLAN: 1. Acute bacterial conjunctivitis of right eye - ICD9: 372.03, ICD10: H10.31 - OFLOXACIN 0.3 % EYE DROPS - Wash hands frequently. - Do not itch or touch eyes. - Use paper towels to wash eyes, and then dispose of after using. - Wash all linens (wash cloths) after each use. Do not share linens.. - Keep out contacts until symptoms have been gone for 3 days, and then start with a new pair.. - Recommend that if you wear eye make-up, you throw away everything you have used recently and buy new. - To remove crusting, wash eyes with no tears baby shampoo.. - Apply warm compresses to sore eyes/eyelids and then wash, 3x daily. Call PCP if sx worsen or no better. If you get eye pain or vision changes- go to ER If symptoms worsen, or new symptoms develop go to ER. If you have worsening of breathing or breathing changes- go to ER. If you have persistent fever unrelieved by Tylenol/Motrin- go to the ER. Follow up as needed. Pt agreeable with plan and verbalized understanding. Barriers to learning: none. Gerard Harper PA-C Medical Decision Making: Problems: Low: Acute, uncomplicated illness or injury Risk: Low: Low risk from testing/treatment Moderate: Drug management Medical Decision Making Level: 3 - Low I spent a total of 20 minutes on the date of the service which included preparing to see the patient, [id number] patient care, completing clinical documentation, performing a medically appropriate examination, counseling and educating the patient/family/caregiver, and ordering medications, tests, or procedures. documented in this encounter [facility] 06-03-2023 History of Present illness Narrative Images from the original note were not included. [facility] [address] [place] [address] [address] [facility] [id number] Dept: [phone] Dept Loc: [phone] Reason for Visit: Fatigue (GI issues and coughing if out in cold weather and after exercise ) Assessment and Plan 1. Seizures (HCC) chronic manager Dr. Simmons is following. Patient currently on Lamictal - CBC auto differential - Vitamin D Deficiency Screening (Vit D 25) - Vitamin B12 - Iron level - Comprehensive metabolic panel 2. Chronic fatigue and malaise - CBC auto differential - Vitamin D Deficiency Screening (Vit D 25) - Vitamin B12 - Iron level - Comprehensive metabolic panel 3. Hair loss - CBC auto differential - Vitamin D Deficiency Screening (Vit D 25) - Vitamin B12 - Iron level - Comprehensive metabolic panel 4. Cough in adult will order chest x-ray chronic cough greater than 8 weeks. - XR chest 2 views - CBC auto differential - Vitamin D Deficiency Screening (Vit D 25) - Vitamin B12 - Iron level - Comprehensive metabolic panel 5. Abdominal discomfort - US abdomen complete - US pelvis 6. Irregular periods - US abdomen complete - US pelvis - CBC auto differential - Vitamin D Deficiency Screening (Vit D 25) - Vitamin B12 - Iron level - Comprehensive metabolic panel current treatment plan is effective, no change in therapy, orders and follow up as documented in EMR, lab results reviewed with patient, repeat labs ordered prior to next appointment, reviewed compliance with lifestyle measures, reviewed diet, exercise and weight control, reviewed medications and side effects in detail Return visit in 3 months. Subjective Fatigue Associated symptoms include fatigue. Pertinent negatives include no congestion, fever or headaches. this is a 27-year-old female patient with multiple medical problems. Her past medical history significant for seizures in which she was seeing a neurologist she states for the last few months she just felt very fatigued she has been noticing a lot of hair loss. She states when people come over she just feels very tired. No new medications. She also notes that she has been having some abdominal discomfort. She states for the last couple of years she has been vegetarian she just reintroduced fish into her diet. She is also noted that she has been having abdominal discomfort no nausea or vomiting no change in bowel movements sometimes she does have a regular. She does see an [employer]IST[employer] at times are very heavy. Review of Systems Constitutional: Positive for fatigue. Negative for activity change, appetite change and fever. HENT: Negative. Negative for congestion. Eyes: Negative. Negative for discharge. Respiratory: Negative. Negative for chest tightness. Cardiovascular: Negative. Gastrointestinal: Negative. Endocrine: Negative. Negative for cold intolerance. Genitourinary: Negative for difficulty urinating. Musculoskeletal: Negative. Neurological: Negative. Negative for dizziness, facial asymmetry and headaches. Hematological: Negative. No Known Allergies Outpatient Medications Prior to Visit Medication Sig Dispense Refill folic acid (Folvite) 1 MG tablet Take 1,000 mcg by mouth daily. lamoTRIgine (LaMICtal) 150 MG tablet TAKE 1 TABLET BY MOUTH EVERY MORNING and TAKE 1 & 1/2 (ONE AND ONE-HALF) TABLETS BY MOUTH EVERY DAY AT BEDTIME No facility-administered medications prior to visit. Patient Active Problem List Diagnosis Acne Seizures (HCC) Scalp cyst Dermoid cyst Past Medical History: Diagnosis Date Epilepsy (HCC) Scalp cyst Social History Tobacco Use Smoking status: Never Smokeless tobacco: Never Substance Use Topics Alcohol use: Not Currently Alcohol/week: 2.0 standard drinks of alcohol Past Surgical History: Procedure Laterality Date SOFT TISSUE TUMOR RESECTION WISDOM TOOTH EXTRACTION 07/2020 Family History Problem Relation Name Age of Onset Breast cancer Mother's Sister Aunt Other ([id number]) Brother No Known Problems Mother Heart attack Father's Brother No Known Problems Father Asthma Brother Brother Health Maintenance Topic Date Due HIV Screening Never done COVID-19 Vaccine (1) Never done Varicella Vaccines (1 of 2 - 2-dose childhood series) Never done Depression Screening Never done Pap Smear Never done DTaP/Tdap/Td Vaccines (7 - Td or Tdap) 08/08/2020 Influenza Vaccine (1) 01/24/2023 Zoster Vaccines (1 of 2) 11/15/2045 RSV Immunization aged 60 or older (1 - 1-dose 60+ series) 2055 HIB Vaccines Completed Hepatitis B Vaccines Completed IPV Vaccines Completed Hepatitis A Vaccines Completed MMR Vaccines Completed Hepatitis C Screening Completed RSV Immunization under 20 Months Aged Out Meningococcal Vaccine Aged Out Rotavirus Vaccines Aged Out HPV Vaccines Aged Out Pneumococcal Vaccine: Pediatrics (0 to 5 Years) and At-Risk Patients (6 to 64 Years) Aged Out Objective BP (!) 146/76 Pulse 93 Temp 36.9 C (98.4 F) Ht 5' 10.7 (1.796 m) Wt 203 lb (92.1 kg) LMP 05/30/2023 (Exact Date) SpO2 99% BMI 28.55 kg/m Physical Exam Vitals and nursing note reviewed. Constitutional: Appearance: Normal appearance. HENT: Head: Normocephalic and atraumatic. Nose: No congestion or rhinorrhea. Mouth/Throat: Mouth: Mucous membranes are moist. Pharynx: Oropharynx is clear. No posterior oropharyngeal erythema. Eyes: Extraocular Movements: Extraocular movements intact. Conjunctiva/sclera: Conjunctivae normal. Pupils: Pupils are equal, round, and reactive to light. Cardiovascular: Pulses: Normal pulses. Heart sounds: Normal heart sounds. No murmur heard. Pulmonary: Effort: Pulmonary effort is normal. No respiratory distress. Breath sounds: Normal breath sounds. No wheezing. Abdominal: General: Abdomen is flat. Bowel sounds are normal. Palpations: Abdomen is soft. Tenderness: There is no abdominal tenderness. Musculoskeletal: General: No swelling. Cervical back: Normal range of motion. Skin: General: Skin is warm and dry. Neurological: General: No focal deficit present. Mental Status: She is alert and oriented to person, place, and time. Mental status is at baseline. Psychiatric: Mood and Affect: Mood normal. Data Reviewed and Summarized Labs: Lab Results Component Value Date WBC 6.4 04/06/2022 HGB 13.3 04/06/2022 HCT 40.1 04/06/2022 PLT 290 04/06/2022 TSH 2.849 02/27/2021 Lab Results Component Value Date NA 140 02/27/2021 K 4.7 02/27/2021 CL 105 02/27/2021 CO2 27 02/27/2021 BUN 6 (L) 02/27/2021 CREATININE 0.71 02/27/2021 GLUCOSE 84 02/27/2021 CALCIUM 10.1 02/27/2021 PROT 7.8 04/06/2022 BILITOT 0.6 04/06/2022 ALKPHOS 62 04/06/2022 AST 26 04/06/2022 ALT 13 04/06/2022 @GLUCOSELAB@ No results found for: CHLPL, CHOL No results found for: TRIG No results found for: HDL No results found for: LDLCALC No results found for: VLDL No results found for: CHOLHDLRATIO Imaging/Testing: OUTSIDE IMAGING SCAN Ordered by an unspecified provider. Rosalina Santillan MD documented in this encounter [facility] 04-03-2023 History of Present illness Narrative Subjective Sweta Chris 27 y.o. HPI The patient states that she has been doing very well from a neurological standpoint and has had no further seizures. She is compliant with her Lamictal and takes 150 mg in the morning and 225 mg in the evening. The patient is also compliant with her folic acid, B12, vitamin D and omega-3 fatty acids. The patient had labs done on 04/06/2022 and her CBC and liver function test were both within normal limits. The patient states that she is getting 8 hours of sleep at night. The patient states that she only occasionally drinks alcohol. Review of Systems Neurological: Positive for seizures. All other systems reviewed and are negative. Patient Active Problem List Diagnosis Jacksonian epilepsy (CMS/HCC) Seizure (CMS/HCC) Past Medical History: Diagnosis Date Epilepsy, unspecified, not intractable, without status epilepticus (CMS/HCC) Epilepsy Past Surgical History: Procedure Laterality Date OTHER SURGICAL HISTORY 03/14/2020 Cyst excision OTHER SURGICAL HISTORY 02/28/2021 [place] tooth extraction Social History Socioeconomic History Marital status: Single Spouse name: Not on file Number of children: Not on file Years of education: Not on file Highest education level: Not on file Occupational History Not on file Tobacco Use Smoking status: Never Smokeless tobacco: Never Vaping Use Vaping Use: Never used Substance and Sexual Activity Alcohol use: Never Drug use: Never Sexual activity: Not on file Other Topics Concern Not on file Social History Narrative Not on file Social Determinants of Health Financial Resource Strain: Not on file Food Insecurity: Not on file Transportation Needs: Not on file Physical Activity: Not on file Stress: Not on file Social Connections: Not on file Intimate Partner Violence: Not on file Housing Stability: Not on file Family History Problem Relation Name Age of Onset Other (Duchenne muscle) Brother Alzheimer's disease Maternal Grandmother Other (Cerebrovascular) Maternal Grandmother Alzheimer's disease Maternal Grandfather Current Outpatient Medications Medication Instructions cholecalciferol (Vitamin D-3) 50 MCG (2000 UT) tablet 1 tablet, oral, Daily cyanocobalamin (Vitamin B-12) 1,000 mcg tablet 1 tablet, oral, Daily folic acid (Folvite) 1 mg tablet 1 tablet, oral, Daily lamoTRIgine (LaMICtal) 150 mg tablet oral, Daily, Take 1 tablet daily in am and 1 1/2 tabs at bedtime omega-3 fatty acids-fish oil (One-Per-Day [place]-3) 684-1,200 mg capsule oral No Known Allergies Objective BP 118/74 Pulse 92 Temp 36.7 C (98.1 F) Resp 18 Ht 1.803 m (5' 11) Wt 91 kg (200 lb 9.6 oz) BMI 27.98 kg/m GENERAL APPEARANCE: No distress, alert and cooperative. MENTAL STATE: Orientation was normal to time, place and person. Recent and remote memory was intact. Attention span and concentration were normal. Language testing was normal for comprehension, repetition, expression, and naming. Calculation was intact. The patient could correctly interpret a picture, and copy a diagram. General fund of knowledge was intact. Mini-mental status examination was performed with no errors. CRANIAL NERVES: Cranial nerves were normal. CN 2- Visual Acuity OD: 20/20 (corrected) OS: 20/20 (corrected); visual bueno full to confrontation. CN 3, 4, 6- Pupils round, 4 mm in diameter, equally reactive to light. No ptosis. EOMs normal alignment, full range of movement, no nystagmus CN 5- Facial sensation intact bilaterally. Normal corneal reflexes. CN 7- Normal and symmetric facial strength. Nasolabial folds symmetric. CN 8- Hearing intact to finger rub, whisper. CN 9- Palate elevates symmetrically. Normal gag reflex. CN 11- Normal strength of shoulder shrug and neck turning CN 12- Tongue midline, with normal bulk and strength; no fasciculations. MOTOR: Motor exam was normal. Muscle bulk and tone were normal in both upper and lower extremities. Muscle strength was 5/5 in distal and proximal muscles in both upper and lower extremities. No fasciculations, tremor or other abnormal movements were present. GAIT: Station was stable with a normal base and negative Romberg sign. Gait was stable with a normal arm swing and speed. No ataxia, shuffling, steppage or waddling was noted. Tandem gait was intact. Postural reflexes were normal. Assessment/Plan The patient is stable from a neurological standpoint. The patient should continue her lamotrigine at the current dose. The patient needs to continue folic acid 1 mg a day The patient does need a CBC and liver function test done every 6 months. The patient needs to get at least 8 hours of sleep a night and avoid excessive alcohol intake. It is certainly okay for the patient to drive. I discussed all these issues in detail with the patient and answered all her questions. The patient will follow up with me in one year. documented in this encounter [facility] Work Phone: 04-03-2023 Instructions Hans Simmons MD - 04/03/2023 8:00 AM EST The patient is stable from a neurological standpoint. The patient should continue her lamotrigine at the current dose. The patient needs to continue folic acid 1 mg a day The patient does need a CBC and liver function test done every 6 months. The patient needs to get at least 8 hours of sleep a night and avoid excessive alcohol intake. It is certainly okay for the patient to drive. I discussed all these issues in detail with the patient and answered all her questions. The patient will follow up with me in one year. documented in this encounter [facility] Work Phone: 02-24-2020 History of Present illness Narrative The patient states that she is doing well from a neurological standpoint. The patient has had no seizures or new neurological problems. She is compliant with her lamotrigine and folic acid. The patient states that she gets about 8 to 9 hours of sleep at night. She rarely drinks alcohol.In February 2020, the patient had a CBC liver function tests were normal.Her lamotrigine level at that time was 12.9.The patient did have a CBC and liver function test done last year that were normal.Her B12 and vitamin D levels were normal as well. 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, without mention of intractable epilepsy documented in this encounter [facility] Work Phone: Evaluation note* Diagnosis Seizures (HCC)- Primary Other convulsions Chronic fatigue and malaise Hair loss Unspecified alopecia Cough in adult Abdominal discomfort Abdominal pain, unspecified site Irregular periods Cough in adult [facility] Cough in adult [facility] [place] [facility] Diagnosis Acute bacterial conjunctivitis of right eye- Primary [facility] [place] [facility] Diagnosis Abdominal discomfort Abdominal pain, unspecified site Irregular periods [facility] [place] [facility] Diagnosis Abdominal discomfort Abdominal pain, unspecified site Irregular periods [facility] Diagnosis Localization-related (focal) (partial) symptomatic epilepsy and epileptic syndromes with simple partial seizures, not intractable, without status epilepticus (HCC)- Primary documented in this encounter [facility] note* Diagnosis Chronic fatigue and malaise- Primary Screening, lipid Vitamin D deficiency Iron deficiency Disorders of iron metabolism Abdominal discomfort Abdominal pain, unspecified site Family history of colon cancer Family history of malignant neoplasm of gastrointestinal tract documented in this encounter [facility] note* Diagnosis Chronic fatigue and malaise- Primary Screening, lipid Vitamin D deficiency Iron deficiency Disorders of iron metabolism Abdominal discomfort Abdominal pain, unspecified site Family history of colon cancer Family history of malignant neoplasm of gastrointestinal tract documented in this encounter [facility] note* Diagnosis Acute non intractable tension-type headache- Primary documented in this encounter [facility] note* Diagnosis Unspecified convulsions (HCC)- Primary documented in this encounter [facility] note* Diagnosis Seizure (Multi)- Primary Other convulsions Jacksonian epilepsy (Multi) Localization-related (focal) (partial) epilepsy and epileptic syndromes with simple partial seizures, without mention of intractable epilepsy documented in this encounter [facility] Work Phone: Evaluation note* Diagnosis Theresa vaginitis- Primary Candidiasis of vulva and vagina documented in this encounter [facility] Work Phone: Evaluation note* Diagnosis Chronic fatigue and malaise- Primary Seizures (HCC) Other convulsions Hair loss Unspecified alopecia Blood pressure alteration Other abnormal clinical finding documented in this encounter [facility] note* Diagnosis Unspecified convulsions (HCC)- Primary Chronic fatigue and malaise- Primary Seizures (HCC) Other convulsions Hair loss Unspecified alopecia Blood pressure alteration Other abnormal clinical finding documented in this encounter [facility] [place] for referral (narrative)* Consultation (Routine) - Pending Review Specialty Diagnoses / Procedures Referred By Saar hay Referred To Contact Gastroenterology Diagnoses Abdominal discomfort Family history of colon cancer Procedures [place] OFFICE/OUTPATIENT [facility] 60 MINUTES Rosalina Santillan MD [address] [place] [address] [facility] [place] [place] [address] Referral ID Status Reason Start Date Expiration Date Visits Requested Visits Authorized [id number] Pending Review Specialty Services Required 10/24/2023 10/23/2024 1 1 [facility] Family History Brother Name Dates Details Family history of Duchenne m uscle dystrophy(V17.89, Z82.0) Status:Active Unknown Family Member Name Dates Details Denies Family history of sei zures: Brother(V19.8, Z84.89) Status: Family history of Duchenne m uscle dystrophy: Brother(V17.89, Z82.0) Status:Active Family history of Alzheimer' s disease: Maternal Grandmother, Paternal Grandmother(V17.2, Z82.0) Status:Active Family history of cerebrovas cular accident (CVA): Maternal Grandmother(V17.1, Z82.3) Status:Active Unknown Family Member Name Dates Details Denies Family history of sei zures: Brother(V19.8, Z84.89) Status: Family history of Duchenne m uscle dystrophy: Brother(V17.89, Z82.0) Status:Active Family history of Alzheimer' s disease: Maternal Grandmother, Paternal Grandmother(V17.2, Z82.0) Status:Active Family history of cerebrovas cular accident (CVA): Maternal Grandmother(V17.1, Z82.3) Status:Active Unknown Family Member Name Dates Details Denies Family history of sei zures: Brother(V19.8, Z84.89) Status: Family history of Duchenne m uscle dystrophy: Brother(V17.89, Z82.0) Status:Active Family history of Alzheimer' s disease: Maternal Grandmother, Paternal Grandmother(V17.2, Z82.0) Status:Active Family history of cerebrovas cular accident (CVA): Maternal Grandmother(V17.1, Z82.3) Status:Active Unknown Family Member Name Dates Details Denies Family history of sei zures: Brother(V19.8, Z84.89) Status: Family history of Duchenne m uscle dystrophy: Brother(V17.89, Z82.0) Status:Active Family history of Alzheimer' s disease: Maternal Grandmother, Paternal Grandmother(V17.2, Z82.0) Status:Active Family history of cerebrovas cular accident (CVA): Maternal Grandmother(V17.1, Z82.3) Status:Active Advance Directives Documents on File Type Date Recorded Patient Patrol Inspector Expl anation ACP-Advance Directive ACP-Power of Elevated Guard Latest Code Status on File Code Status Date Activated Date Inactivated Comments Full Code 12/07/2015 6:29 AM 12/07/2015 12:34 PM Summary Purpose Additional Source Comments Care Teams (unrecognized sec tion and content) Pattern Developer Relationship Specialty Start Date End Date Rosalina Santillan MD [address], [place] [id number] PCP - General Family Medicine 07/19/15 Pattern Developer Relationship Specialty Start Date End Date Rosalina Santillan MD [address] [place] [address] PCP - General 07/19/15 Pattern Developer Relationship Specialty Start Date End Date Rosalina Santillan MD [address] [place] [address] Rd [address] [place], [place] [id number] PCP - General 07/19/15 Pattern Developer Relationship Specialty Start Date End Date Rosalina Santillan MD [address] [place] [address] Rd [address] [place] [address] PCP - General 07/19/15 Pattern Developer Relationship Specialty Start Date End Date Rosalina Santillan MD [address] [place] [address] [address] [place], [place] [id number] PCP - General 07/19/15 Pattern Developer Relationship Specialty Start Date End Date Rosalina Santillan MD [address] [place], [place] [phone] PCP - General 07/19/15 Pattern Developer Relationship Specialty Start Date End Date Rosalina Santillan MD [address] [place] [address] Rd [address] [place] [address] PCP - General 07/19/15 Pattern Developer Relationship Specialty Start Date End Date Rosalina Santillan MD [address] [place] [address] Rd [address] [place] [address] PCP - General 07/19/15 Pattern Developer Relationship Specialty Start Date End Date Rosalina Santillan MD [address] [place] [id number] PCP - General 07/19/15 Pattern Developer Relationship Specialty Start Date End Date Rosalina Santillan MD [address] [place] [address] [address] [place] [id number] PCP - General 07/19/15 Pattern Developer Relationship Specialty Start Date End Date Rosalina Santillan MD [address] [place] [address] Rd [address] [place] [address] PCP - General 07/19/15 Pattern Developer Relationship Specialty Start Date End Date Rosalina Santillan MD [address] [place] [address] [address] [place] [address] PCP - General 07/19/15 INFORMATION SOURCE (unrecogn ized section and content) DATE CREATED AUTHOR 04/24/2021 [facility] DATE CREATED AUTHOR AUTHOR'S ORGANIZ ATION 03/18/2022 [facility] DATE CREATED AUTHOR AUTHOR'S ORGANIZ ATION 03/18/2022 [employer] DATE CREATED AUTHOR AUTHOR'S ORGANIZ ATION 06/28/2023 [facility] DATE CREATED AUTHOR AUTHOR'S ORGANIZ ATION 02/03/2024 [facility] DATE CREATED AUTHOR AUTHOR'S ORGANIZ ATION 10/14/2024 [facility] DATE CREATED AUTHOR AUTHOR'S ORGANIZ ATION 11/25/2024 [facility] DATE CREATED AUTHOR AUTHOR'S ORGANIZ ATION 12/21/2024 [facility] Reason for Visit (unrecogniz ed section and content) Reason Comments Seizures Reason Comments Fatigue GI issues and coughi ng if out in cold weather and after exercise Reason Comments Eye Problem Right eye discomfort , red, swollen and drainage. Started this morning Reason Comments Med Refill Reason Comments Follow-up Hair loss and fatigu e, would like to have lab work to check for hypothyroidism pt said several family members have thyroid issues Reason Comments Headache Ongoing headaches. S tarted last Friday02/03/24. Has had a headache everyday since then. Some days are better than others. Has been taking tylenol. Pain is mostly in the front behind eyes, sometimes its on the top of head, sometimes its on the side. Started period last Friday-unsure if related. Reason Comments Vaginal Discharge Reason Comments Hypertension Source Comments (unrecognize d section and content) In the event this informatio n is protected by the Federal Confidentiality of Alcohol and Drug Abuse Patient Records regulations: The Federal rules restrict any use of the information to criminally investigate or prosecute any alcohol or drug abuse patient.[facility] FOR RECORDS PERTAINING TO PATIENTS WHO ARE OR HAVE BEEN ENROLLED IN A CHEMICAL DEPENDENCY/SUBSTANCEABUSE PROGRAM, SOME INFORMATION MAY BE OMITTED. This clinical summary was aggregated from multiple sources. Caution should be exercised in using it in the provision of clinical care. This summary normalizes information from multiple sources, and as a consequence, information in this document may materially change the coding, format and clinical context of patient data. In addition, data may be omitted in some cases. CLINICAL DECISIONS SHOULD BE BASED ON THE PRIMARY CLINICAL RECORDS. [facility]. provides no warranty or guarantee of the accuracy or completeness of information in this document.
== END | disposition home or self-care (01) ==
LOC: OPMRI 15:40
PROVIDERS: PCP Family Medicine
DX: R56.9 Unspecified convulsions (principal); R51.9 Headache, unspecified
CPT/HCPCS: 70551

== ENCOUNTER → 2025-05-10 | Outpatient (CLI) | payer OTHER, SELFPAY ==
[2025-05-10 10:08] LABS: AST(SGOT) 20 U/L (<=31); Alanine Aminotransfer ALT/SGPT 14 U/L (<=34); Albumin, Serum 4.7 g/dL (3.5-5.0); Alkaline Phosphatase 79 U/L (35-104); Bilirubin, Direct 0.19 mg/dL (0.00-0.30); Globulin 2.9 g/dL (2.2-4.2)
[2025-05-10 10:44] LABS: Hematocrit 42.8 % (37-47); Hemoglobin 14.1 g/dL (12.0-15.0); Immature Granulocytes Count 0.020 X10^3/uL (0.0-0.0); Mean Corp Hgb Conc 32.9 g/dL (32-36); Mean Corpuscular Volume 87.9 fL (81-99); Mean Platelet Vol. 10.1 fl (6.2-12.0); NRBC Flagged by Analyzer 0 % (0-5); Platelet Count 338 K/mm3 (150-450); RBC Distribution Width CV 12.2 % (11.6-14.6); RBC Distribution Width SD 39.2 fl (35.1-43.9); Red Blood Count 4.87 M/mm3 (4.2-5.4); White Blood Count 6.6 K/mm3 (4.4-11.0)
== END | disposition home or self-care (01) ==
LOC: LAB 08:39
PROVIDERS: PCP Family Medicine
DX: R56.9 Unspecified convulsions (principal)
CPT/HCPCS: 36415; 80076; 85025